=== PATIENT | male | born 1950 | race Caucasian/White ===

== ENCOUNTER → 2016-10-12 | Outpatient (REF) | payer MEDICARE, BC ==
[2016-10-12 14:18] LABS: FERRITIN 79 NG/ML (26-388); PERCENT SATURATION 12.5 % (19.7-37.4); TOTAL IRON BINDING CAPACITY 345 UG/DL (250-450); TOTAL PROTEIN 6.9 GM/DL (6.4-8.2)
[2016-10-12 14:19] LABS: RETIC HEMOGLOBIN CONTENT CHr 31.4 PG (24-36); RETICULOCYTE % ADVIA2120 3.3 % (0.5-1.5)
[2016-10-12 14:21] LABS: VITAMIN B12 LEVEL 687 PG/ML
[2016-10-12 14:32] LABS: FOLATE > 24.0 NG/ML
[2016-10-14 13:47] LABS: ALBUMIN 4.03 GM/DL (3.29-5.55); ALBUMIN % 58.4 % (55.8-66.1)
== END ==
LOC: M LAB REF 13:13
PROVIDERS: ATTEND Internal Medicine Medical Oncology
DX: D64.9 Anemia, unspecified (principal)

== ENCOUNTER → 2016-10-26 | Outpatient (REF) | payer MEDICARE, BC | LOC: M LAB REF 16:35 | PROVIDERS: ATTEND Internal Medicine Medical Oncology | DX: D64.9 Anemia, unspecified (principal) ==

== ENCOUNTER → 2016-11-23 | Outpatient (REF) | payer MEDICARE, BC ==
[~2016-11-23] MED LIST: ASCO500T PO; ASPI1TAB PO; ATEN50TA2 PO; BUSP15TA47 PO; CITA40TA4 PO; CLON0.25 PO; COLA100C PO; COMBAER6 INH; DOXY100T PO; ENAL20TA PO; FERR324T2 PO; FISH1000 PO; FLON1SPR; GABA600T PO; HYDR-3713 PO; INSURSD SC; JANU100T PO; LIDO1OIN2 TOP; LIDO5DIS36 TD; MELO15TA4 PO; METF1000 PO; MIRA33504 PO; OMEP40CA2 PO; SENO8.6T10 PO; SIMV20TA2 PO; TRAM50TA2 PO; TYLE325T5 PO; TYLE500T78 PO; VITA10002 PO
== END ==
LOC: M LAB REF 17:11
PROVIDERS: ATTEND Internal Medicine Medical Oncology
DX: D50.9 Iron deficiency anemia, unspecified (principal)

== ENCOUNTER 2016-11-26 13:48 | Inpatient (IN) | payer MEDICARE, BC ==
[~2016-11-26] VITALS: Ht 182.9 cm; Wt 88.5 kg
[2016-11-26 17:40] VITALS: BP 170/82
[2016-11-26] MEDS ORDERED: NS 1,000 ML IV SCH (18:46)
[2016-11-26] MEDS ORDERED: ACETAMINOPHEN TAB 650MG DOSE (2X325MG) PO PRN (19:00)
[2016-11-26] MEDS ORDERED: TYLE500T78 PO (19:21)
[2016-11-26] MEDS ORDERED: BUSP15TA47 PO (19:27)
[2016-11-26] MEDS ORDERED: CLON0.25 PO (19:27)
[2016-11-26] MEDS ORDERED: ATEN50TA2 PO (19:27)
[2016-11-26] MEDS ORDERED: COMBAER6 INH (19:27)
[2016-11-26] MEDS ORDERED: ASPI1TAB PO (19:27)
[2016-11-26] MEDS ORDERED: ASCO500T PO (19:27)
[2016-11-26] MEDS ORDERED: HYDR-3713 PO (19:27)
[2016-11-26] MEDS ORDERED: CITA40TA4 PO (19:27)
[2016-11-26] MEDS ORDERED: TYLE325T5 PO (19:27)
[2016-11-26] MEDS ORDERED: COLA100C3 PO (19:30)
[2016-11-26] MEDS ORDERED: VITA10002 PO (19:30)
[2016-11-26] MEDS ORDERED: GABA600T PO (19:37)
[2016-11-26] MEDS ORDERED: FISH1000 PO (19:37)
[2016-11-26] MEDS ORDERED: DOXY100T PO (19:37)
[2016-11-26] MEDS ORDERED: FERR324T2 PO (19:37)
[2016-11-26] MEDS ORDERED: FLON1SPR (19:37)
[2016-11-26] MEDS ORDERED: INSURSD SC (19:41)
[2016-11-26] MEDS ORDERED: LIDO1OIN2 TOP (19:43)
[2016-11-26] MEDS ORDERED: LIDO5DIS36 TD (19:44)
[2016-11-26] MEDS ORDERED: OMEP40CA2 PO (19:45)
[2016-11-26] MEDS ORDERED: MIRA33504 PO (19:48)
[2016-11-26] MEDS ORDERED: SIMV20TA2 PO (19:48)
[2016-11-26] MEDS ORDERED: SENO8.6T10 PO (19:49)
[2016-11-26] MEDS ORDERED: JANU100T PO (19:51)
[2016-11-26] MEDS ORDERED: TRAM50TA2 PO (19:51)
[2016-11-26] MEDS ORDERED: ENAL20TA PO (19:51)
[2016-11-26] MEDS ORDERED: MELO15TA4 PO (19:51)
[2016-11-26] MEDS ORDERED: METF1000 PO (19:51)
[2016-11-26 19:55] VITALS: BP 167/82
[2016-11-26] MEDS ORDERED: GLUCAGON FOR INJ 1 MG VIAL (J1610) SC PRN (20:30)
[2016-11-26] MEDS ORDERED: ALBUTEROL 90 MCG/ACT 8GM HFA INHALER INH PRN (20:30)
[2016-11-26] MEDS ORDERED: DEXTROSE 50% 50 ML SYRINGE IV PRN (20:30)
[2016-11-26] MEDS ORDERED: clonazePAM 0.5 MG TAB PO SCH (20:30)
[2016-11-26] MEDS ORDERED: GLUCOSE 4 GM CHEW TABLET PO PRN (20:30)
--- NOTE | 2016-11-26 20:51 | HPEPDOC ---
General Date of Admission Nov 26, 2016 at 17:22 Chief Complaint The patient is a 66-year-old male admitted with a reason for visit of Acute Kid Injury, Hypercalcemia. History of Present Illness 66-year-old male with past medical history of hypertension, dyslipidemia, diabetes mellitus, iron deficiency anemia, GERD, and depression presented initially to the [facility] hospital after he was noted to have elevated serum calcium levels and acute kidney injury on blood work. Apparently, the patient was getting worked up for anemia by his starch cooker, Dr. Cottrell, who had requested the patient to get a screening EGD and colonoscopy done. However, prior to getting this done his lab work was concerning for the aforementioned values. The patient was subsequently admitted at [facility] for hypercalcemia and acute renal failure. During his time there, the patient was given IV fluid hydration and a workup for hypercalcemia was initiated. The patient has been transferred here today at the request of his attending physician, Dr. Rakesh Renteria at [facility], as the patient's calcium levels have remained elevated despite IV fluid hydration, and his renal function has not significantly improved. At this time, the patient states that he is feeling generally fatigued, but denies any acute complaints of shortness of breath, chest pain, palpitations, lightheadedness, dizziness, abdominal pain, or any nausea/vomiting/diarrhea. As far as the patient's clinical status at this time, a workup for multiple myeloma is underway, and blood work is pending from [facility]. Nephrology has been consulted here to aid in the treatment of hypercalcemia. The patient will be admitted under the service of Dr Navarro for further evaluation and management. Home Medications Scheduled (Flonase Allergy Relief) 50 Mcg/Act Spr 2 SPRAYS NA DAILY (Reported) Albuterol/Ipratropium (Combivent Respimat 20-100 Mcg/Act) 1 Aer Aer 1 PUFF INH QID (Reported) Ascorbic Acid (Ascorbic Acid) 500 Mg Tab 500 MG PO DAILY (Reported) Aspirin (Aspirin 81) 81 Mg Tab 81 MG PO DAILY (Reported) Atenolol (Atenolol) 50 Mg Tab 50 MG PO DAILY (Reported) Buspirone HCl (Buspirone HCl) 15 Mg Tab 15 MG PO TID (Reported) Citalopram Hydrobromide (Citalopram Hydrobromide) 40 Mg Tab 40 MG PO DAILY ( Reported) Clonazepam (Clonazepam Odt) 0.25 Mg Tab 0.25 MG PO BID (Reported) VERIFIED RX WITH PHARMACY. WAS RECEIVING 0.5MG TABS AT [facility] Cyanocobalamin (Vitamin B-12) 1,000 Mcg Tab 1,000 MCG PO DAILY (Reported) Docusate Sod/Senna (Senokot S 8.6-50 mg) 1 Tab Tab 1 TAB PO QHS (Reported) Docusate Sodium (Colace) 100 Mg Cap 100 MG PO BID (Reported) STARTED AT [facility] Doxycycline Hyclate (Doxycycline Hyclate) 100 Mg Tab 100 MG PO BID (Reported) STARTED AT [facility] Enalapril Maleate (Enalapril Maleate) 20 Mg Tab 20 MG PO QHS (Reported) Ferrous Sulfate (Ferrous Sulfate) 324 Mg Tab 324 MG PO BID (Reported) Fish Oil (Fish Oil) 1,000 Mg Cap 1,000 MG PO DAILY (Reported) Gabapentin (Gabapentin) 600 Mg Tab 600 MG PO TID (Reported) RECEIVING BID AT [facility], ON TID AT HOME Insulin Human Regular (Humulin R) 1 Units/0.01 Ml Soln 0 SC ACHS (Reported) STARTED AT [facility] Lidocaine (Lidoderm) 5 % Dis 1 PATCH TD DAILY (Reported) STARTED AT [facility] Meloxicam (Meloxicam) 15 Mg Tab 15 MG PO DAILY (Reported) Metformin Hydrochloride (Metformin HCl) 1,000 Mg Tab 1,000 MG PO BID (Reported ) Omeprazole (Omeprazole) 40 Mg Cap 40 MG PO QHS (Reported) WAS PUT ON PANTOPRAZOLE AT [facility] Polyethylene Glycol (Miralax) 1 Pow Pow 17 GM PO DAILY (Reported) STARTED AT [facility] Simvastatin (Simvastatin) 20 Mg Tab 20 MG PO QHS (Reported) WAS TAKING PRAVASTATIN 40MG AT [facility] Sitagliptin Phosphate (Januvia) 100 Mg Tab 100 MG PO DAILY (Reported) Scheduled PRN Acetaminophen (Tylenol) 325 Mg Tab 650 MG PO Q6H PRN PRN PAIN / FEVER (Reported ) Acetaminophen/Hydrocodone (Hydrocodone/Acetaminophen 5-325 mg) 1 Tab Tab 1 TAB PO Q6H PRN PRN PAIN (Reported) STARTED AT [facility] Tramadol HCl (Tramadol HCl) 50 Mg Tab 50 MG PO Q6H PRN PRN PAIN (Reported) Allergies Coded Allergies: No Known Allergies (Unverified , 11/26/16) Past Medical History Medical History As noted in HPI. Family History Significant Family History: No pertinent family hx Social History * Smoker: Denies Alcohol: Denies Drugs: denies Recent Travel/Sick Contacts: Denies: Recent sick contacts, Recent travel Review of Symptoms Other systems 10 point review of systems negative unless otherwise specified in HPI. Physical Examination General Exam: Positive: Alert, Cooperative, No Acute Distress ENT Exam: Positive: Atraumatic, Mucous membr. moist/pink Neck Exam: Negative: JVD Chest Exam: Positive: Clear to auscultation, Normal air movement Heart Exam: Positive: Normal S1, Normal S2, Rate Normal Telemetry: Positive: Sinus Abdomen Exam: Positive: Soft, Negative: Tenderness Extremity Exam: Negative: Swelling, Tenderness Vital Signs As noted in the EMR. Laboratory Data Labs 24H Laboratory Tests 2 11/26/16 19:27: 25-Hydroxy Vitamin D Total 48.6, Parathyroid Hormone (Intact) < 6.3L Plan / VTE VTE Prophylaxis Ordered?: Yes Plan Plan Hypercalcemia possibly secondary to multiple myeloma Admit to PCU SPEP, UPEP, immunofixation studies already ordered, and currently pending from [facility]-Will need to follow-up on results once they become available Patient's serum calcium was initially noted to be 14.4, is currently down trending at 13.2 Continue IV fluid hydration at 75 mL's an hour Calcitonin 400 interunits every 12 hours ordered PTH-RP, PTH intact, vitamin D levels ordered CT of the chest with no masses found from [facility] Nephrology consultation, will see the patient in the a.m. Acute kidney injury Patient's initial serum creatinine noted to be 2.5 at [facility], this is down trending and currently 2.2 Baseline noted to be close to 1.0 Possibly related to underlying multiple myeloma Renal ultrasound with no acute abnormalities noted Urine studies noted Continue to withhold nephrotoxins IV fluid hydration Nephrology on board History of Iron deficiency anemia Hemoglobin noted to be 7.3 on lab work this morning If the patient's hemoglobin continues to trend downward, would benefit from a transfusion Continue ferrous sulfate Chest wall abscess, status post I&D at [facility] Continue doxycycline Diabetes mellitus Continue insulin sliding scale Hypertension Continue current regimen, DEISY inhibitor withheld secondary to YEVGENIY Dyslipidemia Continue statin GERD Continue PPI Depression Continue citalopram, BuSpar DVT prophylaxis-heparin subcutaneous The patient will be admitted under the service of Dr. Navarro , who will begin to follow the patient on 11/27. PÉREZ ACEVEDO MD Nov 26, 2016 20:51
[2016-11-26] MEDS ORDERED: FERROUS SULFATE 325MG TAB PO SCH (21:00)
[2016-11-26] MEDS: CALCITONIN SALMON (MIACALCIN) 400INTERNATIONAL UNITS/2ML INJ (J0630) SQ SCH (22:37)
[2016-11-26] MEDS: SENOKOT S TAB PO SCH (22:38)
[2016-11-26] MEDS: busPIRone 5 MG TAB PO SCH (22:38)
[2016-11-26] MEDS: SIMVASTATIN 20 MG TAB PO SCH (22:39)
[2016-11-26] MEDS: HEPARIN SOD (PORCINE) 5000 UNITS/ML VIAL SC SCH (22:40)
[2016-11-26] MEDS: HumaLOG INSULIN (NovoLOG) PER UNIT SC SCH (22:44)
[2016-11-26] MEDS: NORCO, ANEXSIA 5/325MG TABLET (HYDROcodone/ACETAMINOPHEN) PO PRN (23:12)
[2016-11-26] MEDS: DOXYCYCLINE HYCLATE 100 MG TAB PO SCH (23:13)
[2016-11-26 23:53] VITALS: BP 162/87
[2016-11-27] MEDS ORDERED: amLODIPine 5 MG TAB PO ONE (01:15)
[2016-11-27 05:01] VITALS: BP 158/78
[2016-11-27 05:18] LABS: MEAN CORPUSCULAR HEMOGLOBIN 28.7 pg (27.0-33.0); MEAN CORPUSCULAR HGB CONC 32.6 g/dl (32.0-36.5); MEAN CORPUSCULAR VOLUME 88.1 fl (80.0-96.0); PLATELET COUNT, AUTOMATED 174 k/mm3 (150-450); RED CELL DISTRIBUTION WIDTH 15.9 % (11.5-14.5); WHITE BLOOD COUNT 5.8 K/mm3 (4.0-10.0)
[2016-11-27] MEDS: NORCO, ANEXSIA 5/325MG TABLET (HYDROcodone/ACETAMINOPHEN) PO PRN ×4 (05:19→23:57)
[2016-11-27] MEDS: HEPARIN SOD (PORCINE) 5000 UNITS/ML VIAL SC SCH ×3 (05:19→21:20)
[2016-11-27 05:31] LABS: ALBUMIN 2.8 GM/DL (3.2-5.2); ALBUMIN/GLOBULIN RATIO 0.9 (1.00-1.93); BILIRUBIN,TOTAL 0.2 MG/DL (0.2-1.0); CALCIUM LEVEL 11.2 MG/DL (8.8-10.2); CREATININE FOR GFR 2.21 MG/DL (0.70-1.30); GLOMERULAR FILTRATION RATE 32.1 (>49); MAGNESIUM LEVEL 1.1 MG/DL (1.8-2.4); POTASSIUM SERUM 4.1 MEQ/L (3.5-5.1); TOTAL PROTEIN 5.9 GM/DL (6.4-8.2)
[2016-11-27 07:20] VITALS: BP 150/68
[2016-11-27 08:43] LABS: PERCENT SATURATION 22.4 % (19.7-37.4)
[2016-11-27] MEDS: NS 1,000 ML IV SCH ×2 (08:48→14:25)
[2016-11-27] MEDS: HumaLOG INSULIN (NovoLOG) PER UNIT SC SCH ×4 (08:48→21:20)
[2016-11-27] MEDS: MIRALAX *UNIT DOSE* 17GM PACKET PO SCH (08:49)
[2016-11-27] MEDS: CYANOCOBALAMIN 500 MCG TAB PO SCH (08:51)
[2016-11-27] MEDS: ATENOLOL 50 MG TAB PO SCH (08:52)
[2016-11-27] MEDS: busPIRone 5 MG TAB PO SCH ×3 (08:52→21:19)
[2016-11-27] MEDS: CitaloPRAM (CeleXA) 20 MG TAB PO SCH (08:53)
[2016-11-27] MEDS: ASPIRIN 81 MG ENTERIC TAB PO SCH (08:54)
[2016-11-27] MEDS: OMEGA-3 1050MG CAPSULE PO SCH (08:54)
[2016-11-27] MEDS: DOXYCYCLINE HYCLATE 100 MG TAB PO SCH ×2 (08:55→21:20)
[2016-11-27] MEDS ORDERED: ASCORBIC ACID 500 MG TAB PO SCH (09:00)
[2016-11-27] MEDS: FLUTICASONE PROP 0.05% NASAL SPRAY 16 GM (FLONASE) SCH (09:02)
--- NOTE | 2016-11-27 09:02 | REP ---
Clinical: Myeloma with low grade fever . Technique: PA and lateral. Comparison: None . Findings: The mediastinum and cardiothymic silhouette are normal. The lung volumes are symmetric and normal. No acute consolidation, effusion, or pneumothorax. Skeletal structures are intact and normal for age. Impression: No acute cardiopulmonary process appreciated. If the patient remains symptomatic consider chest CT for further investigation. Signed by Kennedy Gamino MD 11/27/2016 08:53 A
[2016-11-27] MEDS: FERROUS SULFATE 325MG TAB PO SCH (09:06)
[2016-11-27 09:08] LABS: RETIC HEMOGLOBIN CONTENT CHr 32.1 PG (24-36); RETICULOCYTE ABSOLUTE ADVIA212 39 x10(9)/L (17-77)
[2016-11-27 09:10] LABS: REASON FOR REVIEW COMPREHENSIVE REVIEW
[2016-11-27] MEDS: CALCITONIN SALMON (MIACALCIN) 400INTERNATIONAL UNITS/2ML INJ (J0630) SQ SCH ×2 (10:19→21:20)
[2016-11-27] MEDS ORDERED: LACTULOSE 20 GM/30 ML SYRUP UD PO ONE (11:30)
[2016-11-27] MEDS ORDERED: MAG SULF 1GM/100ML (MAG RUN) 1 GM in APPROPRIATE DILUENT 1 EA IV ONE (11:30)
[2016-11-27 12:00] VITALS: BP 154/80
--- NOTE | 2016-11-27 12:17 | CR ---
DATE OF CONSULTATION: 11/26/2016 REQUESTING PHYSICIAN: Dr. Kane Walker CONSULTING PHYSICIAN: Dr. Grimm REASON FOR CONSULTATION: Management of acute kidney injury and hypercalcemia. CHIEF COMPLAINT: The patient was transferred from [facility] yesterday because of acute kidney injury and hypercalcemia. HISTORY OF PRESENT ILLNESS: Mr. Augusto Salamanca is a 66-year-old male with a past medical history of hypertension, history of iron deficiency, also following up with hematology as an outpatient, depression, who was admitted to [facility] about three days ago before being transferred to [facility]. He was sent to the hospital because of abnormal laboratories, which included elevated serum calcium levels and elevated creatinine. The patient was given IV fluid hydration at the hospital, which slightly improved his creatinine, but he essentially kept on having hypercalcemia. The patient was also being given Bactrim initially for cellulitis and Bactrim was stopped. He was switched to doxycycline, but because of elevated creatinine and hypercalcemia and anemia and possibility of malignancy, the patient was transferred to [facility] yesterday for further evaluation and management and a higher level of care. Nephrology service was called for management of acute kidney injury and hypercalcemia. The patient is a poor historian at this time. Most of the history was obtained from the transferring physician at [facility], from the patient's records and chart. The patient was started on IV fluid hydration yesterday and he was also started on calcitonin 400 units subcutaneously every 12 hours last night after discussion with the marine extension agent hospitalist. I saw the patient today in the morning. He is alert and oriented times two at this time and he does not have any active complaints apart from having constipation and generalized fatigue and weakness. PAST MEDICAL HISTORY: 1. Hypertension. 2. Hyperlipidemia. 3. Iron deficiency anemia. 4. Gastroesophageal reflux disease (GERD). 5. Depression. 6. The patient denies diabetes, although it is documented in his chart that he is diabetic. PAST SURGICAL HISTORY: The patient reports a history of metallic plate in one of his legs after trauma. He denies any other surgical history in the past. ALLERGIES: No known drug allergies. FAMILY HISTORY: No significant family history of end stage renal disease requiring hemodialysis or any cancers. SOCIAL HISTORY: The patient denies any smoking, drug abuse, or alcohol abuse. REVIEW OF SYSTEMS: CONSTITUTIONAL: The patient denies any fevers, chills, or rigors, but he does report about a 30 pound weight loss in the last one year. EYES: He denies any blurry vision or double vision. ENT: He denies any dysphagia or odynophagia or ear discharge. CARDIOVASCULAR: He denies any chest pain or palpitations. RESPIRATORY: He denies any shortness of breath, cough or wheezing. GASTROINTESTINAL: He denies any nausea or vomiting, but he does report constipation, and he has been constipated for the last 3 to 4 days. GENITOURINARY: He denies any dysuria or hematuria. HEMATOLOGIC/ONCOLOGIC: He reports a history of anemia and he is being worked up by hematology as well. MUSCULOSKELETAL: He denies any muscle aches and pains. CENTRAL NERVOUS SYSTEM (AWARD CLERK): He denies any history of seizures or stroke. PSYCHIATRIC: He reports a history of depression. SKIN: He denies any rashes or ulcers. ENDOCRINE: The patient denies any history of hypothyroidism or hyperthyroidism. All other review of systems was negative. PHYSICAL EXAMINATION: VITAL SIGNS: Temperature is 97.5 degrees Fahrenheit, blood pressure is 150/68, pulse is 60, respiratory rate of 18, saturating 95% on room air. Intake and output: Urine output recorded as 1.8 liters yesterday and 1.4 liters so far today since overnight. HEAD AND NECK EXAM: Extraocular muscles intact. Pupils are equal, round and reactive to light. Mucous membranes are slightly dry. Neck is supple. There is no jugular venous distention (JVD). CARDIOVASCULAR: S1, S2. Regular rate. No murmur, rub or gallop. RESPIRATORY: Chest is clear to auscultation bilaterally. Bilateral equal air entry. No rales or rhonchi. ABDOMEN: Soft. Positive bowel sounds. Nontender. No ascites. No organomegaly. EXTREMITIES: No clubbing or cyanosis. Pulses are 2+. No edema of the bilateral lower extremities. NEUROLOGIC: No focal neurological deficits. Power is 5/5 in all extremities. PSYCHIATRIC: Normal mood and affect. SKIN: No rashes or ulcers. LABORATORY REVIEW: Complete blood count (CBC) showed WBC 5.8, hemoglobin is 7.9, platelets of 174. Urinalysis showed 1+ protein. Negative leukocyte esterase. Negative nitrite., random protein was 159, sodium was 88 and calcium was 23. BMP showed a sodium of 142, potassium 4.1, chloride 108, bicarbonate 26, BUN 29, creatinine 2.2, calcium is 11.2, ionized calcium is 5.8, magnesium is 1.1, albumin is 2.8, vitamin D is 48.6, PTH Is less than 6.3. PTH related protein level is pending. Microbiology: Blood culture is pending. IMAGING: Chest x-ray done this morning showed no acute cardiopulmonary pathology. CURRENT MEDICATIONS: The patient's current inpatient medications include: - normal saline at 150 mL an hour - Tylenol as needed - Proventil two puffs every 4 hours as needed for shortness of breath - amlodipine 5 mg by mouth one dose was given today - aspirin 81 mg by mouth daily - atenolol 50 mg by mouth daily - buspirone 15 mg by mouth three times a day - calcitonin 400 International Units subcutaneously every 12 hours - Klonopin 0.25 mg by mouth twice a day - vitamin B12 1000 mcg by mouth daily - Colace at night - doxycycline 100 mg by mouth twice a day - salicylate 325 mg by mouth daily - Flonase nasal spray daily - heparin subcutaneously - insulin sliding scale - fish oil one by mouth daily - Prilosec 40 mg by mouth at night - Zofran as needed - MiraLAX one packet by mouth daily - simvastatin 20 mg by mouth at night ASSESSMENT: 66-year-old male with past medical history of hypertension and anemia along with depression, admitted this time with acute renal failure and hypercalcemia. PLAN: 1. Hypercalcemia. The patient's PTH level is appropriately low in response to hypocalcemia, most likely it is a hypercalcemia of malignancy. His SPEP and UPEP Immunofixation were already sent from [facility], which are pending. I will not repeat the studies at this time. Hematology is going to come and evaluate the patient as well. He will probably need a bone marrow aspiration as well. Continue IV fluids. Continue calcitonin 400 units every 12 hours. PTH related peptide level is pending. Vitamin D level is normal. If Calcium doesn't improve by tomorrow then he will need zoledronic acid 4 mg IV times one dose. 2. Acute kidney injury. The patient's baseline creatinine, according to transfer records, is around 1. His creatinine at [facility] was 2.5. He was recently on Bactrim as well. Creatinine is trending to 2.2 today. Part of the rise in creatinine might have been secondary to hypercalcemia and volume depletion. Continue IV fluid hydration. Renal ultrasound done at the outside hospital was found to be normal. Urinalysis was noted, which shows 1+ protein. No acute need of hemodialysis at this time. 3. Anemia. The patient's iron levels are adequate at this time. His hemoglobin is 7.9. There is no urgent need of blood transfusion; however, I am going to defer Aranesp to Hematology. The patient is also pending hematology evaluation. He will probably need a bone marrow aspiration as well. 4. Hypertension. The patient's DEISY inhibitors were held. Blood pressure is slightly elevated. He was started on amlodipine. If BP stays high then IVF rate will be decreased. 5. Depression. Okay to continue buspirone and citalopram. Klonopin as needed as needed. 6. Hypomagnesemia. The patient will be given a dose of magnesium sulfate 1 gram IV times one dose. 7. Recent chest abscess drainage and cellulitis. The patient is currently on doxycycline, which can be stopped after 1 week. Thank you for involving us in the care of this patient. We shall be happy to follow the patient along with you tomorrow morning. VINCENTD
[2016-11-27 12:26] LABS: TOTAL PROTEIN 6.2 GM/DL (6.4-8.2)
[2016-11-27] MEDS: ACETAMINOPHEN TAB 650MG DOSE (2X325MG) PO PRN ×2 (15:00→21:25)
--- NOTE | 2016-11-27 15:15 | IPNPDOC ---
Date Seen The patient was seen on 11/27/16. Progress Note SUBJECTIVE: Mr. Saalmanca is a 66-year-old male who presents to [facility]'s emergency Department with hypercalcemia. He was transferred from [facility]. Patient reports to me that he has been feeling excessively weak prior to admission and has had an increased fluid intake as well as increased urination. He denies history of kidney stones, nausea, vomiting, hematemesis, palpitations. Reports that he does follow with the medical oncologist to investigate the underlying reason for his hypercalcemia. Patient was quite anemic on presentation and will be receiving 2 units of irradiated packed red blood cells. Patient has no acute complaints at this time. Patient states that at baseline, without illness, he is able to walk around the [facility] 3 times. He reports that now he is now only able to walk one lap around [facility]. OBJECTIVE PHYSICAL EXAMINATION: VITAL SIGNS: Please see below. GENERAL: Very pleasant male who appears stated age, sitting bedside, does not appear to be in any amount of distress HEENT: Atraumatic, normocephalic, PERRL, EOMI, oral mucosa appears pink and moist, nasal septum is midline CARDIOVASCULAR: Regular rate and rhythm, normal S1 and S2, grade 2/6 systolic murmur heard best over the left second intercostal space, no rub or click RESPIRATORY: Clear to auscultation bilaterally, adequate inspiratory and expiratory airway excursion, no wheeze, rhonchi, or crackles ABDOMINAL: Soft, nontender, nondistended, bowel sounds appreciated EXTREMITIES: Peripheral pulses appreciated bilaterally, symmetrical, equal, +2/4 , no appreciable edema NEUROLOGICAL: Cranial nerves II through XII grossly intact, moving all four extremities appropriately PSYCHOLOGICAL: Mood and affect appear appropriate LABORATORY DATA: Please see below. MICROBIOLOGY: Please see below. IMAGING: Portable chest x-ray IMPRESSION: No acute cardiopulmonary processes appreciated. The patient remained symptomatically consider chest CT for further investigation. DVT prophylaxis ordered?: Heparin 5000 units subcutaneously every 8 hours ASSESSMENT AND PLAN: This is a 66-year-old male who initially presented to [facility] with weakness and was found to have hypercalcemia. Etiology of the hypercalcemia is yet to be determined. PROBLEMS: 1. Hypercalcemia: Patient's calcium level was 11.2 with ionized calcium of 5.8. Patient is being worked up for various causes of hypercalcemia, including primary hyperparathyroidism and malignancy. Have included PTH, PTH related peptide, 1,25-hydroxyvitamin D, 25-hydroxyvitamin D, UPEP, SPEP. Medical oncology has also been consulted. Patient is also on calcitonin. Patient remains on intravenous fluid resuscitation with normal saline at 150 mLs per hour. 2. Anemia: Patient's H&H is 7.9 and 24.1, respectively. Patient has been typed and screened and consented and will be receiving 2 units of irradiated leukocyte reduced packed red blood cells. Patient is also receiving iron supplementation. 3. Abscess: Patient had a recent abscess I&D. He remains on doxycycline. 4. Acute renal failure: Patient's BUN and creatinine are 29 and 2.2, respectively. Urinalysis is essentially negative. Nephrology has been consulted. Patient remains on intravenous fluid resuscitation with saline at 150 mLs per hour. 5. Hypertension: Patient remains on atenolol. His blood pressure at time of evaluation was 150/68. 6. Depression/anxiety: Patient remains on Celexa, Klonopin, and BuSpar. 7. Diabetes mellitus: Patient's continued here with sliding scale insulin and hypoglycemic protocol. Patient's blood glucose at time of evaluation was 151. 8. Gastric esophageal reflux disease: Patient remains on Prilosec. 9. Dyslipidemia: Patient remains on Zocor. DISPOSITION: Patient is admitted to the progressive care unit. Currently receiving 2 units of irradiated leukocyte reduced packed red blood cells for his anemia. Is being followed by nephrology for his acute kidney failure. Is currently being worked up for his hypercalcemia, which includes PTH, PTH related peptide, UPEP, SPEP, and vitamin D studies. VS, I&O, 24H, Fishbone Vital Signs/I&O Vital Signs Date Time Temp Pulse Resp B/P Pulse Ox O2 Delivery O2 Flow Rate FiO2 11/27/16 12:10 18 Room Air 11/27/16 12:00 97.8 54 154/80 95 I&O- Last 24 Hours up to 6 AM 11/27/16 06:00 Intake Total 120 ml Output Total 2725 ml Balance -2605 ml Laboratory Data 24H LABS Laboratory Tests 2 11/26/16 19:27: 25-Hydroxy Vitamin D Total 48.6, Parathyroid Hormone (Intact) < 6.3L 11/26/16 22:43: Bedside Glucose (Misc Panel) 150H 3/24/17 04:55: Absolute Reticulocyte Count 39, Blood Urea Nitrogen 29H, Creatinine 2.21H, Sodium Level 142, Potassium Level 4.1, Chloride Level 108H, Carbon Dioxide Level 26, Calcium Level 11.2H, Aspartate Amino Transf (AST/SGOT) 14L, Alanine Aminotransferase (ALT/SGPT) 13, Alkaline Phosphatase 112, Total Bilirubin 0.2, Total Protein 5.9L, Albumin 2.8L, Albumin/Globulin Ratio 0.90L, Anion Gap 8, Differential Pathologist's Review COMPREHENSIVE REVIEW, Differential Slide Review Report, Glomerular Filtration Rate 32.1L, Iron Level 67, Magnesium Level 1.1L, Percent Reticulocyte Count 1.40, Peripheral Blood Smear Path Consult PERIPHERAL SMEAR, Reticulocyte Hgb Content (CHr) 32.1, Total Iron Binding Capacity 299, Transferrin % Saturation 22.4 11/27/16 08:34: Whole Blood Ionized Calcium 5.8H 11/27/16 09:39: Urine Amorphous Sediment , Urine Appearance CLEAR, Urine Color STRAW, Urine pH 6.0, Urine Specific Cameron 1.011, Urine Protein 1+H, Urine Glucose (UA) NEGATIVE, Urine Ketones NEGATIVE, Urine Urobilinogen 0.2, Urine Bilirubin NEGATIVE, Urine Leukocyte Esterase NEGATIVE, Urine Bacteria (Auto) NEGATIVE, Urine Blood NEGATIVE, Urine Calcium Carbonate Cryst(Auto) , Urine Calcium Oxalate Cryst (Auto) , Urine Calcium Phosphate Sisi (Auto) , Urine Cellular Casts , Urine Cystine Crystals , Urine Granular Casts (Auto) , Urine Hyaline Casts (Auto) 0, Urine Leucine Crystals , Urine Mucus (Auto) , Urine Nitrite NEGATIVE, Urine Oval Fat Bodies (Auto) , Urine RBC (Auto) 1, Urine Random Calcium 23.2, Urine Random Creatinine 55.0, Urine Random Sodium 88, Urine Random Total Protein 159.5H, Urine Renal Epithelial Cells , Urine Sperm (Auto) , Urine Squamous Epithelial Cells 0, Urine Transitional Epithelial Cells , Urine Trichomonas (Auto) , Urine Triple Phosphate Cryst (Auto) , Urine Tyrosine Crystals , Urine Uric Acid Crystals (Auto) , Urine WBC (Auto) 1, Urine Waxy Casts (Auto) , Urine Yeast-Like Cells (Auto) 11/27/16 11:38: Bedside Glucose (Misc Panel) 126H 11/27/16 11:40: 25-Hydroxy Vitamin D Total 39.1, Parathyroid Hormone (Intact) < 6.3L, Total Protein 6.2L CBC/BMP Laboratory Tests 11/27/16 04:55 Calcium Level 11.2 H, Aspartate Amino Transf (AST/SGOT) 14 L, Alanine Aminotransferase (ALT/SGPT) 13, Alkaline Phosphatase 112, Total Bilirubin 0.2, Total Protein 5.9 L, Albumin 2.8 L, Red Blood Count 2.74 L, Mean Corpuscular Volume 88.1, Mean Corpuscular Hemoglobin 28.7, Mean Corpuscular Hemoglobin Concent 32.6, Red Cell Distribution Width 15.9 H Microbiology Microbiology 11/27/16 Blood Culture, Received Pending 11/27/16 Stool Occult Blood (HYUN) - Final, Complete 11/27/16 Urine Culture, Received Pending NORMAN MARIANO-Inez Nov 27, 2016 14:33
[2016-11-27 15:40] VITALS: BP 170/90
[2016-11-27 17:20] VITALS: BP 164/80
[2016-11-27 20:00] VITALS: BP 164/74
[2016-11-27] MEDS: SENOKOT S TAB PO SCH (21:19)
[2016-11-27] MEDS: OMEPRAZOLE 20 MG CAP PO SCH (21:19)
[2016-11-27] MEDS: SIMVASTATIN 20 MG TAB PO SCH (21:20)
[2016-11-27] MEDS: ONDANSETRON 4MG/2ML VIAL (J2405) IV PRN (23:54)
[2016-11-28] VITALS: BP 172/76
[2016-11-28] MEDS: MORPHINE 2 MG/ML 1ML SYRINGE IV PRN ×2 (02:02→05:10)
[2016-11-28 04:00] VITALS: BP 176/96
[2016-11-28] MEDS: HEPARIN SOD (PORCINE) 5000 UNITS/ML VIAL SC SCH ×3 (05:08→22:15)
[2016-11-28] MEDS: ONDANSETRON 4MG/2ML VIAL (J2405) IV PRN (05:08)
[2016-11-28 05:34] LABS: MEAN CORPUSCULAR HEMOGLOBIN 29.2 pg (27.0-33.0); MEAN CORPUSCULAR HGB CONC 33.6 g/dl (32.0-36.5); MEAN CORPUSCULAR VOLUME 86.8 fl (80.0-96.0); RED CELL DISTRIBUTION WIDTH 16.3 % (11.5-14.5); WHITE BLOOD COUNT 6.6 K/mm3 (4.0-10.0)
[2016-11-28 05:49] LABS: ALBUMIN 2.9 GM/DL (3.2-5.2); ALBUMIN/GLOBULIN RATIO 0.97 (1.00-1.93); BILIRUBIN,TOTAL 0.2 MG/DL (0.2-1.0); CALCIUM LEVEL 9.7 MG/DL (8.8-10.2); CREATININE FOR GFR 1.55 MG/DL (0.70-1.30); GLOMERULAR FILTRATION RATE 48.3 (>49); POTASSIUM SERUM 3.8 MEQ/L (3.5-5.1); TOTAL PROTEIN 5.9 GM/DL (6.4-8.2)
[2016-11-28 07:20] VITALS: BP 136/73
[2016-11-28] MEDS ORDERED: **hydrALAZINE** 10 MG TAB PO ONE (07:30)
[2016-11-28] MEDS: NORCO, ANEXSIA 5/325MG TABLET (HYDROcodone/ACETAMINOPHEN) PO PRN ×2 (07:43→11:32)
[2016-11-28] MEDS: HumaLOG INSULIN (NovoLOG) PER UNIT SC SCH ×4 (07:44→22:30)
[2016-11-28] MEDS ORDERED: ENALAPRIL MALEATE 10 MG TAB PO ONE (07:45)
[2016-11-28] MEDS: MIRALAX *UNIT DOSE* 17GM PACKET PO SCH ×2 (09:00→11:32)
[2016-11-28] MEDS: CALCITONIN SALMON (MIACALCIN) 400INTERNATIONAL UNITS/2ML INJ (J0630) SQ SCH ×2 (09:00→22:15)
--- NOTE | 2016-11-28 10:24 | IPNPDOC ---
Date Seen The patient was seen on 11/28/16. Progress Note SUBJECTIVE: Upon evaluation this morning, Mr. Salamanca is sitting bedside watching television. The only complaint he has is that he has some right-sided lower back pain. He does have Tylenol, morphine, and Fate at his disposal; however, it does not appear to be providing adequate relief. Patient denies vomiting, abdominal pain, hemoptysis, bloody stool. Admits to some feelings of nausea. Does have Zofran prescribed and it provides minimal relief. Continues to report some mild weakness. Further denies chest pain, shortness of breath. Calcium levels one was 9.7. Calcitonin prescription ends today. Patient reports that he has an EGD scheduled on 12/15/[address] Drake. He recalls that his last colonoscopy was approximately 8 years ago. He reports to me that there were no abnormal findings. He thinks that Dr. Knowles in [place] performed his colonoscopy. OBJECTIVE PHYSICAL EXAMINATION: VITAL SIGNS: Please see below. GENERAL: Pleasant 66-year-old male sitting bedside upon evaluation this morning, appears stated age, in no apparent distress HEENT: Atraumatic, normocephalic, PERRL, EOMI, oral mucosa appears pink and moist, nasal septum appears midline, nares are patent CARDIOVASCULAR: Regular rate and rhythm, normal S1 and S2, grade 2/6 systolic murmur heard best over the second intercostal space on the left, no rub, click RESPIRATORY: Clear to auscultation bilaterally, appropriate and adequate inspiratory and expiratory airway excursion, no wheeze, crackles, rhonchi ABDOMINAL: Soft, nontender, nondistended, bowel sounds appreciated EXTREMITIES: Peripheral pulses appreciated bilaterally in upper and lower extremities, equal, +2/4, no appreciable edema NEUROLOGICAL: Cranial nerves II through XII appear grossly intact, moving all four extremities PSYCHOLOGICAL: Mood and affect appear appropriate LABORATORY DATA: Please see below. MICROBIOLOGY: Please see below. DVT prophylaxis ordered?: Heparin 5000 units subcutaneously every 8 hours ASSESSMENT AND PLAN: Mr. Salamanca is a 66-year-old male who presents with hypercalcemia. Etiology is not clear at this time. PROBLEMS: 1. Hypercalcemia: Patient's calcium this morning was 9.7. Calcitonin will be discontinued after today's last dose. PTH is 6.3. This value is low and is appropriate for hypercalcemia. 53-[id number]-Q level is 39.1. This is normal. Medical oncology has been consulted. Patient scheduled for a skeletal survey as well as nuclear medicine bone scan. 2. Left-sided low back pain: Patient reports low back pain since his arrival at the hospital. He is received Tylenol, morphine, and Fate. Does not appear to be providing adequate relief. His Fate dose has been adjusted to every 4 hours from every 6 hours. 3. Hypertension: Patient's blood pressure evaluations morning was 176/96. Patient's BUN/creatinine are 22 and 1.5, respectively. Patient does take enalapril outpatient, but secondary to acute renal failure we'll hold off on restarting patient's home medication. Therefore, started hydralazine to control patient's blood pressure for the time being. 4. Anemia: Patient's H&H is 9.4 and 28, respectively. This is status post transfusion of 2 units of packed red blood cells. Stool occult blood was negative. Patient denies hemoptysis. Patient continues to be weak. Patient does have a prescheduled EGD scheduled outpatient with Dr. Drake on 12/15/2016. Patient continues to receive iron supplementation. 5. Acute renal failure: Patient has been scheduled for renal ultrasound. BUN and creatinine are 22 and 1.55, respectively. Continue nephrology's input. 6. Abscess with cellulitis: Patient has an abscess with surrounding cellulitis under the left axilla. This was incised and drained at an outlying facility. It still continues to have approximately 1.5 inch diameter rubor surrounding the 1/ 8 inch incision site. Unable to express any pus. Very minimal amounts of clear fluid expressed. No fluctuant mass noted. Continue patient on doxycycline. Wound culture and wound care has been ordered. 7. Hyperglycemia: Patient's blood glucose at time of evaluation was 111. Continue with sliding scale insulin at this time. 8. Dyslipidemia: Patient remains on Zocor. 9. Gastroesophageal reflux disease: Patient remains on Prilosec. 10. Nausea: The patient is on Zofran, however patient still continues to complain of nausea. Given a one-time dose of promethazine. DISPOSITION: Patient remains admitted to the progressive care unit. Have consulted medical oncology. Have ordered a skeletal survey as well as nuclear medicine bone scan. Awaiting hypercalcemia workup, including SPEP and UPEP. Have given patient one-time dose of promethazine for persistent nausea. Patient complains of right-sided low back pain, without urinary complaints. Have adjusted patient's Fate pain medicine as well as added a heating pad for symptomatic relief. VS, I&O, 24H, Fishbone Vital Signs/I&O Vital Signs Date Time Temp Pulse Resp B/P Pulse Ox O2 Delivery O2 Flow Rate FiO2 11/28/16 08:13 18 11/28/16 07:30 136/73 11/28/16 07:20 98.7 61 94 Room Air I&O- Last 24 Hours up to 6 AM 11/28/16 06:00 Intake Total 3976 ml Output Total 3050 ml Balance 926 ml Laboratory Data 24H LABS Laboratory Tests 2 11/27/16 09:39: Urine Amorphous Sediment , Urine Appearance CLEAR, Urine Color STRAW, Urine pH 6.0, Urine Specific [place] 1.011, Urine Protein 1+H, Urine Glucose (UA) NEGATIVE, Urine Ketones NEGATIVE, Urine Urobilinogen 0.2, Urine Bilirubin NEGATIVE, Urine Leukocyte Esterase NEGATIVE, Urine Bacteria (Auto) NEGATIVE, Urine Blood NEGATIVE, Urine Calcium Carbonate Cryst(Auto) , Urine Calcium Oxalate Cryst (Auto) , Urine Calcium Phosphate [place] (Auto) , Urine Cellular Casts , Urine Cystine Crystals , Urine Granular Casts (Auto) , Urine Hyaline Casts (Auto) 0, Urine Leucine Crystals , Urine Mucus (Auto) , Urine Nitrite NEGATIVE, Urine Oval Fat Bodies (Auto) , Urine RBC (Auto) 1, Urine Random Calcium 23.2, Urine Random Creatinine 55.0, Urine Random Sodium 88, Urine Random Total Protein 159.5H, Urine Renal Epithelial Cells , Urine Sperm (Auto) , Urine Squamous Epithelial Cells 0, Urine Transitional Epithelial Cells , Urine Trichomonas (Auto) , Urine Triple Phosphate Cryst (Auto) , Urine Tyrosine Crystals , Urine Uric Acid Crystals (Auto) , Urine WBC (Auto) 1, Urine Waxy Casts (Auto) , Urine Yeast-Like Cells (Auto) 11/27/16 11:38: Bedside Glucose (Misc Panel) 126H 11/27/16 11:40: 25-Hydroxy Vitamin D Total 39.1, Parathyroid Hormone (Intact) < 6.3L, Total Protein 6.2L 11/27/16 15:58: Urine Random Creatinine 61.5, Urine Random Total Protein 206.3H 11/27/16 16:55: Bedside Glucose (Misc Panel) 188H 11/27/16 17:43: Whole Blood Ionized Calcium 5.5H 11/27/16 21:07: Bedside Glucose (Misc Panel) 92 11/28/16 04:54: Blood Urea Nitrogen 22H, Creatinine 1.55H, Sodium Level 143, Potassium Level 3.8 , Chloride Level 108H, Carbon Dioxide Level 27, Calcium Level 9.7, Aspartate Amino Transf (AST/SGOT) 15, Alanine Aminotransferase (ALT/SGPT) 14, Alkaline Phosphatase 118H, Total Bilirubin 0.2, Total Protein 5.9L, Albumin 2.9L, Albumin /Globulin Ratio 0.97L, Anion Gap 8, Glomerular Filtration Rate 48.3L CBC/BMP Laboratory Tests 11/28/16 04:54 Calcium Level 9.7, Aspartate Amino Transf (AST/SGOT) 15, Alanine Aminotransferase (ALT/SGPT) 14, Alkaline Phosphatase 118 H, Total Bilirubin 0.2 , Total Protein 5.9 L, Albumin 2.9 L, Red Blood Count 3.22 L, Mean Corpuscular Volume 86.8, Mean Corpuscular Hemoglobin 29.2, Mean Corpuscular Hemoglobin Concent 33.6, Red Cell Distribution Width 16.3 H Microbiology Microbiology 11/27/16 Blood Culture - Preliminary, Resulted No growth after 24 hours . All specim... 11/27/16 Stool Occult Blood (HYUN) - Final, Complete 11/27/16 Urine Culture - Final, Complete NORMAN MARIANO Nov 28, 2016 09:53
--- NOTE | 2016-11-28 10:38 | REP ---
Clinical: Flank pain and nausea with hypercalcemia. Findings: Lung bases demonstrate bibasilar atelectasis. For as are intact and there are liver, spleen, pancreas, gallbladder, bilateral adrenal glands and kidneys are essentially normal for noncontrast evaluation. The enteric system suggests fecal stasis without obstruction or acute inflammatory process. Pelvis demonstrates partially collapsed normal bladder and prominent prostate gland. 2.5 cm fat containing periumbilical hernia noted. No ascites. No free air. No obvious adenopathy. Musculoskeletal structures demonstrate degenerative changes as well as multiple bilateral nondisplaced rib fractures and transverse process fractures of the lumbar vertebral bodies of the indeterminate/chronic age. Impression: Linear bibasilar fibroatelectatic changes. 2.5 cm fat containing periumbilical hernia. No obvious acute intra-abdominal or pelvic pathology. Bilateral nondisplaced rib and lumbar transverse process fractures of indeterminate/chronic age. Signed by Kennedy Gamino MD 11/28/2016 10:29 A
[2016-11-28] MEDS ORDERED: PROMETHAZINE 25 MG TAB PO ONE (11:00)
--- NOTE | 2016-11-28 11:10 | REP ---
Clinical: Acute renal insufficiency. Technique: Real time ernandez scale and color Doppler evaluation of the kidneys using curved array transducer. Findings: The bilateral kidneys are normal in contour, size, echogenicity, and reniform shape. Renovascular calcifications are identified without hydronephrosis, nephrolithiasis, cystic or renal mass lesion. Right kidney measures 11.4 x 5.0 x 5.7 cm. Left kidney measures 11.8 x 5.0 x 6.8 cm. Bladder is incompletely distended but grossly unremarkable. Impression: No evidence for hydronephrosis. Signed by Kennedy Gamino MD 11/28/2016 11:02 A
--- NOTE | 2016-11-28 11:18 | REP ---
Clinical: Hypercalcemia. Technique: AP and lateral views of the skull, cervical, thoracic, and lumbar spine along with AP views of the bilateral upper and lower extremities. Findings: Diffuse age related osteopenia and degenerative changes are appreciated throughout the visualized osseous structures. There is a compression fracture at T6 of indeterminate age. The osseous structures demonstrate a diffuse subtle mottled appearance with innumerable small lytic lesions most pronounced involving the skull pelvis and lower extremities and to a lesser extent the remainder of the examination. Impression: 1. Subtle mottled appearance to the osseous structures compatible with myeloma/metastatic disease. 2. Compression fracture at T6 of indeterminate age. 3. Diffuse age related degenerative changes primarily involving the cervical, thoracic and lumbar spine. Signed by Kennedy Gamino MD 11/28/2016 11:09 A
[2016-11-28] MEDS: CYANOCOBALAMIN 500 MCG TAB PO SCH (11:21)
[2016-11-28] MEDS: FERROUS SULFATE 325MG TAB PO SCH (11:21)
[2016-11-28] MEDS: CitaloPRAM (CeleXA) 20 MG TAB PO SCH (11:21)
[2016-11-28] MEDS: OMEGA-3 1050MG CAPSULE PO SCH (11:21)
[2016-11-28] MEDS: ATENOLOL 50 MG TAB PO SCH (11:22)
[2016-11-28] MEDS: FLUTICASONE PROP 0.05% NASAL SPRAY 16 GM (FLONASE) SCH (11:22)
[2016-11-28] MEDS: ASPIRIN 81 MG ENTERIC TAB PO SCH (11:22)
[2016-11-28] MEDS: busPIRone 5 MG TAB PO SCH ×3 (11:22→20:05)
[2016-11-28] MEDS: DOXYCYCLINE HYCLATE 100 MG TAB PO SCH ×2 (11:22→20:05)
[2016-11-28 12:00] VITALS: BP 160/78
--- NOTE | 2016-11-28 15:20 | IPN ---
DATE: 11/28/2016 Mr. Salamanca is seen this morning on his bedside. He is sitting in the chair at the time of my visit and has just finished eating his breakfast. He has complained of nausea since last night. He reports that he has been sitting in the chair for several hours due to persistent nausea. The patient denies any fever or chills. He has no dyspnea or chest pain. He was initially admitted with acute renal failure and hypercalcemia and has been hydrated and treated with calcitonin. Serum protein electrophoresis is still pending. Vitamin D level and intact parathyroid hormone (PTH) level were low. PHYSICAL EXAMINATION: The patient is awake and alert without any acute distress. Temperature 98.7 degrees Fahrenheit, heart rate 60 per minute, respiratory rate 20 per minut, blood pressure 136/73 mm of mercury, and oxygen saturation 94% on room air. Head is atraumatic. Neck is supple and without thyroid enlargement. Ears, nose and, throat are unremarkable. Pupils equal and reactive to light, and sclerae are anicteric. Neck veins are moderately distended, even sitting upright in the chair. Lungs sound clear to auscultation, and heart sounds are regular. Abdomen is somewhat firm but nontender. Bowel sounds are present. Extremities have no cyanosis or clubbing. Skin has no rash or ulcers. Neurologically he is awake and alert. There is no focal deficit. Today's labs show WBC count 6.6, hemoglobin 9.4, hematocrit 28.0., platelets 166. Sodium 143, potassium 3.8, BUN 22, and creatinine 1.55. Total calcium today is 9.7 and ionized calcium 5.5. Total protein is 5.9 and albumin 2.9. PROBLEMS: 1. Acute renal failure. The patient has gradual improvement in his kidney function. Today his creatinine is down to 1.55. He seems to be somewhat over-hydrated, and intravenous (IV) fluid has already been stopped. We will continue to monitor his kidney function on a daily basis. 2. Hypercalcemia. Calcium level has also improved to normal range. He is receiving calcitonin every 12 hours, and I will cut it down to every 24 hours. We are waiting for serum and urine protein electrophoresis. 3. Persistent nausea. We will get a CT scan of abdomen and pelvis without IV contrast in view of his hypercalcemia and persistent nausea while his calcium level has improved.
--- NOTE | 2016-11-28 15:21 | ECGEPIP ---
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 No prior ECG available for comparison at the time of interpretation. Electronically Signed On 11-28-2016 15:21:48 EDT by Selvin Medina
--- NOTE | 2016-11-28 15:28 | REP ---
Clinical: Chest pain. EKG changes. Comparison: 11/27/2016. Findings: Stable cardiomegaly. Lung grant demonstrate diffuse chronic changes without acute consolidation, effusion, or pneumothorax. 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 Impression: Chronic stable changes. No acute cardiopulmonary process. Signed by Kennedy Gamino MD 11/28/2016 03:19 P
[2016-11-28] MEDS ORDERED: MAG SULF 1GM/100ML (MAG RUN) 1 GM in APPROPRIATE DILUENT 1 EA IV ONE (15:30)
[2016-11-28 15:45] LABS: CALCIUM LEVEL 10.3 MG/DL (8.8-10.2); CREATININE FOR GFR 1.5 MG/DL (0.70-1.30); GLOMERULAR FILTRATION RATE 50.2 (>49); MAGNESIUM LEVEL 1.2 MG/DL (1.8-2.4); POTASSIUM SERUM 3.9 MEQ/L (3.5-5.1)
[2016-11-28 16:00] VITALS: BP 142/98
[2016-11-28] MEDS ORDERED: POTASSIUM CHLORIDE 10 MEQ SR TABLET PO ONE ×3 (16:00→20:30)
[2016-11-28] MEDS: **hydrALAZINE** 10 MG TAB PO SCH ×2 (16:17→20:06)
[2016-11-28] MEDS: MAG SULF 1GM/100ML (MAG RUN) 1 GM in APPROPRIATE DILUENT 1 EA IV SCH ×3 (17:19→20:04)
[2016-11-28 18:46] LABS: CALCIUM LEVEL 10.4 MG/DL (8.8-10.2); CREATININE FOR GFR 1.46 MG/DL (0.70-1.30); GLOMERULAR FILTRATION RATE 51.7 (>49); MAGNESIUM LEVEL 1.7 MG/DL (1.8-2.4); POTASSIUM SERUM 3.8 MEQ/L (3.5-5.1)
--- NOTE | 2016-11-28 19:08 | CR ---
DATE OF CONSULTATION: 11/28/2016 REASON FOR REFERRAL: Anemia, hypercalcemia, rule out multiple myeloma. HISTORY OF PRESENT ILLNESS: Mr. Salamanca is a 66-year-old man who is presently admitted for hypercalcemia. He was first noted to have hypercalcemia and renal insufficiency a few days ago. At present, his calcium level is improving on calcitonin and also his kidney function is improving on present management. PAST MEDICAL HISTORY: 1. Hypertension. 2. Dyslipidemia. 3. Diabetes mellitus. 4. Iron deficiency. 5. Gastroesophageal reflux disease (GERD). 6. Depression. MEDICATIONS: Enalapril, calcitonin, magnesium, hydralazine, potassium chloride, acetaminophen, morphine sulfate, omeprazole, aspirin, atenolol, citalopram, cyanocobalamin, fish oil, fluticasone, ferrous sulfate, doxycycline, senna docusate. ALLERGIES: No known drug allergies. PHYSICAL EXAMINATION: VITAL SIGNS: He was afebrile. Blood pressure 140/98. Oxygen saturation 94% on room air. HEENT: He had pinkish conjunctivae, anicteric sclerae. Moist oral mucosa. No oral mucosal lesions. LUNGS: Fair air entry. No rales, rhonchi or wheezing. HEART: S1, S2 regular. ABDOMEN: Soft, nontender. No guarding. EXTREMITIES: No calf swelling, calf tenderness, and no pedal edema. IMPRESSION AND PLAN: Mr. Salamanca is a 66-year-old man with anemia and hypercalcemia. A bone survey showed a subtle mottled appearance to the osseous structures compatible with bone metastatic disease/myeloma. He did have a serum protein electrophoresis (SPEP) which did not show any M-spike, and serum immunofixation as well as serum free light chain levels have been obtained in [facility], and are all pending at this time. I suggest checking quantitative immunoglobulin, as well as beta-2 microglobulin. We will arrange for a bone marrow aspiration and biopsy on Wednesday. Thank you for this referral.
[2016-11-28 20:00] VITALS: BP 152/72
[2016-11-28] MEDS: OMEPRAZOLE 20 MG CAP PO SCH (20:05)
[2016-11-28] MEDS: SIMVASTATIN 20 MG TAB PO SCH (20:05)
[2016-11-28] MEDS: SENOKOT S TAB PO SCH (20:05)
[2016-11-28] MEDS ORDERED: MAALOX 30 ML SUSP *UDC PO PRN (22:00)
[2016-11-28 23:20] LABS: CALCIUM LEVEL 11.6 MG/DL (8.8-10.2); CREATININE FOR GFR 1.55 MG/DL (0.70-1.30); GLOMERULAR FILTRATION RATE 48.3 (>49); MAGNESIUM LEVEL 2.1 MG/DL (1.8-2.4); POTASSIUM SERUM 4.5 MEQ/L (3.5-5.1)
[2016-11-29] VITALS (8 sets, daily range): BP systolic 138–184; BP diastolic 63–90
[2016-11-29 02:48] LABS: IMMUNOGLOBULIN A 59.1 MG/DL (70-400); IMMUNOGLOBULIN G 651 MG/DL (681-1648)
[2016-11-29] MEDS: ONDANSETRON 4MG/2ML VIAL (J2405) IV PRN ×2 (03:07→13:42)
[2016-11-29 03:14] LABS: IMMUNOGLOBULIN M 16.5 MG/DL (40-230)
[2016-11-29 06:25] LABS: MEAN CORPUSCULAR HEMOGLOBIN 28.4 pg (27.0-33.0); MEAN CORPUSCULAR HGB CONC 33.5 g/dl (32.0-36.5); MEAN CORPUSCULAR VOLUME 84.8 fl (80.0-96.0); RED CELL DISTRIBUTION WIDTH 15.9 % (11.5-14.5); WHITE BLOOD COUNT 7.3 K/mm3 (4.0-10.0)
[2016-11-29 06:51] LABS: ALBUMIN 3.1 GM/DL (3.2-5.2); ALBUMIN/GLOBULIN RATIO 0.91 (1.00-1.93); BILIRUBIN,TOTAL 0.4 MG/DL (0.2-1.0); CALCIUM LEVEL 10.7 MG/DL (8.8-10.2); CREATININE FOR GFR 1.49 MG/DL (0.70-1.30); GLOMERULAR FILTRATION RATE 50.5 (>49); POTASSIUM SERUM 4.7 MEQ/L (3.5-5.1); TOTAL PROTEIN 6.5 GM/DL (6.4-8.2)
[2016-11-29] MEDS: HEPARIN SOD (PORCINE) 5000 UNITS/ML VIAL SC SCH ×3 (06:53→21:33)
[2016-11-29] MEDS: HumaLOG INSULIN (NovoLOG) PER UNIT SC SCH ×4 (07:56→20:41)
[2016-11-29] MEDS: NORCO, ANEXSIA 5/325MG TABLET (HYDROcodone/ACETAMINOPHEN) PO PRN ×4 (07:56→21:40)
[2016-11-29] MEDS ORDERED: CALCITONIN SALMON (MIACALCIN) 400INTERNATIONAL UNITS/2ML INJ (J0630) SQ SCH (09:00)
[2016-11-29] MEDS: FLUTICASONE PROP 0.05% NASAL SPRAY 16 GM (FLONASE) SCH (09:00)
[2016-11-29] MEDS: FERROUS SULFATE 325MG TAB PO SCH (09:57)
[2016-11-29] MEDS: CYANOCOBALAMIN 500 MCG TAB PO SCH (09:57)
[2016-11-29] MEDS: MIRALAX *UNIT DOSE* 17GM PACKET PO SCH (09:57)
[2016-11-29] MEDS: **hydrALAZINE** 10 MG TAB PO SCH ×3 (09:57→21:33)
[2016-11-29] MEDS: CitaloPRAM (CeleXA) 20 MG TAB PO SCH (09:58)
[2016-11-29] MEDS: DOXYCYCLINE HYCLATE 100 MG TAB PO SCH ×2 (09:58→21:32)
[2016-11-29] MEDS: ASPIRIN 81 MG ENTERIC TAB PO SCH (09:58)
[2016-11-29] MEDS: busPIRone 5 MG TAB PO SCH ×3 (09:58→21:32)
[2016-11-29] MEDS: ATENOLOL 50 MG TAB PO SCH (09:58)
[2016-11-29] MEDS: OMEGA-3 1050MG CAPSULE PO SCH (09:58)
--- NOTE | 2016-11-29 10:14 | IPN ---
DATE: 11/29/2016 Telemetry showed irregular rhythm yesterday. Electrolytes were optimized. He complained of back pain, evaluated with skeletal series which showed compression fracture at T6, indeterminate age, compatible with myeloma and metastatic disease. No complaints this morning of chest pain, pressure or tightness, shortness of breath, weakness, numbness, bilateral upper or lower extremities. VITAL SIGNS: Temperature 98.4, pulse 67, respiratory rate 18, blood pressure 160/76, 94% on room air. GENERAL: Awake, alert, and oriented times three, answering questions appropriately. No respiratory distress or use of respiratory accessory muscles. No jugular venous distention (JVD). LUNGS: Clear to auscultation. No wheezing, rales, or rhonchi. HEART: S1, S2, sinus rhythm. ABDOMEN: Firm, nontender, nondistended. Positive bowel sounds times four quadrants. EXTREMITIES: No cyanosis or clubbing. LABORATORY DATA: CBC, metabolic panel, calcium level have been reviewed. Calcium was 10.7 today. Wound left axilla pending. Hemoccult stool 11/27/2016 negative. ASSESSMENT AND PLAN: This is a 66-year-old male with history of hypertension, type 2 diabetes, dyslipidemia, iron deficiency, reflux, and depression who was found to be anemic, hypercalcemic with renal failure, recently treated with Bactrim for left axilla area methicillin-resistant Staphylococcus aureus (MRSA) infection status post incision and drainage. CURRENT ISSUES: 1. Hypercalcemia. Workup included serum protein electrophoresis (SPEP)/urine protein electrophoresis (UPEP). Bone osseus skeletal survey consistent with metastatic disease or myeloma with indeterminate compression fracture. Bone marrow biopsy scheduled for Wednesday with Dr. Cottrell. Bone scan to be done. For hypercalcemia, currently on calcitonin. IV fluids were discontinued due to fluid overload, managed by Dr. Kraft. Defer to Dr. Kraft and Dr. Cottrell regarding clearance for discharge home. The patient's calcium is improved. 2. Renal failure, recent use of Bactrim with hypercalcemia, most likely secondary to myeloma. Managed by Dr. Kraft. Currently on calcitonin for hypercalcemia. IV have been discontinued due to fluid overload. 3. Type 2 diabetes. Consistent-carbohydrate diet. Controlled currently. 4. Abnormal EKG. Continue to monitoring on telemetry. If stable, we may transfer to medical/surgical floor. Optimize potassium and magnesium and await echocardiogram result. 5. Hyperlipidemia, stable. MTDD
[2016-11-29] MEDS: CALCITONIN SALMON (MIACALCIN) 400INTERNATIONAL UNITS/2ML INJ (J0630) SQ SCH ×2 (11:04→21:51)
[2016-11-29] MEDS: MORPHINE 2 MG/ML 1ML SYRINGE IV PRN ×2 (11:04→13:39)
--- NOTE | 2016-11-29 11:11 | IPN ---
DATE: 11/29/2016 Mr. Salamanca is seen this morning on his bedside. He is lying in the bed comfortably. He reports that his nausea has improved. He underwent CT scan of abdomen and pelvis yesterday which did not show any significant abnormalities. The patient denies any dyspnea or chest pain. PHYSICAL EXAMINATION: On physical examination, temperature 98.4 degrees Fahrenheit, heart rate 68 per minute and respiratory rate 20 per minute. Blood pressure 160/76 mmHg and oxygen saturation 94% on room air. Head is atraumatic. Ears, nose and throat are unremarkable. Neck is supple and without jugular venous distention (JVD) , thyroid enlargement or abnormal cervical lymph nodes. Trachea is midline. Pupils are equal and reactive to light and sclera is anicteric. Ears, nose and throat are unremarkable. Heart sounds are regular. Lungs clear to auscultation. Abdomen is soft and nontender. Bowel sounds are normal and there is no palpable organomegaly. Extremities have no cyanosis or clubbing. Skin has no rash or ulcers. Neurologically, he is awake, alert and oriented times three. Intake and output records from yesterday show total intake 1800 and output 2550. LABORATORY DATA: Today's laboratories show WBC count 7.3, hemoglobin 10.2 and hematocrit 30.6, platelets 188. Sodium 143 and potassium 4.7. BUN 20 and creatinine 1.49. Calcium level is 10.7. PROBLEMS: 1. Acute kidney injury. The patient has only slight improvement in his kidney function since yesterday. He is currently not on IV fluids. Due to misunderstanding about calcium level, his calcitonin was stopped yesterday. However, he did not miss a dose. He is back on calcitonin. At present, his oral intake is adequate so we will continue to monitor without IV fluids. 2. Hypercalcemia. Calcium level has improved slightly. We will continue to monitor. He remains on calcitonin and IV fluid has been stopped. 3. Nausea, his nausea has improved and no intervention is indicated. 4. Anemia. The patient did receive two units of packed red blood cells (RBCs) and anemia has also improved and stabilized. No intervention is indicated. 5. Etiology of hypercalcemia. The patient has serum and urine protein electrophoresis pending in the laboratory. Free kappa and lambda light chains are also pending. We will wait for the results and then make further decisions whether he will need a bone marrow biopsy.
--- NOTE | 2016-11-29 13:29 | ECGEPIP ---
Stationary ECG Study [facility] Test Date: 2016-11-28 Pat Name: DARYL YOUSSEF Department: Room: [place] [address] Gender: M Pmo Lead: ORIANA : 1950 Requested By: NORMAN DEJESUS Order Number: [id number] Reading MD: Selvin Medina Measurements Intervals [place] Rate: 60 P: 6 [place]: 161 QRS: 27 QRSD: 121 T: 31 QT: 420 QTc: 420 Interpretive Statements SINUS RHYTHM POSSIBLE RIGHT VENTRICULAR CONDUCTION DELAY No LBBB & decreased heart rate compared with 11/30/2016. Electronically Signed On 11-29-2016 13:29:29 EDT by Selvin Medina
[2016-11-29] MEDS ORDERED: ENALAPRIL MALEATE 10 MG TAB PO SCH (21:00)
[2016-11-29] MEDS: SIMVASTATIN 20 MG TAB PO SCH (21:32)
[2016-11-29] MEDS: SENOKOT S TAB PO SCH (21:32)
[2016-11-29] MEDS: OMEPRAZOLE 20 MG CAP PO SCH (21:32)
[2016-11-29 23:13] LABS: TOTAL VOLUME, URINE 3100 ML
[2016-11-30] MEDS: NORCO, ANEXSIA 5/325MG TABLET (HYDROcodone/ACETAMINOPHEN) PO PRN ×4 (01:56→14:43)
[2016-11-30] MEDS: HEPARIN SOD (PORCINE) 5000 UNITS/ML VIAL SC SCH ×3 (05:26→20:57)
[2016-11-30 05:46] LABS: MEAN CORPUSCULAR HEMOGLOBIN 28.7 pg (27.0-33.0); MEAN CORPUSCULAR HGB CONC 33.7 g/dl (32.0-36.5); MEAN CORPUSCULAR VOLUME 85.2 fl (80.0-96.0); WHITE BLOOD COUNT 6.8 K/mm3 (4.0-10.0)
[2016-11-30 05:58] LABS: ALBUMIN 3.1 GM/DL (3.2-5.2); ALBUMIN/GLOBULIN RATIO 0.91 (1.00-1.93); BILIRUBIN,TOTAL 0.3 MG/DL (0.2-1.0); CALCIUM LEVEL 10.4 MG/DL (8.8-10.2); CREATININE FOR GFR 1.39 MG/DL (0.70-1.30); GLOMERULAR FILTRATION RATE 54.8 (>49); TOTAL PROTEIN 6.5 GM/DL (6.4-8.2)
[2016-11-30 06:00] VITALS: BP 160/85
[2016-11-30] MEDS: HumaLOG INSULIN (NovoLOG) PER UNIT SC SCH ×4 (08:58→20:27)
[2016-11-30] MEDS: ASPIRIN 81 MG ENTERIC TAB PO SCH (08:58)
[2016-11-30] MEDS: DOXYCYCLINE HYCLATE 100 MG TAB PO SCH ×2 (08:59→20:42)
[2016-11-30] MEDS ORDERED: LIDOCAINE 2% MDV 20 ML VIAL SC ONE (09:00)
[2016-11-30] MEDS: ATENOLOL 50 MG TAB PO SCH (09:00)
[2016-11-30] MEDS: **hydrALAZINE** 10 MG TAB PO SCH (09:01)
[2016-11-30] MEDS: OMEGA-3 1050MG CAPSULE PO SCH (09:01)
[2016-11-30] MEDS: CitaloPRAM (CeleXA) 20 MG TAB PO SCH (09:01)
[2016-11-30] MEDS: busPIRone 5 MG TAB PO SCH ×3 (09:02→20:42)
[2016-11-30] MEDS: FERROUS SULFATE 325MG TAB PO SCH (09:03)
[2016-11-30] MEDS: CYANOCOBALAMIN 500 MCG TAB PO SCH (09:03)
[2016-11-30] MEDS: MIRALAX *UNIT DOSE* 17GM PACKET PO SCH (09:04)
[2016-11-30] MEDS: FLUTICASONE PROP 0.05% NASAL SPRAY 16 GM (FLONASE) SCH (09:04)
[2016-11-30] MEDS: CALCITONIN SALMON (MIACALCIN) 400INTERNATIONAL UNITS/2ML INJ (J0630) SQ SCH ×2 (10:18→20:42)
--- NOTE | 2016-11-30 10:42 | IPN ---
DATE: 11/30/2016 Mr. Salamanca is seen this morning on his bedside. He is feeling well and is currently eating breakfast. He denies any nausea, vomiting, dyspnea or chest pain. He is admitted with hypocalcemia and acute kidney injury. He was noticed to have a compression fracture of T6 and also subtle mottled appearance to osseous structures compatible with multiple myeloma or metastatic disease. He has been seen by oncology and is scheduled for a bone marrow biopsy later this afternoon. In the meantime, initially he was treated with IV fluids and calcitonin and calcium level has improved. His kidney function has also improved significantly since admission. On physical exam, temperature 96.7 degrees Fahrenheit, heart rate 80 per minute, respiratory rate 18 per minute. Blood pressure 178/92 mmHg, oxygen saturation 94% in room air. Head is atraumatic. Ears, nose and throat are unremarkable. Neck is supple and without jugular venous distention or thyroid enlargement. Trachea is midline. Heart sounds are regular. Lungs clear to auscultation. Abdomen soft and nontender. Bowel sounds are normal. Extremities have no cyanosis or clubbing. Skin has no rash or ulcers. Neurologically, he is awake, alert and oriented times three. Today's labs show sodium 141, potassium 4.0. BUN 21 and creatinine 1.39. Calcium level is 10.4, total protein 6.5 and albumin 3.1. Serum protein electrophoresis is still pending. PROBLEMS: 1. Acute renal failure: Most likely related to hypercalcemia and dehydration. Kidney function has improved significantly. The patient might have mild underlying chronic kidney disease. At this point, will continued to monitor kidney function without any intervention. 2. Hypercalcemia: Most likely this is related to malignancy. He is scheduled for a bone marrow biopsy today. Calcium level has improved significantly and he remains on calcitonin. At this point, IV fluid has already been stopped. Will try to get the results of his serum urine protein electrophoresis from [facility]. Free light chains are still pending. 3. Hypertension: Blood pressure is somewhat high today. He is currently on atenolol and I would suggest to add low dose hydralazine for better control of blood pressure. He is already on 10 mg three times a day and we can increase the dose of hydralazine to 25 mg three times a day. He is not a suitable candidate for DEISY inhibitor at this point. I would also avoid a diuretic due to the risk of acute renal failure.
[2016-11-30] MEDS: MORPHINE 2 MG/ML 1ML SYRINGE IV PRN ×4 (11:05→23:22)
[2016-11-30] MEDS ORDERED: **hydrALAZINE HCL** 25 MG TAB PO ONE (11:45)
--- NOTE | 2016-11-30 11:53 | REP ---
Clinical: T6 compression fracture. Technique: AP, lateral, swimmers views of the thoracic spine. Findings: Diffuse osteopenia and multilevel degenerative disc osteophyte complexes are appreciated. There appears to be a compression fracture of T6 with approximately 50% loss of vertebral body height which is of indeterminate age. More subtle compression deformities at T7 and T10 are also suggested and of indeterminate age. Impression: Diffuse osteopenia and advanced degenerative changes. Compression fracture of T6, and mild compression deformities of T7 and T10 are suggested and of indeterminate age. Signed by Kennedy Gamino MD 11/30/2016 11:44 A
[2016-11-30] MEDS: **hydrALAZINE HCL** 25 MG TAB PO SCH ×2 (12:34→17:19)
[2016-11-30 12:46] LABS: ALBUMIN 3.31 GM/DL (3.29-5.55); ALBUMIN % 53.4 % (55.8-66.1); GAMMA GLOBULIN % 9.5 % (11.1-18.8)
[2016-11-30] MEDS ORDERED: NORCO, ANEXSIA 5/325MG TABLET (HYDROcodone/ACETAMINOPHEN) PO PRN (13:15)
--- NOTE | 2016-11-30 13:18 | REP ---
MR THORACIC SPINE WITHOUT CONTRAST: HISTORY: T6 fracture. A small right paracentral disc protrusion is present at the T1-2 level. There is minimal effacement of the thecal sac without spinal cord compression. The T1 neural foramina are patent. A small central disc protrusion is present at the T2-3 level. There is minimal effacement of the thecal sac without spinal cord compression. The T2 neural foramina are patent. A small left paracentral disc protrusion is present at the T3-4 level. There is minimal effacement of the thecal sac without spinal cord compression. The T3 neural foramina are patent. A small central disc protrusion is present at the T4-5 level. There is minimal effacement of the thecal sac without spinal cord compression. The T4 neural foramina are patent. A small right paracentral disc protrusion is present at the T9-10 level. There is minimal effacement of the thecal sac without spinal cord compression. The T9 neural foramina are patent. There is no other disc bulge or herniation. The remaining neural foramina are patent. The spinal cord is normal in signal intensity. Minimal heterogeneous increased signal intensity on T2-weighted images is present in the T6 vertebral body. There is moderate loss of vertebral body height. This represents a subacute fracture. There are old compression fractures of the T5, T7, T8, and T10 vertebral bodies with minimal height loss. There is no subluxation. IMPRESSION: 1. Small disc protrusions at the T1-2 through T4-5 and T9-10 levels without spinal cord compression. 2. Subacute T6 compression fracture with moderate height loss. 3. Old compression fractures of the T5, T7, T8 and T10 vertebral bodies with minimal height loss. Signed by Jonny Mane MD 11/30/2016 01:41 P
--- NOTE | 2016-11-30 14:47 | IPNPDOC ---
Date Seen The patient was seen on 11/30/16. Progress Note SUBJECTIVE: Mr. Salamanca is sitting resting in his hospital bed upon evaluation this morning. He appears quite nervous and is tremulous. Discussed extensively with patient the plan for today, including bone marrow biopsy with Dr. Cottrell and nuclear medicine bone scan. Patient will also be receiving thoracic x-ray and MRI of the thoracic region, per orthopedics recommendation secondary to compression fracture of T6. Obtaining imaging reports from patient's prior hospitalization at [facility]. Patient reports continued back pain, that the pain medication is helping some. Patient denies chest pain, shortness of breath , nausea, vomiting, abdominal pain. Describes a mild amount of weakness. does continue to have a concern that patient is not eating. Patient does state that food has no taste. OBJECTIVE PHYSICAL EXAMINATION: VITAL SIGNS: Please see below. GENERAL: male resting in hospital bed, anxious appearing, tremulous, appears stated HEENT: Atraumatic, normocephalic, PERRLA, EOMI, oral mucosa appears pink and moist, nasal septum midline, nares are patent CARDIOVASCULAR: Regular rate and rhythm, normal S1 and S2, grade 2/6 systolic murmur heard best over the left second intercostal space on the no rub, click RESPIRATORY: Clear to auscultation bilaterally, adequate inspiratory and expiratory airway excursion, no wheeze, rhonchi, crackles ABDOMINAL: Soft, nontender, nondistended, bowel sounds appreciated EXTREMITIES: Peripheral pulses appreciated bilaterally, symmetrical, equal, +2/4 , no appreciable edema NEUROLOGICAL: Cranial nerves II through XII grossly intact, moving all four extremities appropriately PSYCHOLOGICAL: Anxious appearing, tremulous LABORATORY DATA: Please see below. MICROBIOLOGY: Please see below. IMAGING: Thoracic spine x-ray IMPRESSION: Diffuse osteopenia and advanced degenerative changes. Compression fracture of T6, and mild compression deformities of T7 and T10 are suggested and of indeterminate age. Thoracic spine MRI IMPRESSION: 1. Small disc protrusions at the T1-2 through T4-5 and T9-10 levels without spinal cord compression. 2. Subacute T6 compression fracture with moderate height loss. 3. Old compression fractures of the T5, T7, T8 and T10 vertebral bodies with minimal height loss. DVT prophylaxis ordered?: Out of bed at will with assistance ASSESSMENT AND PLAN: This is a 66-year-old male who presents with acute renal failure and hypercalcemia. Etiology of hypercalcemia is not clear at this time. PROBLEMS: 1. Hypercalcemia: Patient's calcium is morning is 10.4. Patient remains on calcitonin 400 units 1 every 12 hours. We'll continue to monitor daily calcium levels. Awaiting results of nuclear medicine bone scan. Skeletal survey reported a "subtle mottled appearance to the osseous structures compatible with myeloma/metastatic disease. Compression fracture at T6 of indeterminate age. Diffuse age related degenerative changes primarily involving the cervical, thoracic and lumbar spine." Dr. Cottrell will be performing bone marrow biopsy this afternoon at 3 PM. Awaiting chemistry and immunology results. 2. Acute renal failure: Patient's BUN and creatinine are 21 and 1.3, respectively. Nephrology recommends no further intervention at this time. 3. Low back pain: Patient continues to have low back pain. Appears minimally controlled with morphine and [place]. Have adjusted patient's morphine to 2 mg every 2 hours. Consider adjusting patient's [place] to 2 tabs every 4 hours as allowed based on Tylenol's limited per 24 hours of 4 g. Have consulted orthopedics. Have requested imaging reports from [facility]. Results of thoracic x-ray and MRI are listed above. 4. Hypertension: Patient's current blood pressure is 192/110. Patient's pain is not optimally controlled at this time. We'll attempt to control patient's pain and hope to see a decrease in patient's blood pressure. Patient is on atenolol 50 mg daily and hydralazine has been increased from 10mg to 25 mg 4 times a day. 5. Anemia: Patient's H&H is 10.2 and 30.3, respectively. Patient is status post 2 units of packed red blood cells. On a daily CBC 6. Abscess with cellulitis: Patient has an abscess with surrounding cellulitis under the left axilla. This was incised and drained at an outlying facility. Culture results and negative. Continues with doxycycline. 7. Anxiety/depression: Patient remains on BuSpar, Klonopin, and Celexa. 8. Hyperglycemia: Patient's blood glucose this morning was 133. Continue with sliding scale insulin at this time. 9. Dyslipidemia: Patient remains on Zocor. 10. Gastroesophageal reflux disease: Patient remains on Prilosec and Mylanta. 11. Nausea: The patient is on Zofran. DISPOSITION: [facility]. The patient on calcitonin for hypercalcemia. Nephrology recommends no further intervention at this time. He continues to improve with an H&H of 10.6 and 30.3 , respectively. Orthopedics has been consulted secondary to patient's persistent low back pain and compression fracture T6 of indeterminate age. Have requested imaging reports from [facility]. Thoracic x-ray and MRI results are listed above. Awaiting chemistry and immunology results for further workup of hypercalcemia. Dr. Cottrell will be performing a bone marrow biopsy this afternoon. Awaiting results of patient's nuclear medicine bone scan. Plan is to optimize patient medically and discharge based on results of biopsy and nuclear medicine scan in order for patient to receive optimal outpatient management. VS, I&O, 24H, Fishbone Vital Signs/I&O Vital Signs Date Time Temp Pulse Resp B/P Pulse Ox O2 Delivery O2 Flow Rate FiO2 11/30/16 13:10 20 11/30/16 12:34 192/110 11/30/16 09:00 91 11/30/16 06:52 Room Air 11/30/16 06:00 96.7 94 I&O- Last 24 Hours up to 6 AM 11/30/16 06:00 Intake Total 2885 ml Output Total 2425 ml Balance 460 ml Laboratory Data 24H LABS Laboratory Tests 2 11/29/16 16:29: Bedside Glucose (Misc Panel) 173H 11/29/16 20:29: Bedside Glucose (Misc Panel) 141H 11/30/16 05:21: Blood Urea Nitrogen 21H, Creatinine 1.39H, Sodium Level 141, Potassium Level 4.0 , Chloride Level 105, Carbon Dioxide Level 27, Calcium Level 10.4H, Aspartate Amino Transf (AST/SGOT) 15, Alanine Aminotransferase (ALT/SGPT) 14, Alkaline Phosphatase 124H, Total Bilirubin 0.3, Total Protein 6.5, Albumin 3.1L, Albumin/ Globulin Ratio 0.91L, Anion Gap 9, Glomerular Filtration Rate 54.8 11/30/16 12:24: Bedside Glucose (Misc Panel) 137H CBC/BMP Laboratory Tests 11/30/16 05:21 Calcium Level 10.4 H, Aspartate Amino Transf (AST/SGOT) 15, Alanine Aminotransferase (ALT/SGPT) 14, Alkaline Phosphatase 124 H, Total Bilirubin 0.3 , Total Protein 6.5, Albumin 3.1 L, Red Blood Count 3.56 L, Mean Corpuscular Volume 85.2, Mean Corpuscular Hemoglobin 28.7, Mean Corpuscular Hemoglobin Concent 33.7, Red Cell Distribution Width 16.0 H Microbiology Microbiology 11/27/16 Blood Culture - Preliminary, Resulted No Growth after 72 hours. All specime... 11/27/16 Stool Occult Blood (HYUN) - Final, Complete 11/27/16 Urine Culture - Final, Complete 11/28/16 Gram Stain - Final, Resulted 11/28/16 Wound Culture, Resulted Pending NORMAN MARIANO-Inez Nov 30, 2016 14:47 GENO ROGER MD Dec 09, 2016 21:19
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
[2016-11-30] MEDS ORDERED: **hydrALAZINE HCL** 25 MG TAB PO SCH ×2 (16:00)
--- NOTE | 2016-11-30 16:16 | REP ---
WHOLE-BODY BONE SCAN: 11/30/2016. Comparison: MRI thoracic spine 11/30/2016, bone survey 11/28/2016. Clinical history: Hypercalcemia, anemia. Renal failure with blood transfusion 3 days ago. Back pain with multiple compression fractures. Type 2 diabetes. Findings: The patient received 20.7 mCi of technetium 99m MDP via an IV. Delayed whole body anterior and posterior images along with anterior and posterior oblique images of the chest, pelvis and lateral views of the neck and skull, knees and feet were obtained. Findings. There is increased uptake at T6, T8, T10 and T12 corresponding to compression fractures noted on the MRI thoracic spine and radiographs. There is increased uptake in the posterior elements. There is also increased uptake in multiple ribs bilaterally in a pattern more consistent with metastatic disease than trauma. Uptake about the AC and glenohumeral joints, elbows, knees, cervical spine, vertebral levels, posterior elements of the thoracic and lumbar spine and in the bilateral hips, left greater than right. There is an intramedullary nika in the proximal left femur from the greater trochanter to the distal shaft of the left femur. Some increased uptake at the tibial plateau bilaterally and tibial tubercles, right greater than left as well as distal femur. Minor scattered areas of uptake in the midfoot tarsal bones. Activity is seen in the kidneys and bladder. No abnormal activity in the calvarium. The paranasal sinuses and mandible show some minor increased activity. Impression: 1. Pattern of uptake most consistent with metastatic disease in the ribs and multiple fractures in the thoracic spine at T6, T8, T10 and T12 with compressions. Intramedullary nika in the left femur noted. This shows photopenic area from the ORIF of the intertrochanteric hip fracture, healed and remodeled as on the radiographs. 2. The shoulders, neck, left hip and knees suggestive of degenerative change. Please correlate for metastatic disease based on appearance of the ribs. The spine could be metastatic disease or multiple insufficiency fractures due to the severe osteoporosis. Signed by Kiel Layton MD 11/30/2016 05:46 P
[2016-11-30 16:28] VITALS: BP 182/84
--- NOTE | 2016-11-30 18:30 | ECHO ---
DATE OF PROCEDURE: 11/30/2016 REFERRING PHYSICIAN: Soniya Navarro MD INDICATION: Nonsustained ventricular tachycardia. HEIGHT: 183 cm WEIGHT: 89 kg DIMENSIONS: IVS: 1.4 LV: 4.1 LVPW: 1.4 LA: 3.7 Aorta: 3.0 FINDINGS: The study is of good technical quality. Left ventricle is normal size and normal contractility with estimated left ventricular ejection fraction (LVEF ) 60-65%. Mild to moderate left ventricular hypertrophy (LVH) is present. Right ventricle is normal size. Both atria appear normal. Aortic, mitral, tricuspid and pulmonic valve all appear normal. No pericardial effusion is noted. Inferior vena cava is normal size. Aortic root is normal. Aortic arch and abdominal aorta were not visualized. Doppler interrogation reveals no aortic stenosis or insufficiency. There is trace mitral insufficiency and mild tricuspid insufficiency. Calculated pulmonary artery pressure is in high 30s corresponding to mild pulmonary hypertension. Pulmonic valve is functionally competent. Mitral inflow pattern and tissue Doppler imaging revealed grade 2 diastolic dysfunction. (E velocity 87 cm/s, E prime septal 5.9 cm/s and E prime lateral 9.0 cm/s). CONCLUSIONS: 1. Study is of good technical quality. 2. Normal left ventricle (LV) size with mild to moderate LVH, preserved LV systolic function and likely grade 2 diastolic dysfunction. 3. No hemodynamically significant valvular disease. 4. Normal central venous pressure and likely mild pulmonary hypertension. COMMENTS: Subacute bacterial endocarditis (SBE) prophylaxis is not recommended. Study is overall most consistent with hypertensive heart disease. MTDD
[2016-11-30 18:55] VITALS: BP 182/90
[2016-11-30] MEDS ORDERED: **hydrALAZINE** 50 MG TAB PO ONE (19:30)
[2016-11-30] MEDS: amLODIPine 10 MG TAB PO SCH (19:32)
[2016-11-30] MEDS: OMEPRAZOLE 20 MG CAP PO SCH (20:41)
[2016-11-30] MEDS: SIMVASTATIN 20 MG TAB PO SCH (20:42)
[2016-11-30] MEDS: SENOKOT S TAB PO SCH (20:42)
[2016-11-30 21:00] VITALS: BP 180/92
[2016-11-30] MEDS ORDERED: CALCITONIN SALMON (MIACALCIN) 400INTERNATIONAL UNITS/2ML INJ (J0630) SQ ONE (21:00)
[2016-11-30] MEDS ORDERED: ISOSORBIDE DIN (ISORDIL) 10 MG TAB PO ONE (21:00)
[2016-11-30 22:05] VITALS: BP 180/98
[2016-11-30] MEDS: **hydrALAZINE** 50 MG TAB PO SCH (22:44)
[2016-12-01] MEDS ORDERED: ISOSORBIDE DIN (ISORDIL) 10 MG TAB PO SCH
[2016-12-01 00:06] LABS: VITAMIN D 1,25 DIHYDROXY 8.3 pg/mL (19.9-79.3)
[2016-12-01] MEDS ORDERED: NITROGLYCERIN 2% OINT 1 GM *U/D* PKT TOP SCH (02:00)
[2016-12-01] MEDS: NORCO, ANEXSIA 5/325MG TABLET (HYDROcodone/ACETAMINOPHEN) PO PRN ×3 (03:00→23:28)
[2016-12-01 04:24] VITALS: BP 150/70
[2016-12-01] MEDS: MORPHINE 2 MG/ML 1ML SYRINGE IV PRN ×3 (04:24→15:07)
[2016-12-01 06:00] VITALS: BP_SYST 152; BP_SYST 168; BP_DIAS 78; BP_DIAS 95
[2016-12-01 06:00] LABS: MEAN CORPUSCULAR HEMOGLOBIN 28.6 pg (27.0-33.0); MEAN CORPUSCULAR HGB CONC 33.6 g/dl (32.0-36.5); MEAN CORPUSCULAR VOLUME 85.1 fl (80.0-96.0); RED CELL DISTRIBUTION WIDTH 15.9 % (11.5-14.5); WHITE BLOOD COUNT 7.9 K/mm3 (4.0-10.0)
[2016-12-01] MEDS: **hydrALAZINE** 50 MG TAB PO SCH ×3 (06:09→17:18)
[2016-12-01] MEDS: HEPARIN SOD (PORCINE) 5000 UNITS/ML VIAL SC SCH ×3 (06:09→23:02)
[2016-12-01 06:17] LABS: ALBUMIN 3.3 GM/DL (3.2-5.2); ALBUMIN/GLOBULIN RATIO 1.03 (1.00-1.93); BILIRUBIN,TOTAL 0.3 MG/DL (0.2-1.0); CALCIUM LEVEL 10.2 MG/DL (8.8-10.2); CREATININE FOR GFR 1.41 MG/DL (0.70-1.30); GLOMERULAR FILTRATION RATE 53.9 (>49); POTASSIUM SERUM 3.8 MEQ/L (3.5-5.1); TOTAL PROTEIN 6.5 GM/DL (6.4-8.2)
[2016-12-01] MEDS: FLUTICASONE PROP 0.05% NASAL SPRAY 16 GM (FLONASE) SCH (08:20)
[2016-12-01] MEDS: busPIRone 5 MG TAB PO SCH ×3 (08:20→20:50)
[2016-12-01] MEDS: MIRALAX *UNIT DOSE* 17GM PACKET PO SCH (08:21)
[2016-12-01] MEDS: CitaloPRAM (CeleXA) 20 MG TAB PO SCH (08:21)
[2016-12-01] MEDS: CYANOCOBALAMIN 500 MCG TAB PO SCH (08:22)
[2016-12-01] MEDS: HumaLOG INSULIN (NovoLOG) PER UNIT SC SCH ×4 (08:22→20:51)
[2016-12-01] MEDS: DOXYCYCLINE HYCLATE 100 MG TAB PO SCH ×2 (08:22→20:51)
[2016-12-01] MEDS: ISOSORBIDE DIN. (ISORDIL) 20 MG TAB PO SCH ×2 (08:23→13:42)
[2016-12-01] MEDS: amLODIPine 10 MG TAB PO SCH (08:23)
[2016-12-01] MEDS: FERROUS SULFATE 325MG TAB PO SCH (08:23)
[2016-12-01] MEDS: OMEGA-3 1050MG CAPSULE PO SCH (08:23)
[2016-12-01] MEDS: ASPIRIN 81 MG ENTERIC TAB PO SCH (08:23)
[2016-12-01] MEDS: ATENOLOL 50 MG TAB PO SCH (08:23)
--- NOTE | 2016-12-01 13:39 | IPNPDOC ---
Date Seen The patient was seen on 12/01/16. Progress Note SUBJECTIVE: Mr. Salamanca is resting in bed comfortably upon evaluation this morning. He states that he still feels somewhat weak, but denies dizziness, lightheadedness, falls. Has no further complaints. Does have a question about when he can go home. Have discussed with patient that a bone biopsy has been requested secondary to oncology's recommendation that the patient's hypercalcemia is less likely related to multiple myeloma, however the etiology of his hypercalcemia is still not clear. Higher on the suspicion is metastatic disease. Consulted interventional radiology and have also discussed the case personally with interventional radiology. The question arises about which area of bone to biopsy. Hypermetabolic regions are noted along the ribs as well as the vertebra. Immunoglobulins have returned and are low and there were no monoclonal bands noted on immunofixation. Cultures returned on abscess and is positive for MRSA. OBJECTIVE PHYSICAL EXAMINATION: VITAL SIGNS: Please see below. GENERAL: Very pleasant male resting comfortably in bed upon evaluation this morning, appears stated age, in no apparent distress HEENT: Atraumatic, normocephalic, PERRL, EOMI, oral mucosa appears moist, nasal septum appears midline, nares patent CARDIOVASCULAR: Regular rate and rhythm, grade 2/6 systolic murmur heard best at the second intercostal space on the left, no rub or click RESPIRATORY: Clear to auscultation bilaterally, adequate inspiratory and extremely weak excursion no wheeze, rhonchi, crackles ABDOMINAL: Round, soft, nontender, nondistended, bowel sounds appreciated EXTREMITIES: Peripheral pulses appreciated bilaterally in upper extremities, equal, symmetrical, +2/4; peripheral pulses difficult to appreciated in lower extremities bilaterally, mild edema noted in lower extremities NEUROLOGICAL: Cranial nerves II through XII are grossly intact in all four extremities appropriately PSYCHOLOGICAL: Mood and affect appear appropriate LABORATORY DATA: Please see below. MICROBIOLOGY: Please see below. IMAGING: Nuclear medicine bone scan IMPRESSION: 1. Pattern of uptake most consistent with metastatic disease in the ribs and multiple fractures in the thoracic spine at T6, T8, T10 and T12 with compressions. Intramedullary nika in the left femur noted. This shows photopenic area from the ORIF of the intertrochanteric hip fracture, healed and remodeled as on the radiographs. 2. The shoulders, neck, left hip and knees suggestive of degenerative change. Please correlate for metastatic disease based on appearance of the ribs. The spine could be metastatic disease or multiple insufficiency fractures due to the severe osteoporosis. DVT prophylaxis ordered?: Heparin 5000 units subcutaneously every 8 hours ASSESSMENT AND PLAN: This is a 66-year-old male who initially presented with hypercalcemia and acute renal failure. Laboratory evaluation thus far etiology of hypercalcemia has been negative. Nuclear medicine bone scan appears to point more in the direction of metastatic disease. PROBLEMS: 1. Hypercalcemia: Patient's calcium is 10.2. His calcitonin has been adjusted to intranasal spray once a day. Continue to monitor calcium while hospitalized. Nuclear medicine bone scan report is mentioned above. Considering a bone scan. Have consulted interventional radiology. Question to consider is which area of hypermetabolic bone to biopsy. Bone marrow biopsy pathology results are pending. Immunoglobulins are low, immunofixation reveals no monoclonal bands. SPEP was negative. Hypercalcemia less likely related to multiple myeloma. Higher on the suspicion is metastatic disease. PSA is been ordered to evaluate prostate. 2. Hypertension: Patient's blood pressure currently is 162/80. Overnight his blood pressures were quite difficult to control with systolic blood pressure remaining in the 180s. Hydralazine was adjusted to 50 mg every 6 hours, Norvasc 10 mg daily was added as well as Nitropaste 1 g every 6 hours, and isosorbide dinitrate 10 mg every 8 hours. It appears that patient's blood pressure was eventually stabilized. Nephrology has recommended that patient's kidneys have stabilized and then we can restart patient's DEISY inhibitor. Have added enalapril 20 mg at night. We'll continue to monitor patient's blood pressure and discontinue superfluous blood pressure stabilizing medications. 3. Acute renal failure: Patient's BUN and creatinine are 23 and 1.4, respectively. Have recommended that we can restart patient's DEISY inhibitor. 3. Low back pain: Patient states that his back pain has improved. The brace provided by orthopedics has helped her medically. Patient still has pain medication at his disposal which includes morphine, [place], Tylenol. 5. Anemia: Patient's H&H is 10.6 and 31.6 respectively. This appears to have stabilized. Patient is status post 2 units of packed red blood cells. Patient continues to be on ferrous sulfate 325 mg. Continue to monitor daily CBC. 6. Abscess with cellulitis: Abscess culture results have returned and a positive for MRSA. Continue patient on doxycycline. Patient has remained afebrile over 24 hours. 7. Anxiety/depression: Patient remains on BuSpar, Klonopin, and Celexa. 8. Hyperglycemia: Patient's blood glucoses morning is 129. Continue with sliding scale insulin at this time. 9. Dyslipidemia: Patient remains on Zocor. 10. Gastroesophageal reflux disease: Patient remains on Prilosec and Mylanta. 11. Nausea: The patient is on Zofran. DISPOSITION: Patient remains admitted to a medical surgical unit. Multiple myeloma workup for patient's hypercalcemia has thus far been negative. Nuclear medicine bone scan appears to be more consistent with metastatic disease. Have consulted interventional radiology; considering a bone biopsy. It appears that patient's pain has improved and the brace provided by orthopedics is providing some relief. Patient's blood pressure appears to be better controlled. Have restarted patient's enalapril secondary to recommendation from nephrology. Patient's abscess culture returned positive for MRSA. Patient is on appropriate antibiotics at this time. Anticipate discharge in a day or 2. VS, I&O, 24H, [facility] Vital Signs/I&O Vital Signs Date Time Temp Pulse Resp B/P Pulse Ox O2 Delivery O2 Flow Rate FiO2 12/01/16 12:26 162/80 12/01/16 08:40 18 Room Air 12/01/16 08:23 76 12/01/16 06:00 99.0 96 I&O- Last 24 Hours up to 6 AM 12/01/16 06:00 Intake Total 1800 ml Output Total 1000 ml Balance 800 ml Laboratory Data 24H LABS Laboratory Tests 2 11/30/16 16:53: Bedside Glucose (Misc Panel) 159H 11/30/16 20:08: Bedside Glucose (Misc Panel) 144H 12/01/16 05:48: Blood Urea Nitrogen 23H, Creatinine 1.41H, Sodium Level 139, Potassium Level 3.8 , Chloride Level 102, Carbon Dioxide Level 27, Calcium Level 10.2, Aspartate Amino Transf (AST/SGOT) 17, Alanine Aminotransferase (ALT/SGPT) 18, Alkaline Phosphatase 132H, Total Bilirubin 0.3, Total Protein 6.5, Albumin 3.3, Albumin/ Globulin Ratio 1.03, Anion Gap 10, Glomerular Filtration Rate 53.9 12/01/16 11:43: Bedside Glucose (Misc Panel) 153H CBC/BMP Laboratory Tests 12/01/16 05:48 Calcium Level 10.2, Aspartate Amino Transf (AST/SGOT) 17, Alanine Aminotransferase (ALT/SGPT) 18, Alkaline Phosphatase 132 H, Total Bilirubin 0.3 , Total Protein 6.5, Albumin 3.3, Red Blood Count 3.72 L, Mean Corpuscular Volume 85.1, Mean Corpuscular Hemoglobin 28.6, Mean Corpuscular Hemoglobin Concent 33.6, Red Cell Distribution Width 15.9 H Microbiology Microbiology 11/27/16 Blood Culture - Preliminary, Resulted No Growth after 72 hours. All specime... 11/27/16 Stool Occult Blood (HYUN) - Final, Complete 11/27/16 Urine Culture - Final, Complete 11/28/16 Gram Stain - Final, Complete 11/28/16 Wound Culture - Final, Complete Staphylococcus Sp Coag Neg Staph.aureus Methicillin Resis NORMAN MARIANO-Inez Dec 01, 2016 13:39
[2016-12-01] MEDS: CALCITONIN NASAL SPRAY 3.7 ML BTL SCH (13:40)
[2016-12-01 14:00] VITALS: BP 134/71
[2016-12-01 14:14] LABS: BETA 2 MICROGLOBULIN 3.5 mg/L (0.6-2.4)
--- NOTE | 2016-12-01 15:42 | IPN ---
DATE: 12/01/2016 SUBJECTIVE: This is a 66-year-old male who was seen and examined at bedside. Overnight, was hypertensive and required placement of multiple anti-hypertensive agents including nitroglycerin, isosorbide mononitrate, Norvasc, hydralazine. This morning feels well. Still has pain to his upper back. No nausea, vomiting , fevers, chills, night sweats, chest pain, shortness of breath. OBJECTIVE: VITAL SIGNS: Blood pressure this morning 152/78, heart rate 76, temperature 99, respiration rate 18, pulse oximetry 96% on room air. Intake and output last 24 hours: 1800 and 1825, net negative of 25. GENERAL: Patient is sitting in bed, comfortable, no acute distress. He is alert, awake, oriented times three, pleasant and cooperative. HEENT: Normocephalic, atraumatic. Eyes: Pupils equal and reactive to light, extraocular movement intact. NECK: Supple, trachea midline, no jugular venous distention (JVD). CHEST: Symmetric chest rise, no accessory muscle use. Breath sounds are clear to auscultation bilaterally. Midchest with Nitro-Bid patch in place. HEART: Regular rate and rhythm. S1, S2 present. ABDOMEN: Protuberant, nontender, nondistended. Bowel sounds present. No guarding, no rebound. EXTREMITIES: No pedal edema. Pedal pulses present bilaterally. SKIN: No obvious rash or lesions appreciated. NEUROLOGIC: He is alert, awake, oriented times three. BACK: T6 spine tender to palpation. LABORATORY DATA: WBC 7.9, hemoglobin 10.6, hematocrit 31.6, platelets 204. Sodium 139, potassium 3.8, chloride 102, carbon dioxide 27, BUN 23, creatinine 1.41, no significant change compared to yesterday, glucose 129, calcium 10.2, alkaline phosphatase 132, total protein 6.5, albumin 3.3. Plasma metanephrines pending. Prostate-specific antigen (PSA) pending. Urine light chains pending. Urine protein electrophoresis (UPEP) pending. IgA, IgM, IgG are low. Wound culture from axilla positive for methicillin-resistant Staphylococcus aureus (MRSA). Peripheral smear showed normocytic anemia, no morphologic abnormality noted. Serum protein electrophoresis (SPEP) reports relative percent hypoalbuminemia, increased alpha1 and alpha2 and beta1 fractions indicative of acute inflammation , hypogammaglobulinemia, suggest serum and urine immunotyping. Bone scan from 11/30/2016, showed pattern of uptake most consistent with metastatic disease in the ribs and multiple fractures in thoracic spine at T6, T8, T10, T12 with compression. Intramedullary nika in left femur noted. Shoulder, neck, left hip and knee suggestive of degenerative change. The spine could be metastatic disease or multiple insufficiency fractures due to severe osteoporosis. Thoracic MRI yesterday showed small disc protrusion at the T1-2 through T4-5 and T9-10 without spinal cord compression, subacute T6 compression fracture with height loss, old compression fracture of T5, T7, T8, T10. MEDICATIONS REVIEWED: He is now on Isordil 20 mg every 8 hours, Norvasc 10 mg daily, hydralazine 50 every 6 hours. He is continued on with calcitonin subcutaneous, iron sulfate 325 mg daily, Klonopin twice a day as needed, atenolol 50 mg daily, and heparin every 8 hours. IMPRESSION: Mr. Augusto Salamanca is a 66-year-old male with past medical history of hypertension and iron deficiency anemia who was transferred from [facility] on 11/25/2016, for evaluation of hypercalcemia and acute renal failure. Of note, he was recently discovered to have cellulitis and was treated with Bactrim and since admission has been on doxycycline. Since admission he is being worked up for malignancy due to his abnormal imaging and hypercalcemia. PLAN: 1. Acute renal failure. Secondary to hypercalcemia and dehydration. Renal function is unchanged compared to yesterday, but significantly improved compared to previous visits. He likely has underlying chronic kidney disease (CKD). This improved significantly with IV hydration. Continue to monitor renal function. 2. Hypercalcemia. Likely secondary to underlying malignancy. He is scheduled for biopsy today with Dr. Nelson or [facility]. His calcium level is now normalized. However, recommend continuing patient on calcitonin treatment, but have discontinued subcutaneous calcitonin and have switched him to nasal spray daily with next dose tomorrow as he did receive subcutaneous today. His light chains and the rest of his malignancy workup are pending at this time. Due to the extent of his imaging, including bone survey and thoracic, it is concerning for metastatic disease and/or myeloma. If a bone biopsy cannot be done today, he might require workup outpatient. 3. Hypertension. Blood pressure was again high last night despite increased dose of hydralazine. He was started on Isordil, Norvasc, and also nitroglycerin along with increased dose of hydralazine to 50 every 6 hours. He normally takes enalapril 20 mg nightly at home. Recommend resuming his angiotensin-converting enzyme (DEISY) inhibitor as his renal function is likely close to his baseline at this time. He is also on atenolol 50 mg daily. 4. Cellulitis. Currently is on doxycycline by primary team. 5. Iron deficiency anemia. He is on ferrous sulfate 325 mg daily. From a renal standpoint, the patient can go home with calcitonin nasal spray with alternating nostril whenever cleared by primary team. My preceptor for this patient encounter was Dr. Lavern Kraft. The preceptor was physically present in the building during the encounter and was fully available. As needed, all aspects of the patient interview, examination, medical decision making process, and medical care plan development were reviewed and approved by the preceptor. The preceptor is aware and concurs with the plan as stated in the body of this note and will attest to such by his cosignature. ARAM
[2016-12-01 18:26] VITALS: BP 180/86
[2016-12-01] MEDS: SENOKOT S TAB PO SCH (20:49)
[2016-12-01] MEDS: SIMVASTATIN 20 MG TAB PO SCH (20:49)
[2016-12-01] MEDS: ENALAPRIL MALEATE 10 MG TAB PO SCH (20:50)
[2016-12-01] MEDS: OMEPRAZOLE 20 MG CAP PO SCH (20:50)
[2016-12-01 22:00] VITALS: BP 168/85
[2016-12-01] MEDS ORDERED: BISACODYL 5 MG TAB PO PRN (23:00)
[2016-12-01] MEDS: ISOSORBIDE DIN. (ISORDIL) 30 MG TAB PO SCH (23:01)
[2016-12-02 00:18] VITALS: BP 146/62
[2016-12-02 05:44] VITALS: BP 160/88
[2016-12-02] MEDS: ISOSORBIDE DIN. (ISORDIL) 30 MG TAB PO SCH (05:46)
[2016-12-02] MEDS: **hydrALAZINE** 50 MG TAB PO SCH ×5 (05:47→23:07)
[2016-12-02 07:06] LABS: MEAN CORPUSCULAR HEMOGLOBIN 29.1 pg (27.0-33.0); MEAN CORPUSCULAR HGB CONC 34.3 g/dl (32.0-36.5); MEAN CORPUSCULAR VOLUME 84.9 fl (80.0-96.0); RED CELL DISTRIBUTION WIDTH 16.2 % (11.5-14.5); WHITE BLOOD COUNT 8.2 K/mm3 (4.0-10.0)
[2016-12-02 07:07] LABS: ALBUMIN 3.3 GM/DL (3.2-5.2); ALBUMIN/GLOBULIN RATIO 1.03 (1.00-1.93); BILIRUBIN,TOTAL 0.3 MG/DL (0.2-1.0); CALCIUM LEVEL 11.2 MG/DL (8.8-10.2); CREATININE FOR GFR 1.37 MG/DL (0.70-1.30); GLOMERULAR FILTRATION RATE 55.7 (>49); POTASSIUM SERUM 3.5 MEQ/L (3.5-5.1); TOTAL PROTEIN 6.5 GM/DL (6.4-8.2)
[2016-12-02] MEDS: HumaLOG INSULIN (NovoLOG) PER UNIT SC SCH ×4 (07:30→20:30)
[2016-12-02] MEDS: MIRALAX *UNIT DOSE* 17GM PACKET PO SCH ×2 (09:00→12:10)
[2016-12-02] MEDS: ONDANSETRON 4MG/2ML VIAL (J2405) IV PRN (09:25)
[2016-12-02] MEDS: OMEGA-3 1050MG CAPSULE PO SCH (09:33)
[2016-12-02] MEDS: NORCO, ANEXSIA 5/325MG TABLET (HYDROcodone/ACETAMINOPHEN) PO PRN ×3 (09:33→23:08)
[2016-12-02] MEDS: ASPIRIN 81 MG ENTERIC TAB PO SCH (09:33)
[2016-12-02] MEDS: DOXYCYCLINE HYCLATE 100 MG TAB PO SCH ×2 (09:33→20:38)
[2016-12-02] MEDS: CitaloPRAM (CeleXA) 20 MG TAB PO SCH (09:34)
[2016-12-02] MEDS: CYANOCOBALAMIN 500 MCG TAB PO SCH (09:34)
[2016-12-02] MEDS: FERROUS SULFATE 325MG TAB PO SCH (09:34)
[2016-12-02] MEDS: busPIRone 5 MG TAB PO SCH ×3 (09:34→20:38)
[2016-12-02] MEDS: ATENOLOL 50 MG TAB PO SCH (09:38)
[2016-12-02] MEDS: CALCITONIN NASAL SPRAY 3.7 ML BTL SCH (09:38)
[2016-12-02] MEDS: amLODIPine 10 MG TAB PO SCH (09:38)
[2016-12-02] MEDS: FLUTICASONE PROP 0.05% NASAL SPRAY 16 GM (FLONASE) SCH (09:39)
[2016-12-02 10:15] LABS: FREE LAMBDA LIGHT CHAINS SERUM 17.19 mg/L (5.71-26.30); KAPPA/LAMBDA RATIO SERUM 149.51 (0.26-1.65)
[2016-12-02] MEDS: MORPHINE 2 MG/ML 1ML SYRINGE IV PRN (10:51)
[2016-12-02] MEDS ORDERED: ZOLEDRONIC ACID 3 MG in D5W 100 ML IV ONE (11:00)
--- NOTE | 2016-12-02 11:32 | RO ---
DATE OF PROCEDURE: 11/30/2016 PREPROCEDURE DIAGNOSIS/INDICATION: Anemia. POSTPROCEDURE DIAGNOSIS: PROCEDURE: Bone marrow aspiration and biopsy, right posterior iliac crest. SURGEON: Zonia Cottrell MD [employer]ER: ANESTHESIA: Informed consent obtained from patient. DESCRIPTION OF PROCEDURE: Under aseptic technique and after injecting local anesthetic, lidocaine 2%, bone marrow aspiration and biopsy done on the right posterior iliac crest. Patient tolerated the procedure well. No complications were noted.
--- NOTE | 2016-12-02 12:00 | IPN ---
DATE: 12/02/2016 SUBJECTIVE: This is a 66-year-old who was seen and examined a the bedside. Overnight he was made nothing by mouth for bone biopsy later today. He was restarted on his home dose enalapril. Isordil as increased from 20 to 30 every 8 hours due to persistent hypertension. Otherwise denies any chest pain, shortness of breath, nausea, vomiting, diarrhea, fevers, chills, abdominal pain. Still reports back pain. OBJECTIVE: VITAL SIGNS: Blood pressure 168/88, heart rate 61, temperature 97.9, respiratory rate 17, pulse ox 95% on room air. T-max was 99.7 yesterday. Intake and output over the last 24 hours 1800 and 2475, net negative of 675. HEENT: Normocephalic, atraumatic. EYES: Pupils equal and reactive to light. NECK: Supple. Trachea midline. No jugular venous distention. CHEST: Symmetric chest rise. No accessory muscle use. Breaths sounds clear to auscultation bilaterally. HEART: Regular rate and rhythm with normal S1, S2. ABDOMEN: Soft, nontender. Protuberant. Bowel sounds present. No guarding. No rebound. EXTREMITIES: No pedal edema. Pedal pulses present bilaterally. SKIN: No obvious rash or lesion. NEURO: He is awake, alert, and oriented times three. BACK: Despite his multiple spine fracture, he is only tender to palpation at T6. LABORATORY DATA: WBC 8.2, hemoglobin 10.3, hematocrit 30.1, platelet 212. Sodium 138, potassium 3.5, chloride 102, carbon dioxide 29, BUN 25, creatinine 1.37, glucose 147, calcium 11.2 increased from yesterday 10.2. Total bilirubin 0.3, AST 21, ALT 21, alkaline phosphatase 126. PSA negative yesterday. Plasma metanephrine, normetanephrine pending. Urinalysis showed 1+ protein, though random urine total protein is anywhere from 159 to 200 range. Total 24 hour urine is 5449. Free light chains are pending. Medications are reviewed. He is now on Isordil 30 every 8 hours, enalapril is his home medication 20 mg every night, Norvasc 10 mg daily, hydralazine 50 mg every 6 hours, atenolol 50 mg by mouth daily. He does not take Isordil and hydralazine or Norvasc at home. IMPRESSION AND PLAN: Mr. Salamanca is a 66-year-old male with the past medical history of hypertension, iron deficiency anemia transferred from [facility] on November 25, 2016 for further evaluation and workup for hypercalcemia and acute renal failure. 1. Acute renal failure: Secondary to hypercalcemia and dehydration. Renal function is not significantly different compared to yesterday. Recommend continue home dose DEISY inhibitor. 2. Hypercalcemia: Yesterday we had changed his calcitonin from subcutaneous to a nasal spray. His calcium level is increased today compared to yesterday. We have ordered for a one-time dose of alendronate which will help with his hypercalcemia and also will treat if he does have multiple myeloma underlying. He is scheduled for a bone biopsy later today with Dr. Nelson. 3. Proteinuria: Though is urinalysis showed only 1+ protein, his random urine protein and also total urine shows significant proteinuria. This could be due to malignancy. Will followup with pathology results from bone biopsy performed later today. 4. Hypertension: His blood pressure remains elevated overnight. He is on an extensive list of antihypertensive regimen including Isordil, Norvasc, hydralazine, enalapril. Nitrobid is now discontinued. 5. Cellulitis: On day 7 of doxycycline by primary team. 6. Iron deficiency anemia: Continue ferrous sulfate daily. My preceptor for this patient encounter was Dr. Lavern Kraft. The preceptor was physically present in the building during the encounter and was fully available. As needed, all aspects of the patient interview, examination, medical decision making process, and medical care plan development were reviewed and approved by the preceptor. The preceptor is aware and concurs with the plan as stated in the body of this note and will attest to such by his/her cosignature. ARAM
--- NOTE | 2016-12-02 13:35 | IPNPDOC ---
Date Seen The patient was seen on 12/02/16. Progress Note SUBJECTIVE: Mr. Salamanca is resting comfortably in bed upon evaluation this morning. Actually evaluated twice as update results changed his course of treatment. Denied nausea, vomiting, abdominal pain, chest pain. Has some questions about when he can eventually go home. Initially discussed at length the bone biopsy that was going to be done with interventional radiology. However, received information that bone biopsy was no longer required as patient has multiple myeloma. Immunology results have returned show high levels of free kappa light chains and a high ratio of kappa to lambda. Oncology would like to follow patient as an outpatient in order to begin treatment. Patient was switched to Zoledronic acid today by nephrology and has already received a dose. Patient's blood pressure has still been a little difficult to control. Made further adjustments to antihypertensive medications. OBJECTIVE PHYSICAL EXAMINATION: VITAL SIGNS: Please see below. GENERAL: Somewhat subdued male resting comfortably in his hospital bed upon evaluation this morning, appears stated age, in no apparent distress HEENT: Atraumatic, normocephalic, PERRL, EOMI, oral mucosa appears pink and moist, nasal septum appears midline, nares appear patent CARDIOVASCULAR: Regular rate and rhythm, grade 2/6 systolic murmur heard best over the second intercostal space on the left, no rub, click RESPIRATORY: Clear to auscultation bilaterally, adequate inspiratory and expiratory airway excursion, no wheeze, rhonchi, crackles ABDOMINAL: Soft, nontender, nondistended, bowel sounds appreciated EXTREMITIES: Peripheral pulses appreciated bilaterally in upper extremities, equal, symmetrical, +2/4, no appreciable edema NEUROLOGICAL: Cranial nerves II through XII grossly intact, moving all four extremities appropriately PSYCHOLOGICAL: Somewhat subdued this morning LABORATORY DATA: Please see below. MICROBIOLOGY: Please see below. DVT prophylaxis ordered?: Heparin 5000 units subcutaneous every 8 hours ASSESSMENT AND PLAN: This is a 66-year-old male who initially presented with hypercalcemia and acute renal failure that has resulted in high suspicion of multiple myeloma. PROBLEMS: 1. Hypercalcemia: Patient's calcium is 11.2. Nephrology has switched patient to calcitonin nasal spray daily as well as providing one-time dose of zoledronic acid. Patient was initially preparing to have a bone biopsy completed with interventional radiology, but oncology has informed us that patient has multiple myeloma and bone biopsy is no longer needed. Recommended patient be medically optimized and discharged in order to follow up with oncology to begin treatment. 2. Hypertension: Patient's current blood pressure is 158/78. Patient remains on hydralazine 50 mg every 6 hours, Norvasc 10 mg daily, atenolol 50 mg daily, enalapril 20 mg at night. Have adjusted isosorbide dinitrate to 40 mg every 8 hours in order to optimize blood pressure. Will continue to monitor vital signs. 3. Acute renal failure: Patient's BUN and creatinine are 25 and 1.37, respectively. Patient has been restarted on home dose of enalapril. Patient's calcium is 11.2. Patient continues with calcitonin nasal spray daily and nephrology provided a one-time dose of zoledronic acid. Patient had a negative fluid balance of 675 mL overnight. 3. Low back pain: Patient states that his back pain has improved. The brace provided by orthopedics has helped him medically. Patient still has pain medication at his disposal which includes morphine, Alvarado, Tylenol. 5. Anemia: Patient's H&H 10.3 and 30.1, respectively. Continue to monitor daily CBC. 6. Abscess with cellulitis: Abscess culture results have returned and a positive for MRSA. Patient continues with doxycycline for 1 more day. Patient continues to remain afebrile. 7. Anxiety/depression: Patient remains on BuSpar, Klonopin, and Celexa. 8. Hyperglycemia: Patient's blood glucoses morning is 147. Continue with sliding scale insulin at this time. 9. Dyslipidemia: Patient remains on Zocor. 10. Gastroesophageal reflux disease: Patient remains on Prilosec and Mylanta. 11. Nausea: The patient is on Zofran. DISPOSITION: Patient remains admitted to the medical surgical unit. Oncology have informed us the patient has multiple myeloma. Recommended the patient be medically optimized in order to be discharged so that treatment can be started. Nephrology provided a one-time dose of zoledronic acid. Patient remains on calcitonin nasal spray daily. H&H appears to stabilize. She has remained afebrile 24 hours. Describes less back pain. Attempting to optimize blood pressure. Have increased isosorbide dinitrate to 40 mg every 8 hours. Patient remains on enalapril, atenolol, Norvasc, and hydralazine. Anticipate discharge tomorrow. VS, I&O, 24H, [facility] Vital Signs/I&O Vital Signs Date Time Temp Pulse Resp B/P Pulse Ox O2 Delivery O2 Flow Rate FiO2 12/02/16 12:09 158/78 12/02/16 11:01 20 Room Air 12/02/16 09:38 75 12/02/16 06:00 97.9 95 I&O- Last 24 Hours up to 6 AM 12/02/16 06:00 Intake Total 1800 ml Output Total 3475 ml Balance -1675 ml Laboratory Data 24H LABS Laboratory Tests 2 12/01/16 17:00: Bedside Glucose (Misc Panel) 128H 12/01/16 20:35: Bedside Glucose (Misc Panel) 150H 12/02/16 06:17: Blood Urea Nitrogen 25H, Creatinine 1.37H, Sodium Level 138, Potassium Level 3.5 , Chloride Level 102, Carbon Dioxide Level 29, Calcium Level 11.2H, Aspartate Amino Transf (AST/SGOT) 21, Alanine Aminotransferase (ALT/SGPT) 21, Alkaline Phosphatase 126H, Total Bilirubin 0.3, Total Protein 6.5, Albumin 3.3, Albumin/ Globulin Ratio 1.03, Anion Gap 7L, Glomerular Filtration Rate 55.7 12/02/16 06:52: Urine Amorphous Sediment , Urine Appearance HAZY, Urine Color YELLOW, Urine pH 6.0, Urine Specific [place] 1.016, Urine Protein 1+H, Urine Glucose (UA) NEGATIVE, Urine Ketones TRACEH, Urine Urobilinogen 0.2, Urine Bilirubin NEGATIVE , Urine Leukocyte Esterase NEGATIVE, Urine Bacteria (Auto) 1+H, Urine Blood NEGATIVE, Urine Calcium Carbonate Cryst(Auto) , Urine Calcium Oxalate Cryst ( Auto) , Urine Calcium Phosphate Sisi (Auto) , Urine Cellular Casts , Urine Cystine Crystals , Urine Granular Casts (Auto) , Urine Hyaline Casts (Auto) 0, Urine Leucine Crystals , Urine Mucus (Auto) SMALL, Urine Nitrite NEGATIVE, Urine Oval Fat Bodies (Auto) , Urine RBC (Auto) 4H, Urine Renal Epithelial Cells , Urine Sperm (Auto) , Urine Squamous Epithelial Cells 0, Urine Transitional Epithelial Cells , Urine Trichomonas (Auto) , Urine Triple Phosphate Cryst (Auto) , Urine Tyrosine Crystals , Urine Uric Acid Crystals ( Auto) , Urine WBC (Auto) 4H, Urine Waxy Casts (Auto) , Urine Yeast-Like Cells ( Auto) 12/02/16 11:49: Bedside Glucose (Misc Panel) 246H CBC/BMP Laboratory Tests 12/02/16 06:17 Calcium Level 11.2 H, Aspartate Amino Transf (AST/SGOT) 21, Alanine Aminotransferase (ALT/SGPT) 21, Alkaline Phosphatase 126 H, Total Bilirubin 0.3 , Total Protein 6.5, Albumin 3.3, Red Blood Count 3.54 L, Mean Corpuscular Volume 84.9, Mean Corpuscular Hemoglobin 29.1, Mean Corpuscular Hemoglobin Concent 34.3, Red Cell Distribution Width 16.2 H Microbiology Microbiology 11/27/16 Blood Culture - Final, Complete NO GROWTH AFTER 5 DAYS 11/27/16 Stool Occult Blood (HYUN) - Final, Complete 11/27/16 Urine Culture - Final, Complete 11/28/16 Gram Stain - Final, Complete 11/28/16 Wound Culture - Final, Complete Staphylococcus Sp Coag Neg Staph.aureus Methicillin Resis NORMAN MARIANO-Inez Dec 02, 2016 13:35
[2016-12-02 14:00] VITALS: BP 138/76
[2016-12-02] MEDS: ISOSORBIDE DIN. (ISORDIL) 20 MG TAB PO SCH ×2 (14:35→22:23)
[2016-12-02] MEDS: SIMVASTATIN 20 MG TAB PO SCH (20:38)
[2016-12-02] MEDS: SENOKOT S TAB PO SCH (20:38)
[2016-12-02] MEDS: OMEPRAZOLE 20 MG CAP PO SCH (20:38)
[2016-12-02] MEDS: ENALAPRIL MALEATE 10 MG TAB PO SCH (20:39)
[2016-12-02 22:00] VITALS: BP 158/80
[2016-12-02] MEDS: HEPARIN SOD (PORCINE) 5000 UNITS/ML VIAL SC SCH (22:23)
[2016-12-03 00:09] LABS: PTH RELATED PEPTIDE < 1.1 pmol/L (.)
[2016-12-03] MEDS: **hydrALAZINE** 50 MG TAB PO SCH (05:52)
[2016-12-03] MEDS: HEPARIN SOD (PORCINE) 5000 UNITS/ML VIAL SC SCH (05:58)
[2016-12-03] MEDS: ISOSORBIDE DIN. (ISORDIL) 20 MG TAB PO SCH (05:59)
[2016-12-03] MEDS: NORCO, ANEXSIA 5/325MG TABLET (HYDROcodone/ACETAMINOPHEN) PO PRN ×2 (05:59→13:33)
[2016-12-03 06:00] VITALS: BP 148/80
[2016-12-03 06:58] LABS: MEAN CORPUSCULAR HEMOGLOBIN 28.7 pg (27.0-33.0); MEAN CORPUSCULAR HGB CONC 33.3 g/dl (32.0-36.5); MEAN CORPUSCULAR VOLUME 86.1 fl (80.0-96.0); RED CELL DISTRIBUTION WIDTH 16.2 % (11.5-14.5); WHITE BLOOD COUNT 7.9 K/mm3 (4.0-10.0)
[2016-12-03 07:08] LABS: ALBUMIN/GLOBULIN RATIO 1.03 (1.00-1.93); BILIRUBIN,TOTAL 0.3 MG/DL (0.2-1.0); CALCIUM LEVEL 10.4 MG/DL (8.8-10.2); CREATININE FOR GFR 1.65 MG/DL (0.70-1.30); GLOMERULAR FILTRATION RATE 44.9 (>49); POTASSIUM SERUM 3.5 MEQ/L (3.5-5.1); TOTAL PROTEIN 5.9 GM/DL (6.4-8.2)
[2016-12-03] MEDS: CitaloPRAM (CeleXA) 20 MG TAB PO SCH (08:26)
[2016-12-03] MEDS: OMEGA-3 1050MG CAPSULE PO SCH (08:26)
[2016-12-03] MEDS: FERROUS SULFATE 325MG TAB PO SCH (08:26)
[2016-12-03] MEDS: busPIRone 5 MG TAB PO SCH (08:26)
[2016-12-03] MEDS: CALCITONIN NASAL SPRAY 3.7 ML BTL SCH (08:26)
[2016-12-03] MEDS: ASPIRIN 81 MG ENTERIC TAB PO SCH (08:26)
[2016-12-03 08:27] VITALS: BP 130/68
[2016-12-03] MEDS: amLODIPine 10 MG TAB PO SCH (08:27)
[2016-12-03] MEDS: ATENOLOL 50 MG TAB PO SCH (08:27)
[2016-12-03] MEDS: DOXYCYCLINE HYCLATE 100 MG TAB PO SCH (08:27)
[2016-12-03] MEDS: MIRALAX *UNIT DOSE* 17GM PACKET PO SCH (08:27)
[2016-12-03] MEDS: CYANOCOBALAMIN 500 MCG TAB PO SCH (08:27)
[2016-12-03] MEDS: HumaLOG INSULIN (NovoLOG) PER UNIT SC SCH ×2 (08:28→12:23)
[2016-12-03] MEDS: FLUTICASONE PROP 0.05% NASAL SPRAY 16 GM (FLONASE) SCH (08:29)
[2016-12-03] MEDS ORDERED: ISOS120T4 PO (09:09)
[2016-12-03] MEDS ORDERED: HYDR50TA PO (09:09)
[2016-12-03] MEDS ORDERED: SITA50TAB PO (09:09)
[2016-12-03] MEDS ORDERED: DOXY100T PO (09:09)
[2016-12-03] MEDS ORDERED: AMLO10TA2 PO (09:09)
[2016-12-03] MEDS ORDERED: CALC20SPR (09:19)
--- NOTE | 2016-12-03 10:56 | IPN ---
DATE: 12/03/2016 SUBJECTIVE: This is a 66-year-old male who was seen and examined at bedside. Yesterday the patient was found to have diagnosis of multiple myeloma and currently there is a plan for him to be seen by oncology and start on chemotherapy tomorrow. He continues to report back pain. No chest pain, shortness of breath, palpitations, fever or chills. Yesterday he again needed increased dose of Isordil from 30 to 40 mg. OBJECTIVE: VITAL SIGNS: Blood pressure 148/80, heart rate 76, temperature 97.8, respiratory rate 64, pulse ox 94% on room air. Intake and output over the last 24 hours 2082 and 2149, two bowel movements documented yesterday. GENERAL: The patient is lying in bed comfortable, in acute distress. He is alert, awake, and oriented times three. Pleasant and cooperative. HEENT: Normocephalic, atraumatic. EYES: Pupils equal and reactive to light. NECK: Supple, trachea midline, no jugular venous distention. CHEST: Symmetric chest rise, no accessory muscle use. Breath sounds are clear to auscultation bilaterally. HEART: Regular rate and rhythm, S1, S2 present and normal. ABDOMEN: Soft, nontender, nondistended, bowel sounds present, no guarding, no rebound. EXTREMITY: No pedal edema. Pedal pulses present bilaterally. SKIN: Without rashes or lesions. Left axilla is without lymphadenopathy or rashes appreciated. NEUROLOGIC: Alert, awake, oriented times three as mentioned above. BACK: lens fabricating machine tender to palpation at T6 region. LABORATORY DATA: WBC 7.9, hemoglobin 9.9, hematocrit 29.8, platelets 205. Sodium 140, potassium 2.5, chloride 102, carbon dioxide 28, BUN 33, creatinine 1.65 increased from yesterday 1.37, glucose 151, calcium 10.4, albumin 3. Free kappa quantity is 2570 and ratio is 149.51, lambda at 17. IMPRESSION AND PLAN: Mr. Salamanca is a 66-year-old male admitted for hypercalcemia and acute renal failure found to be due to multiple myeloma. 1. Acute renal failure: Renal function is slightly worse today compared to yesterday. This is likely secondary to his DEISY inhibitor reinstitution. Therefore, recommend discontinuing enalapril at this time. His renal failure is secondary to his light chain proteins from his underlying cancer. 2. Hypercalcemia: His level is improved today compared to yesterday. He did receive a one-time zoledronic acid. For now ,recommend continue nasal calcitonin. He will have repeat lab work in 1 week. Bone biopsy is no longer needed as he had laboratory testing that came back consistent with multiple myeloma. 3. Proteinuria: His random urine protein with urinalysis showing 1+ protein and significant amount of random and 24-hour urine proteinuria consistent with malignancy. 4. Hypertension: Blood pressure was elevated again yesterday and required increase of Isordil use. Recommend increase hydralazine to 100 mg three times a day. Discontinue enalapril. Continue the rest of his other medications including Norvasc, atenolol. 5. Left axillary cellulitis: Continue doxycycline on day 8 by primary team. 6. Iron deficiency anemia: Continue iron supplementation. From a renal standpoint, the patient can be discharged whenever cleared by primary team. He has plan for chemotherapy with Dr. Cottrell tomorrow morning. My preceptor for this patient encounter was Dr. Lavern Kraft. The preceptor was physically present in the building during the encounter and was fully available. As needed, all aspects of the patient interview, examination, medical decision making process, and medical care plan development were reviewed and approved by the preceptor. The preceptor is aware and concurs with the plan as stated in the body of this note and will attest to such by his/her cosignature. ARAM
[2016-12-03] MEDS ORDERED: **hydrALAZINE** 50 MG TAB PO SCH (14:00)
--- NOTE | 2016-12-04 05:29 | DS.PDOC ---
Discharge Summary General Date of Admission Nov 26, 2016 at 17:22 Date of Discharge Dec 03, 2016 at 13:35 Attending Physician: CECE MCKAY MD Specialist/Consultants Involve: KYLEE SILVA MD Specialist/Consultants Involve 1. Oncology 2. Orthopedic surgery 3. Nephrology Discharge Summary PROCEDURES PERFORMED DURING STAY: Bone marrow aspiration and biopsy, right posterior iliac crest. ADMITTING DIAGNOSES: 1. Hypercalcemia 2. Acute kidney injury 3. History of iron deficiency anemia 4. Chest wall abscess 5. Diabetes mellitus 6. Hypertension 7. Dyslipidemia 8. GERD 9. Depression DISCHARGE DIAGNOSES: 1. Hypercalcemia 2. Acute kidney failure 3. Hypertension 4. Anemia 5. Cutaneous abscess with cellulitis 6. Dyslipidemia 7. Diabetes mellitus 8. Depression 9. Gastroesophageal reflux disease COMPLICATIONS/CHIEF COMPLAINT: Acute Kidney Injury, Hypercalcemia. HISTORY OF PRESENT ILLNESS: Mr. Salamanca is a 66 year old male who presented to [facility] from [facility] after he was noted to have elevated serum calcium levels and acute kidney injury on blood work. Past medical history is significant for hypertension, dyslipidemia, diabetes mellitus, iron deficiency anemia, GERD, and depression. 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 Sliva, who had requested the patient to get a screening EGD and colonoscopy done. However, prior to getting this done his lab work was concerning for the aforementioned values. The patient was subsequently admitted at [facility] for hypercalcemia and acute renal failure. During his time there the patient was given IV fluid hydration and a workup for hypercalcemia was initiated. The patient has been transferred here today at the request of his attending physician, Dr. Rakesh Renteria at [facility], as the patient's calcium levels have remained elevated despite IV fluid hydration, and his renal function has not significantly improved. At this time, the patient states that he is feeling generally fatigued, but denies any acute complaints of shortness of breath, chest pain, palpitations, lightheadedness, dizziness, abdominal pain , or any nausea/vomiting/diarrhea. As far as the patient's clinical status at this time, a workup for multiple myeloma is underway, and blood work is pending from [facility]. Nephrology has been consulted here to aid in the treatment of hypercalcemia. The patient will be admitted under the service for further work- up and management. HOSPITAL COURSE: Patient was admitted to the progressive care unit, intravenous fluid resuscitation was initiated at 75 mLs/hr, calcitonin was prescribed, labs were ordered. A chest CT from [facility] did not reveal any masses. Nephrology was consulted. Patient was given magnesium secondary to hypomagnesemia. Intravenous fluid resuscitation was increased to 150 mLs/hr. Secondary to patient's anemia, he received 2 units of packed red blood cells. H /H stabilized after that point. Blood pressure was difficult to control and various medications (hydralazine, isosorbide dinitrate, atenolol, norvasc) were used to optimize blood pressure. Angiotensin converting enzyme inhibitor (ACEi ) was held secondary to patient's acute renal failure. A skeletal survey was obtained (report listed below) which revealed multiple myeloma versus metastatic disease. Adjustments were made to patient's pain medication and orthopedic surgery was consulted. Recommendations included symptomatic treatment and a thoracic back brace which did provide much relief. Patient had incision and drainage of a left chest wall abscess at the outlying facility. Continued with antibiotics during his hospitalization without incident or complication. For persistent nausea a one-time dose of promethazine was given. A CT of the abdomen and pelvis was also obtained which did not reveal any acute pathology. An echocardiogam was obtained (report below). Intravenous fluid resuscitation was discontinued. Bone marrow biopsy was performed. Intravenous calcitonin was adjusted to intranasal calcitonin. A nuclear medicine bone scan was obtained (please see report below). Kidney function improved so patient's ACEi was restarted, but then discontinued to some mild worsening of kidney function. Chest wall abscess culture was positive for Methicillin resistant Staphylococcus aureus (MRSA). Patient continued with appropriate antibiotic therapy. Bone biopsy was initially scheduled, but cancelled secondary to confirmed multiple myeloma. Also given a one-time dose of zoledronic acid. Patient improved throughout hospital course and was stable at time of discharge. DISCHARGE MEDICATIONS: Please see below. ALLERGIES: Please see below. PHYSICAL EXAMINATION ON DISCHARGE: VITAL SIGNS: Please see below. GENERAL: Quite pleasant male resting comfortably in hospital bed upon evaluation, appropriate, appears stated age, no acute distress HEENT: Atraumatic, normocephalic, PERRL, EOMI, oral mucosa appears pink and moist, nasal septum appears midline, nares are patent NECK: Soft, supple, trachea midline, no lymphadenopathy appreciated CARDIOVASCULAR EXAMINATION: Regular rate and rhythm, grade 2/6 systolic murmur appreciated best over the second intercostal space on the left, no rub, click RESPIRATORY EXAMINATION: Clear to auscultation bilaterally, adequate inspiratory and expiratory airway excursion, no wheeze, crackle, rhonchi ABDOMINAL EXAMINATION: Soft, non-tender, non-distended, bowel sounds appreciated EXTREMITIES: Moving all four extremities appropriately, peripheral pulses appreciated in upper and lower extremities bilaterally, equal, symmetrical, +2/4 SKIN: No visible skin lesions or rashes noted, healing incised and drained abscess along lateral edge of left chest distal to axilla, very minimal erythema noted, no fluctuance or drainage NEUROLOGICAL EXAMINATION: Cranial nerves II-XII grossly intact PSYCHIATRIC EXAMINATION: Mood and affect appropriate LABORATORY DATA: Please see below. IMAGING: Portal chest x-ray IMPRESSION: No acute cardiopulmonary process appreciated. If the patient remains symptomatic consider chest CT for further investigation. Bone survey IMPRESSION: 1. Subtle mottled appearance to the osseous structures compatible with myeloma/ metastatic disease. 2. Compression fracture at T6 of indeterminate age. 3. Diffuse age related degenerative changes primarily involving the cervical, thoracic and lumbar spine. Renal ultrasound IMPRESSION: No evidence for hydronephrosis. CT of abdomen and pelvis without contrast IMPRESSION: Linear bibasilar fibroatelectatic changes. 2.5 cm fat containing periumbilical hernia. No obvious acute intra-abdominal or pelvic pathology. Bilateral nondisplaced rib and lumbar transverse process fractures of indeterminate/chronic age. Portable chest x-ray IMPRESSION: Chronic stable changes. No acute cardiopulmonary process. Thoracic spine x-ray IMPRESSION: Diffuse osteopenia and advanced degenerative changes. Compression fracture of T6, and mild compression deformities of T7 and T10 are suggested and of indeterminate age. MRI of thoracic spine without contrast IMPRESSION: 1. Small disc protrusions at the T1-2 through T4-5 and T9-10 levels without spinal cord compression. 2. Subacute T6 compression fracture with moderate height loss. 3. Old compression fractures of the T5, T7, T8 and T10 vertebral bodies with minimal height loss. Nuclear medicine whole body scan IMPRESSION: 1. Pattern of uptake most consistent with metastatic disease in the ribs and multiple fractures in the thoracic spine at T6, T8, T10 and T12 with compressions. Intramedullary nika in the left femur noted. This shows photopenic area from the ORIF of the intertrochanteric hip fracture, healed and remodeled as on the radiographs. 2. The shoulders, neck, left hip and knees suggestive of degenerative change. Please correlate for metastatic disease based on appearance of the ribs. The spine could be metastatic disease or multiple insufficiency fractures due to the severe osteoporosis. PROGNOSIS: Stable ACTIVITY: As tolerated DIET: 2 g sodium DISCHARGE PLAN: Follow discharge instructions DISPOSITION: 01 Home, Self-Care. DISCHARGE INSTRUCTIONS: 1. Dr. Weaver on 12/11/16 at 1:45pm 2. Dr. Silva, today (12/03/16) 3. Dr. Kraft on 12/16/16 at 9:20am ITEMS TO FOLLOWUP ON ON OUTPATIENT: 1. Lab work to be drawn on 12/09/16; script provided 2. Rolling walker script provided 3. Hypertension management 4. Diabetes mellitus management DISCHARGE CONDITION: Stable TIME SPENT ON DISCHARGE: Greater than 60 minutes. Vital Signs/I&Os Vital Signs Date Time Temp Pulse Resp B/P Pulse Ox O2 Delivery O2 Flow Rate FiO2 12/03/16 13:33 18 Room Air 12/03/16 08:27 76 130/68 12/03/16 06:00 97.8 94 I&O- Last 24 Hours up to 6 AM 12/03/16 06:00 Intake Total 2083.75 ml Output Total 1400 ml Balance 683.75 ml Laboratory Data Labs 24H Laboratory Tests 2 12/02/16 20:29: Bedside Glucose (Misc Panel) 162H 12/03/16 06:23: Blood Urea Nitrogen 33H, Creatinine 1.65H, Sodium Level 140, Potassium Level 3.5 , Chloride Level 102, Carbon Dioxide Level 28, Calcium Level 10.4H, Aspartate Amino Transf (AST/SGOT) 16, Alanine Aminotransferase (ALT/SGPT) 20, Alkaline Phosphatase 110, Total Bilirubin 0.3, Total Protein 5.9L, Albumin 3.0L, Albumin/ Globulin Ratio 1.03, Anion Gap 10, Glomerular Filtration Rate 44.9L 12/03/16 11:40: Bedside Glucose (Misc Panel) 223H CBC/BMP Laboratory Tests 12/03/16 06:23 Calcium Level 10.4 H, Aspartate Amino Transf (AST/SGOT) 16, Alanine Aminotransferase (ALT/SGPT) 20, Alkaline Phosphatase 110, Total Bilirubin 0.3, Total Protein 5.9 L, Albumin 3.0 L 12/03/16 06:24 Red Blood Count 3.46 L, Mean Corpuscular Volume 86.1, Mean Corpuscular Hemoglobin 28.7, Mean Corpuscular Hemoglobin Concent 33.3, Red Cell Distribution Width 16.2 H FSBS Laboratory Tests Test 12/02/16 20:29 12/03/16 11:40 Range/Units Bedside Glucose (Misc Panel) 162 223 80-115 MG/DL Microbiology Microbiology 11/27/16 Blood Culture - Final, Complete NO GROWTH AFTER 5 DAYS 11/27/16 Stool Occult Blood (HYUN) - Final, Complete 11/27/16 Urine Culture - Final, Complete 11/28/16 Gram Stain - Final, Complete 11/28/16 Wound Culture - Final, Complete Staphylococcus Sp Coag Neg Staph.aureus Methicillin Resis Discharge Medications Scheduled (Flonase Allergy Relief) 50 Mcg/Act Spr 2 SPRAYS NA DAILY (Reported) Albuterol/Ipratropium (Combivent Respimat 20-100 Mcg/Act) 1 Aer Aer 1 PUFF INH QID (Reported) Amlodipine Besylate (Amlodipine Besylate) 10 Mg Tab 10 MG PO DAILY Ascorbic Acid (Ascorbic Acid) 500 Mg Tab 500 MG PO DAILY (Reported) Aspirin (Aspirin 81) 81 Mg Tab 81 MG PO DAILY (Reported) Atenolol (Atenolol) 50 Mg Tab 50 MG PO DAILY (Reported) Buspirone HCl (Buspirone HCl) 15 Mg Tab 15 MG PO TID (Reported) Calcitonin [place] (Calcitonin-[place]) 30 Sprays/3.7 Ml Naspr 3.7 ML NA DAILY Citalopram Hydrobromide (Citalopram Hydrobromide) 40 Mg Tab 40 MG PO DAILY ( Reported) Clonazepam (Clonazepam Odt) 0.25 Mg Tab 0.25 MG PO BID (Reported) VERIFIED RX WITH PHARMACY. WAS RECEIVING 0.5MG TABS AT [facility] Cyanocobalamin (Vitamin B-12) 1,000 Mcg Tab 1,000 MCG PO DAILY (Reported) Docusate Sod/Senna (Senokot S 8.6-50 mg) 1 Tab Tab 1 TAB PO QHS (Reported) Docusate Sodium (Colace) 100 Mg Cap 100 MG PO BID (Reported) STARTED AT [facility] Doxycycline Hyclate (Doxycycline Hyclate) 100 Mg Tab 100 MG PO BID STARTED AT [facility] Ferrous Sulfate (Ferrous Sulfate) 324 Mg Tab 324 MG PO BID (Reported) Fish Oil (Fish Oil) 1,000 Mg Cap 1,000 MG PO DAILY (Reported) Gabapentin (Gabapentin) 600 Mg Tab 600 MG PO TID (Reported) RECEIVING BID AT [facility], ON TID AT HOME Hydralazine HCl (Hydralazine HCl) 50 Mg Tab 100 MG PO TID Isosorbide Mononitrate (Isosorbide Mononitrate ER) 120 Mg Tab 120 MG PO DAILY Omeprazole (Omeprazole) 40 Mg Cap 40 MG PO QHS (Reported) WAS PUT ON PANTOPRAZOLE AT [facility] Polyethylene Glycol (Miralax) 1 Pow Pow 17 GM PO DAILY (Reported) STARTED AT [facility] Simvastatin (Simvastatin) 20 Mg Tab 20 MG PO QHS (Reported) WAS TAKING PRAVASTATIN 40MG AT [facility] Sitagliptin (Januvia) 50 Mg Tab 50 MG PO DAILY Scheduled PRN Acetaminophen (Tylenol) 325 Mg Tab 650 MG PO Q6H PRN PRN PAIN / FEVER (Reported ) Acetaminophen/Hydrocodone (Hydrocodone/Acetaminophen 5-325 mg) 1 Tab Tab 1 TAB PO Q6H PRN PRN PAIN (Reported) STARTED AT [facility] Tramadol HCl (Tramadol HCl) 50 Mg Tab 50 MG PO Q6H PRN PRN PAIN (Reported) Allergies Coded Allergies: No Known Allergies (Unverified , 11/26/16) NORMAN MARIANO Dec 03, 2016 20:26 NORMAN MARIANO Dec 03, 2016 20:26
[2016-12-04 10:16] LABS: FREE LAMBDA LIGHT CHAINS URINE 6.23 mg/L (0.24-6.66)
== END 2016-12-03 13:35 | disposition home or self-care (01) | DRG 841 ==
LOC: M PCU 17:22 → M MSPAV 11-29 08:14
PROVIDERS: ADMIT Internal Medicine; ATTEND Hospitalist
PROC: 30253N1 (ICD-10-PCS; 2016-11-27)
PROC: [UNRECOGNIZED PROCEDURE] (2016-11-27)
PROC: 079T3ZX Drainage of Bone Marrow, Percutaneous Approach, Diagnostic (ICD-10-PCS; principal; 2016-11-30)
DX: C90.00 Multiple myeloma not having achieved remission (principal); N17.9 Acute kidney failure, unspecified; L02.213 Cutaneous abscess of chest wall; M84.48XA Pathological fracture, other site, initial encounter for fracture; E83.52 Hypercalcemia; I12.9 Hypertensive chronic kidney disease with stage 1 through stage 4 chronic kidney disease, or unspecified chronic kidney disease; E78.5 Hyperlipidemia, unspecified; E86.0 Dehydration; N18.9 Chronic kidney disease, unspecified; E11.65 Type 2 diabetes mellitus with hyperglycemia; R11.0 Nausea; E83.42 Hypomagnesemia; D50.9 Iron deficiency anemia, unspecified; K21.9 Gastro-esophageal reflux disease without esophagitis; F32.9 Major depressive disorder, single episode, unspecified; Z79.82 Long term (current) use of aspirin; Z79.4 Long term (current) use of insulin; Z79.84 Long term (current) use of oral hypoglycemic drugs; Z79.899 Other long term (current) drug therapy

== ENCOUNTER → 2016-12-10 | Outpatient (REF) | payer MEDICARE, BC ==
[~2016-12-10] MED LIST changes: +AMLO10TA2 PO; +CALC20SPR; -COLA100C PO; +COLA100C3 PO; +HYDR50TA PO; +ISOS120T4 PO; +SITA50TAB PO
== END ==
LOC: M LAB REF 17:13
PROVIDERS: ATTEND Internal Medicine Medical Oncology
DX: C90.00 Multiple myeloma not having achieved remission (principal)

== ENCOUNTER 2016-12-11 10:09 | Outpatient (CLI) | payer MEDICARE, BC ==
[~2016-12-11] VITALS: Ht 182.9 cm; Wt 88.5 kg
[2016-12-11] MEDS ORDERED: ACETAMINOPHEN TAB 650MG DOSE (2X325MG) PO ONE (10:30)
[2016-12-11] MEDS ORDERED: diphenhydrAMINE 50 MG CAP PO ONE (10:30)
[2016-12-11] MEDS ORDERED: FUROSEMIDE 20 MG/2 ML VIAL (J1940) IV ONE (12:00)
== END 2016-12-11 15:00 | disposition home or self-care (01) ==
LOC: M INFU 10:09
PROVIDERS: ATTEND Internal Medicine Medical Oncology
DX: C90.00 Multiple myeloma not having achieved remission (principal); Z79.899 Other long term (current) drug therapy; Z79.82 Long term (current) use of aspirin; Z79.891 Long term (current) use of opiate analgesic
CPT/HCPCS: 36430; J1940; P9016

== ENCOUNTER → 2016-12-17 | Outpatient (REF) | payer MEDICARE, BC ==
[2016-12-17 14:16] LABS: TOTAL PROTEIN 6.1 GM/DL (6.4-8.2)
== END ==
LOC: M LAB REF 13:39
PROVIDERS: ATTEND Internal Medicine Medical Oncology
DX: C90.00 Multiple myeloma not having achieved remission (principal)

== ENCOUNTER 2016-12-24 10:13 | Outpatient (CLI) | payer MEDICARE, BC ==
[~2016-12-24] VITALS: Ht 182.9 cm; Wt 88.5 kg
[~2016-12-24 10:13] MED LIST changes: +ACETAMINOPHEN TAB 650MG DOSE (2X325MG) PO SCH; +diphenhydrAMINE 25 MG CAP PO SCH
[2016-12-24] MEDS ORDERED: FUROSEMIDE 20 MG/2 ML VIAL (J1940) IV ONE ×2 (11:00→13:00)
== END 2016-12-24 17:00 | disposition home or self-care (01) ==
LOC: M INFU 10:13
PROVIDERS: ATTEND Internal Medicine Medical Oncology
DX: D64.9 Anemia, unspecified (principal); C90.00 Multiple myeloma not having achieved remission; Z79.899 Other long term (current) drug therapy; Z79.82 Long term (current) use of aspirin; Z79.51 Long term (current) use of inhaled steroids
CPT/HCPCS: 36430; 86850; 86870; 86900; 86901; 86905; 86920; J1940; P9016

== ENCOUNTER → 2016-12-29 | Outpatient (CLI) | payer MEDICARE, BC ==
[~2016-12-29] MED LIST changes: -ACETAMINOPHEN TAB 650MG DOSE (2X325MG) PO SCH; -diphenhydrAMINE 25 MG CAP PO SCH
--- NOTE | 2016-12-30 08:30 | RADONC ---
RADIATION ONCOLOGY CONSULTATION NOTE DATE: 12/29/2016 CHART NUMBER: [id number] DIAGNOSIS: Multiple myeloma. ECOG PERFORMANCE STATUS: 2. CONSULTATION NOTE: Mr. Salamanca is a very pleasant 66-year-old white male with the diagnosis of multiple myeloma who is presenting to us today for consideration of palliative radiation therapy to his thoracic spine. He is also complaining of pain in other areas such as his ribs. HISTORY OF PRESENT ILLNESS: The patient was in his usual state of health but was noted to have anemia. Workup was undertaken with a bone marrow 11/30/2016 that was consistent with myeloma. The patient had increasing back pain and an MRI of the thoracic spine done 11/30/2016 showed subacute T6 compression fracture of moderate height loss. There were also noted to be old compression fractures at T5, T7, T8, and T10. A bone scan was done on 11/30/2016 as well and showed an uptake consistent with metastatic disease in the ribs with multiple fractures in the thoracic spine at T6, T8, T10, and T12 with compressions. There was an intermedullary nika in the left femur noted. The patient initiated chemotherapy consisting of bortezomib / lenalidomide/ dexamethasone at the end of November. He has also had back brace made for him. The patient continues to have pain is now presenting for consideration of palliative radiation therapy. PAST MEDICAL HISTORY: The patient's past medical history is positive for arthritis, psychiatric illnesses, hypertension, and diabetes. ALLERGIES: The patient has no known drug allergies. SOCIAL HISTORY: The patient does not smoke cigarettes nor to abuse alcohol. FAMILY HISTORY: The patient's family history is positive for a father with some type of cancer. He had a paternal uncle with prostate cancer. REVIEW OF SYSTEMS: The patient's review of systems is positive for anxiety and depression, some weight gain, decreased energy, physical limitations secondary to back pain and the use of the back brace. He denies nausea, vomiting, fevers, chills, night sweats, diplopia, headaches, chest pain, rectal bleeding, urinary or bowel difficulties. PHYSICAL EXAMINATION: The patient is a 66-year-old white male who is presenting wearing a back brace. HEENT exam is normocephalic, atraumatic. Extraocular movements are intact. There is no palpable cervical, supraclavicular, infraclavicular, axillary or inguinal lymphadenopathy present. His lungs are clear to auscultation and percussion. His heart has regular rate and rhythm. He is wearing a back brace. Skeletal examination shows some tenderness present over the right ribs. ASSESSMENT: Mr. Salamanca is presenting to us for consideration of palliative radiation therapy for multiple myeloma to his spine. Clearly the patient is a candidate for this treatment and I have so informed him. I have discussed with the patient in detail the potential benefits as well as possible acute and chronic sequelae of external beam radiation therapy. We discussed logistics of treatment planning, simulation and subsequent fractionated daily radiation treatments. I have scheduled the patient for the next available simulation slot and radiation treatments will begin subsequently. Thank you for allowing us to participate in the care of this very pleasant gentleman. If I could be of any further assistance or provide you with any information, please feel free to contact me anytime. cc: Zonia Cottrell MD *Timo Weaver MD [facility]
--- NOTE | 2016-12-31 08:59 | RADONC ---
RADIATION ONCOLOGY SIMULATION NOTE DATE: 12/31/2016 CHART NUMBER: [id number] Ms. Salamanca was taken to the CT scan for CT simulation of his spinal field. CT was accomplished without difficulty or discomfort. Radiation treatment planning is underway and radiation treatments will begin subsequently. An immobilization device was created and will be used throughout the course of treatment. I was physically present throughout the course of CT simulation.
== END ==
LOC: M ONCR 14:35
PROVIDERS: ATTEND Radiology Radiation Oncology
DX: C90.00 Multiple myeloma not having achieved remission (principal)

== ENCOUNTER 2016-12-31 14:00 | Outpatient (RCR) | payer MEDICARE, BC | END 2017-01-03 | LOC: M ONCR 14:00 | PROVIDERS: ATTEND Radiology Radiation Oncology | DX: C90.00 Multiple myeloma not having achieved remission (principal) ==

== ENCOUNTER → 2016-12-31 | Outpatient (CLI) | payer MEDICARE, BC | LOC: M RAD 08:16 | PROVIDERS: ATTEND Radiology Radiation Oncology | DX: C90.00 Multiple myeloma not having achieved remission (principal) ==

== ENCOUNTER 2017-01-04 10:09 | Outpatient (RCR) | payer MEDICARE, BC ==
--- NOTE | 2017-01-12 08:34 | RADONC ---
RADIATION ONCOLOGY PROGRESS NOTE: DATE: 01/11/2017 CHART NO: [id number] Mr. Salamanca was taken to the linear accelerator today and underwent his first fraction of radiation to his spine. It was tolerated without difficulty or discomfort. His review of systems and physical exams remained unchanged. Radiation was well tolerated and will continue as scheduled.
--- NOTE | 2017-01-19 10:18 | RADONC ---
RADIATION ONCOLOGY PROGRESS NOTE DATE: 01/18/2017 CHART NUMBER: PROGRESS NOTE: Mr. Salamanca is presently at a dose of 1800 cGy to his spine and is tolerating treatments quite well at this point with no complaints related to his radiation therapy. He is having no difficulty swallowing or other problems related to his radiation. The patient tripped over his boxer/[employer] lab and fell on his back. He does have some increased back pain. The dog is doing well, however. REVIEW OF SYSTEMS: The patient's review of systems is positive for his increased back pain but is otherwise is noncontributory. Denies nausea, vomiting, fevers, chills, night sweats, diplopia, headaches, anxiety or depression, anorexia, weight loss, visual disturbances, chest pain, urinary or bowel difficulties, bone pain, or neurological problems. PHYSICAL EXAMINATION: The patient's skin is in good condition with no evidence of radiation change present. There is no moist or dry desquamation. He is continuing to wear a back brace and his neurologic exam remains unchanged. Patient is tolerating treatments quite well and radiation will continue as scheduled. I advised him to be careful of his dog and not trip over the dog again.
--- NOTE | 2017-01-21 07:40 | RADONC ---
RADIATION ONCOLOGY TREATMENT SUMMARY DATE: 01/20/2017 CHART NUMBER: [id number] DIAGNOSIS: Multiple myeloma. ECOG PERFORMANCE STATUS: 1. TREATMENT SUMMARY: Mr. Salamanca is a very pleasant 66-year-old white male with the diagnosis of multiple myeloma who presented to us for consideration of palliative radiation therapy to his thoracic spine. We treated the patient from his spine from the levels of T4 through L1 for a total dose of 2400 cGy delivered in 8 fractions of 300 cGy each over nine elapsed days from 01/11/2017 through 01/20/2017. The patient's spine was treated on a linear accelerator utilizing an 18 MV photon beam via a single posterior field prescribed to a depth of 8 cm. Mr. Salamanca tolerated his treatments quite well and was able to complete therapy as prescribed without interruption. He reported an improvement in his back pain. I have scheduled the patient to see me again in 1 month for further followup. He will also continue to be followed by his other physicians as well. cc: Zonia Cottrell MD *Timo Weaver MD
== END 2017-02-03 ==
LOC: M ONCR 10:09
PROVIDERS: ATTEND Radiology Radiation Oncology
DX: C90.00 Multiple myeloma not having achieved remission (principal)

== ENCOUNTER → 2017-01-07 | Outpatient (REF) | payer MEDICARE, BC ==
[2017-01-07 14:11] LABS: TOTAL PROTEIN 5.8 GM/DL (6.4-8.2)
[2017-01-08 12:58] LABS: ALBUMIN 3.39 GM/DL (3.29-5.55); ALBUMIN % 58.4 % (55.8-66.1); GAMMA GLOBULIN % 8.8 % (11.1-18.8)
[2017-01-09 00:07] LABS: FREE LAMBDA LIGHT CHAINS SERUM 23.63 mg/L (5.71-26.30); KAPPA/LAMBDA RATIO SERUM 68.13 (0.26-1.65)
== END ==
LOC: M LAB REF 13:17
PROVIDERS: ATTEND Internal Medicine Medical Oncology
DX: C90.00 Multiple myeloma not having achieved remission (principal)

== ENCOUNTER → 2017-01-07 | Outpatient (CLI) | payer MEDICARE, BC ==
--- NOTE | 2017-01-07 12:13 | REP ---
LEFT FEMUR, FIVE VIEWS: HISTORY: Thigh pain. The patient is status post ORIF of a femur fracture. An intramedullary nika and compression screw are present. There is narrowing of the hip and knee joint spaces. IMPRESSION: There is no acute fracture or dislocation. Signed by Jonny Mane MD 01/07/2017 12:15 P
--- NOTE | 2017-01-07 13:08 | REP ---
Right upper extremity duplex Doppler venous ultrasound. Real time compression and duplex Doppler evaluation of the right upper extremity deep venous system is performed. The right subclavian, jugular, axillary, brachial, basilic and cephalic veins are fully compressible where accessible with transducer pressure, and demonstrate no intraluminal thrombus and normal venous waveforms. There is no evidence of deep venous thrombosis. Impression: No evidence of deep venous thrombosis of the right upper extremity deep vein system. Signed by Srinivasan John MD 01/07/2017 12:59 P
== END ==
LOC: M RAD 11:04
PROVIDERS: ATTEND Internal Medicine Medical Oncology
DX: M79.621 Pain in right upper arm (principal); M79.652 Pain in left thigh; C90.00 Multiple myeloma not having achieved remission; N18.3 Chronic kidney disease, stage 3 (moderate)

== ENCOUNTER → 2017-01-07 | Outpatient (REF) | payer MEDICARE, BC ==
[2017-01-07 15:25] LABS: ALBUMIN 3.2 GM/DL (3.2-5.2); CALCIUM LEVEL 8.6 MG/DL (8.8-10.2); CREATININE FOR GFR 1.64 MG/DL (0.70-1.30); GLOMERULAR FILTRATION RATE 45.3 (>49); PHOSPHORUS LEVEL 4.8 MG/DL (2.5-4.9); POTASSIUM SERUM 4.2 MEQ/L (3.5-5.1)
== END ==
LOC: M LAB REF 14:45
PROVIDERS: ATTEND Internal Medicine Nephrology
DX: N18.3 Chronic kidney disease, stage 3 (moderate) (principal)

== ENCOUNTER → 2017-02-18 | Outpatient (REF) | payer MEDICARE, BC ==
[2017-02-18 14:05] LABS: IMMUNOGLOBULIN A 45.8 MG/DL (70-400); IMMUNOGLOBULIN G 519 MG/DL (681-1648); TOTAL PROTEIN 5.7 GM/DL (6.4-8.2)
[2017-02-20 00:06] LABS: BETA 2 MICROGLOBULIN 3.2 mg/L (0.6-2.4); FREE KAPPA LIGHT CHAINS SERUM 861.7 mg/L (3.3-19.4); FREE LAMBDA LIGHT CHAINS SERUM 22.2 mg/L (5.7-26.3); KAPPA/LAMBDA RATIO SERUM 38.82 (0.26-1.65)
[2017-02-23 11:28] LABS: ALBUMIN 3.47 GM/DL (3.29-5.55); ALBUMIN % 60.9 % (55.8-66.1); GAMMA GLOBULIN % 8.8 % (11.1-18.8)
== END ==
LOC: M LAB REF 12:18
PROVIDERS: ATTEND Internal Medicine Medical Oncology
DX: C90.00 Multiple myeloma not having achieved remission (principal)

== ENCOUNTER → 2017-02-24 | Outpatient (CLI) | payer MEDICARE, BC ==
--- NOTE | 2017-02-25 07:56 | RADONC ---
RADIATION ONCOLOGY FOLLOWUP NOTE: DATE: 02/24/2017 CHART NUMBER: [id number]. DIAGNOSIS: Multiple myeloma. ECOG PERFORMANCE STATUS: Zero. FOLLOWUP NOTE: Mr. Salamanca is a very pleasant, 66-year-old white male with the diagnosis of multiple myeloma who is presenting to us today for routine followup visit 1 month post completion of palliative radiation therapy to his spine. The patient presents today reporting that he is doing quite well. He notes that his back pain has improved significantly since completion of treatment. He has no other new areas of discomfort. REVIEW OF SYSTEMS: The patient's review of systems is positive for some minimal residual mid back pain but is otherwise noncontributory. Denies nausea, vomiting, fevers, chills, night sweats, diplopia, headaches, anxiety or depression, anorexia, weight loss, visual disturbances, chest pain, urinary or bowel difficulties, bone pain, or neurological problems. PHYSICAL EXAMINATION: The patient is a well-developed, well-nourished white male in no acute distress. HEENT exam is normocephalic, atraumatic. Extraocular movements are intact. There is no palpable cervical, supraclavicular, infraclavicular, axillary, or inguinal lymphadenopathy present. Lungs are clear to auscultation and percussion. Heart has a regular rate and rhythm. Abdomen is benign with no hepatosplenomegaly, masses, or tenderness. Rectal examination reveals a normal anal sphincter tone. His prostate is smooth with no evidence of nodularity. Skeletal examination reveals no tenderness to pressure or percussion of the bony skeleton. Extremities reveal no clubbing, cyanosis, or edema. Neurologic exam is grossly intact, as is the remainder of the physical examination. ASSESSMENT: The patient is clinically doing quite well at this time and is continuing with his systemic therapy. In light of the fact that he is being followed and managed so closely by his medical oncologist, I am discharging him from our followup except on an as needed basis.
== END ==
LOC: M ONCR 14:43
PROVIDERS: ATTEND Radiology Radiation Oncology
DX: C90.00 Multiple myeloma not having achieved remission (principal)

== ENCOUNTER → 2017-03-11 | Outpatient (REF) | payer MEDICARE, BC ==
[~2017-03-11] MED LIST changes: -COLA100C3 PO; +COLA100C5 PO; -LIDO5DIS36 TD; +LIDO5DIS41 TD; -METF1000 PO; +METF10004 PO
[2017-03-11 13:42] LABS: IMMUNOGLOBULIN G 528 MG/DL (681-1648); IMMUNOGLOBULIN M 21.2 MG/DL (40-230); TOTAL PROTEIN 5.9 GM/DL (6.4-8.2)
[2017-03-13 00:08] LABS: FREE KAPPA LIGHT CHAINS SERUM 542.6 mg/L (3.3-19.4); FREE LAMBDA LIGHT CHAINS SERUM 20.1 mg/L (5.7-26.3)
[2017-03-15 13:31] LABS: ALBUMIN 3.66 GM/DL (3.29-5.55); GAMMA GLOBULIN % 8.4 % (11.1-18.8)
== END ==
LOC: M LAB REF 12:19
PROVIDERS: ATTEND Internal Medicine Medical Oncology
DX: C90.00 Multiple myeloma not having achieved remission (principal)

== ENCOUNTER → 2017-04-01 | Outpatient (REF) | payer MEDICARE, BC ==
[2017-04-01 14:13] LABS: PERCENT SATURATION 19.8 % (19.7-37.4)
[2017-04-03 00:08] LABS: FREE KAPPA LIGHT CHAINS SERUM 507.9 mg/L (3.3-19.4); FREE LAMBDA LIGHT CHAINS SERUM 20.7 mg/L (5.7-26.3); KAPPA/LAMBDA RATIO SERUM 24.54 (0.26-1.65)
== END ==
LOC: M LAB REF 12:31
PROVIDERS: ATTEND Internal Medicine Medical Oncology
DX: C90.00 Multiple myeloma not having achieved remission (principal)

== ENCOUNTER → 2017-04-22 | Outpatient (REF) | payer MEDICARE, BC ==
[2017-04-22 14:46] LABS: PERCENT SATURATION 19.2 % (19.7-50.0)
[2017-04-24 00:06] LABS: FREE LAMBDA LIGHT CHAINS SERUM 19.4 mg/L (5.7-26.3); KAPPA/LAMBDA RATIO SERUM 25.88 (0.26-1.65)
== END ==
LOC: M LAB REF 14:02
PROVIDERS: ATTEND Internal Medicine Medical Oncology
DX: C90.00 Multiple myeloma not having achieved remission (principal)

== ENCOUNTER → 2017-05-20 | Outpatient (REF) | payer MEDICARE, BC ==
[2017-05-22 00:08] LABS: FREE KAPPA LIGHT CHAINS SERUM 384.3 mg/L (3.3-19.4); FREE LAMBDA LIGHT CHAINS SERUM 18.1 mg/L (5.7-26.3); KAPPA/LAMBDA RATIO SERUM 21.23 (0.26-1.65)
== END ==
LOC: M LAB REF 12:10
PROVIDERS: ATTEND Internal Medicine Medical Oncology
DX: C90.00 Multiple myeloma not having achieved remission (principal)

== ENCOUNTER → 2017-06-17 | Outpatient (REF) | payer MEDICARE, BC ==
[2017-06-19 00:07] LABS: FREE KAPPA LIGHT CHAINS SERUM 464.9 mg/L (3.3-19.4); FREE LAMBDA LIGHT CHAINS SERUM 20.2 mg/L (5.7-26.3); KAPPA/LAMBDA RATIO SERUM 23.01 (0.26-1.65)
== END ==
LOC: M LAB REF 12:49
PROVIDERS: ATTEND Internal Medicine Medical Oncology
DX: C90.00 Multiple myeloma not having achieved remission (principal)

== ENCOUNTER → 2017-07-15 | Outpatient (REF) | payer MEDICARE, BC ==
[2017-07-18 00:06] LABS: FREE KAPPA LIGHT CHAINS SERUM 290.9 mg/L (3.3-19.4); FREE LAMBDA LIGHT CHAINS SERUM 20.6 mg/L (5.7-26.3); KAPPA/LAMBDA RATIO SERUM 14.12 (0.26-1.65)
== END ==
LOC: M LAB REF 16:32
PROVIDERS: ATTEND Internal Medicine Medical Oncology
DX: C90.00 Multiple myeloma not having achieved remission (principal)

== ENCOUNTER → 2017-07-22 | Outpatient (REF) | payer MEDICARE, BC | LOC: M LAB REF 14:01 | PROVIDERS: ATTEND Internal Medicine Medical Oncology | DX: C90.00 Multiple myeloma not having achieved remission (principal); Z79.899 Other long term (current) drug therapy ==

== ENCOUNTER → 2017-07-28 | Outpatient (REF) | payer MEDICARE, BC | LOC: M LAB REF 10:54 | PROVIDERS: ATTEND Internal Medicine Medical Oncology | DX: C90.00 Multiple myeloma not having achieved remission (principal) ==

== ENCOUNTER → 2017-08-12 | Outpatient (REF) | payer MEDICARE, BC ==
[2017-08-12 14:10] LABS: TOTAL PROTEIN 6.2 GM/DL (6.4-8.2)
[2017-08-15 00:06] LABS: FREE KAPPA LIGHT CHAINS SERUM 270.7 mg/L (3.3-19.4); FREE LAMBDA LIGHT CHAINS SERUM 26.4 mg/L (5.7-26.3); KAPPA/LAMBDA RATIO SERUM 10.25 (0.26-1.65)
[2017-08-17 10:20] LABS: ALBUMIN 3.73 GM/DL (3.29-5.55); ALBUMIN % 60.2 % (55.8-66.1)
[2017-08-17 10:21] LABS: GAMMA GLOBULIN % 9.4 % (11.1-18.8)
== END ==
LOC: M LAB REF 13:46
PROVIDERS: ATTEND Internal Medicine Medical Oncology
DX: D50.9 Iron deficiency anemia, unspecified (principal); C90.00 Multiple myeloma not having achieved remission

== ENCOUNTER → 2017-11-23 | Outpatient (REF) | payer MEDICARE, BC ==
[2017-11-23 19:53] LABS: IMMUNOGLOBULIN G 679 MG/DL (681-1648); IMMUNOGLOBULIN M 27.6 MG/DL (40-230); TOTAL PROTEIN 6.5 GM/DL (6.4-8.2)
[2017-11-25 11:23] LABS: ALBUMIN % 59.9 % (55.8-66.1); ALPHA-1-GLOBULIN % 5.2 % (2.9-4.9); ALPHA-2-GLOBULINS % 13.2 % (7.1-11.8); BETA-1-GLOBULINS % 6.5 % (4.7-7.2); BETA-2-GLOBULINS % 4.5 % (3.2-6.5); GAMMA GLOBULIN % 10.7 % (11.1-18.8)
[2017-11-25 11:24] LABS: ALBUMIN 3.89 GM/DL (3.29-5.55); ALPHA-1-GLOBULINS 0.34 GM/DL (0.17-0.41); ALPHA-2-GLOBULINS 0.86 GM/DL (0.42-0.99); BETA-1-GLOBULINS 0.42 GM/DL (0.28-0.60); BETA-2-GLOBULINS 0.29 GM/DL (0.19-0.55)
[2017-11-26 00:07] LABS: FREE KAPPA LIGHT CHAINS SERUM 329.2 mg/L (3.3-19.4); FREE LAMBDA LIGHT CHAINS SERUM 29.6 mg/L (5.7-26.3); KAPPA/LAMBDA RATIO SERUM 11.12 (0.26-1.65)
== END ==
LOC: M LAB REF 17:36
DX: C90.00 Multiple myeloma not having achieved remission (principal)
CPT/HCPCS: 84165

== ENCOUNTER → 2017-12-21 | Outpatient (REF) | payer MEDICARE, BC | LOC: M LAB REF 13:52 | DX: C90.00 Multiple myeloma not having achieved remission (principal); D50.9 Iron deficiency anemia, unspecified | CPT/HCPCS: 84165 ==

== ENCOUNTER → 2017-12-21 | Outpatient (REF) | payer MEDICARE, BC ==
[2017-12-21 14:10] LABS: IMMUNOGLOBULIN G 660 MG/DL (681-1648); IMMUNOGLOBULIN M 23.5 MG/DL (40-230); TOTAL PROTEIN 6.6 GM/DL (6.4-8.2)
[2017-12-22 13:03] LABS: ALBUMIN 3.95 GM/DL (3.29-5.55); ALBUMIN % 59.9 % (55.8-66.1); ALPHA-1-GLOBULIN % 5.2 % (2.9-4.9); ALPHA-1-GLOBULINS 0.34 GM/DL (0.17-0.41); ALPHA-2-GLOBULINS 0.87 GM/DL (0.42-0.99); ALPHA-2-GLOBULINS % 13.2 % (7.1-11.8); BETA-1-GLOBULINS 0.42 GM/DL (0.28-0.60); BETA-1-GLOBULINS % 6.3 % (4.7-7.2); BETA-2-GLOBULINS % 4.6 % (3.2-6.5); GAMMA GLOBULIN % 10.8 % (11.1-18.8); GAMMA GLOBULINS 0.71 GM/DL (0.65-1.58)
[2017-12-23 00:08] LABS: FREE KAPPA LIGHT CHAINS SERUM 278.9 mg/L (3.3-19.4); FREE LAMBDA LIGHT CHAINS SERUM 35.6 mg/L (5.7-26.3); KAPPA/LAMBDA RATIO SERUM 7.83 (0.26-1.65)
== END ==
LOC: M LAB REF 13:07
DX: C90.00 Multiple myeloma not having achieved remission (principal); D50.9 Iron deficiency anemia, unspecified

== ENCOUNTER → 2018-01-05 | Outpatient (REF) | payer MEDICARE, BC ==
[2018-01-05 15:24] LABS: PROSTATIC SPECIFIC AG MONITOR 0.77 NG/ML (< 4.0)
[2018-01-08 00:07] LABS: HSV TYPE I IgG SPECIFIC <0.91 index (0.00-0.90); HSV TYPE II IgG SPECIFIC <0.91 index (0.00-0.90); HTLV 1/2 ANTIBODIES QUAL Negative (Negative)
== END ==
LOC: M LAB REF 14:52
DX: C90.01 Multiple myeloma in remission (principal)
CPT/HCPCS: 84153

== ENCOUNTER → 2018-03-21 | Outpatient (REF) | payer MEDICARE, BC ==
[2018-03-21 18:30] LABS: IMMUNOGLOBULIN A 35.6 MG/DL (70-400); IMMUNOGLOBULIN G 581 MG/DL (681-1648); IMMUNOGLOBULIN M 27.6 MG/DL (40-230); TOTAL PROTEIN 6.3 GM/DL (6.4-8.2)
[2018-03-23 12:35] LABS: ALBUMIN 3.96 GM/DL (3.29-5.55); ALBUMIN % 62.9 % (55.8-66.1); ALPHA-1-GLOBULIN % 4.9 % (2.9-4.9); ALPHA-1-GLOBULINS 0.31 GM/DL (0.17-0.41); ALPHA-2-GLOBULINS 0.74 GM/DL (0.42-0.99); ALPHA-2-GLOBULINS % 11.8 % (7.1-11.8); BETA-1-GLOBULINS % 6.4 % (4.7-7.2); BETA-2-GLOBULINS 0.28 GM/DL (0.19-0.55); BETA-2-GLOBULINS % 4.4 % (3.2-6.5); GAMMA GLOBULIN % 9.6 % (11.1-18.8)
[2018-03-24 00:20] LABS: FREE KAPPA LIGHT CHAINS SERUM 32.1 mg/L (3.3-19.4); FREE LAMBDA LIGHT CHAINS SERUM 13.7 mg/L (5.7-26.3); KAPPA/LAMBDA RATIO SERUM 2.34 (0.26-1.65)
== END ==
LOC: M LAB REF 17:43
DX: C90.00 Multiple myeloma not having achieved remission (principal); D50.9 Iron deficiency anemia, unspecified
CPT/HCPCS: 84165

== ENCOUNTER → 2018-06-02 | Outpatient (REF) | payer MEDICARE, BC ==
[2018-06-02 14:19] LABS: IMMUNOGLOBULIN G 976 MG/DL (681-1648); IMMUNOGLOBULIN M 44 MG/DL (40-230); TOTAL PROTEIN 6.7 GM/DL (6.4-8.2)
[2018-06-04 00:07] LABS: FREE KAPPA LIGHT CHAINS SERUM 65.4 mg/L (3.3-19.4); KAPPA/LAMBDA RATIO SERUM 1.52 (0.26-1.65)
[2018-06-06 13:26] LABS: ALBUMIN 3.89 GM/DL (3.29-5.55); ALPHA-1-GLOBULIN % 4.7 % (2.9-4.9); ALPHA-1-GLOBULINS 0.31 GM/DL (0.17-0.41); ALPHA-2-GLOBULINS 0.78 GM/DL (0.42-0.99); ALPHA-2-GLOBULINS % 11.6 % (7.1-11.8); BETA-1-GLOBULINS 0.42 GM/DL (0.28-0.60); BETA-1-GLOBULINS % 6.3 % (4.7-7.2); BETA-2-GLOBULINS 0.34 GM/DL (0.19-0.55); BETA-2-GLOBULINS % 5.1 % (3.2-6.5); GAMMA GLOBULIN % 14.3 % (11.1-18.8); GAMMA GLOBULINS 0.96 GM/DL (0.65-1.58)
== END ==
LOC: M LAB REF 13:45
DX: C90.00 Multiple myeloma not having achieved remission (principal); D50.9 Iron deficiency anemia, unspecified; C79.51 Secondary malignant neoplasm of bone
CPT/HCPCS: 84165

== ENCOUNTER → 2018-06-08 | Outpatient (CLI) | payer MEDICARE, BC ==
[2018-06-08 14:27] LABS: BASO # 0.1 10^3/uL (0.0-0.2); BASO % 2.2 % (0.0-1.0); EOS # 0.1 10^3/uL (0.0-0.50); EOS % 1.9 % (0.0-3.0); HEMATOCRIT 37.4 % (42.0-52.0); HEMOGLOBIN 12.6 g/dl (13.5-17.5); IMMATURE GRANULOCYTE % 0.3 % (0-3.0); LYMPH # 1.4 10^3/uL (1.5-4.5); LYMPH % 37.4 % (24.0-44.0); MEAN CORPUSCULAR HEMOGLOBIN 32.5 pg (27.0-33.0); MEAN CORPUSCULAR HGB CONC 33.7 g/dl (32.0-36.5); MEAN CORPUSCULAR VOLUME 96.4 fl (80.0-96.0); MONO # 0.5 10^3/uL (0.0-0.8); MONO % 12.4 % (0.0-5.0); NEUTROPHILS # 1.7 10^3/uL (1.8-7.7); NEUTROPHILS % 45.8 % (36.0-66.0); RED BLOOD COUNT 3.88 10^6/uL (4.30-6.10); WHITE BLOOD COUNT 3.7 10^3/uL (4.0-10.0)
[2018-06-08 14:43] LABS: PLATELET COUNT, AUTOMATED 46 10^3/uL (150-450)
[2018-06-08 14:44] LABS: IMMATURE PLATELET FRACTION % 3.7 % (0.0-10.9)
== END ==
LOC: M RAD 14:05
DX: C90.00 Multiple myeloma not having achieved remission (principal); C79.51 Secondary malignant neoplasm of bone
CPT/HCPCS: 85049

== ENCOUNTER → 2019-01-16 | Outpatient (REF) | payer MEDICARE, BC ==
[~2019-01-16] MED LIST changes: -AMLO10TA2 PO; +AMLO10TA5 PO; +AMLO2.5T3 OR; -ASPI1TAB PO; +ASPI81TA26 PO; +BUSP10TA PO; +CALC600T57 PO; +FISH7.5C PO; -GABA600T PO; +GABA600T4 PO; -ISOS120T4 PO; +ISOS120T7 PO; +MELO15TA28 PO; -MELO15TA4 PO; +VICO7.5T11 PO
[2019-01-16 11:07] LABS: TOTAL PROTEIN,RANDOM URINE < 5.0 MG/DL (0.0-12.0); URINE TOTAL PROTEIN < 5.0 MG/DL (0-12)
[2019-01-19 11:39] LABS: UPEP INTERPRETATION M-SPIKE IN BETA; URINE VOLUME 2050 ML
[2019-01-19 11:54] LABS: IMMUNOTYPE URINE KAPPA ABNORMAL (NORMAL)
== END ==
LOC: M LAB REF 10:37
PROVIDERS: ATTEND Internal Medicine Hematology & Oncology
DX: C90.00 Multiple myeloma not having achieved remission (principal); Z79.899 Other long term (current) drug therapy

== ENCOUNTER → 2019-04-21 | Outpatient (CLI) | payer MEDICARE, BC ==
[~2019-04-21] MED LIST changes: +ACYC1CAP20 PO; +ASPI81TA85 PO; +CYAN100049 PO; +PROC10TA4 PO; +PROHANCE 279.3MG/ML 15ML VIAL (A9576) As Ordered ONE; +PROHANCE 279.3MG/ML 5ML VIAL (A9576) As Ordered ONE; -VITA10002 PO
--- NOTE | 2019-04-21 11:04 | REP ---
MRI OF THE LUMBAR SPINE WITHOUT AND WITH CONTRAST: INDICATION: History of multiple myeloma. Pain. COMPARISON: CT of the abdomen and pelvis of 11/28/2016. TECHNIQUE: MRI of the lumbar spine was performed without contrast utilizing sagittal T1, STIR and T2-weighted imaging as well as axial T1- and T2 imaging. Following the uneventful intravenous administration of 18 mL ProHance axial and sagittal T1-weighted imaging was performed. FINDINGS: There is 2 mm retrolisthesis of L1 on L2. There is a mild dextro-curvature of the lumbar spine. There is compression deformity of the L1 vertebral body which is new since the 11/28/2016 examination with approximately 50% loss of height. There is no retropulsion. There is Schmorl's node deformity along the inferior endplate of T12. Remaining vertebral bodies heights are maintained. There are multilevel degenerative changes including multilevel facet arthropathy, worse L1-L2, L4-L5, and L5-S1 with surrounding marrow edema. 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 There is marrow edema along the L1-L2 endplates. There is marrow edema within the left lateral aspect of the L1 vertebral body inferiorly as well as edematous endplate changes at L3-L4, L4-L5, L5-S1. This is thought to be degenerative. There is loss of disc height at L2-L3, L3-L4 and L4-L5. There is vacuum disc phenomenon L4-L5 and L5-S1. The visualized spinal cord is unremarkable. The conus medullaris terminates at the level of L1. There is prominence of the epidural fat posteriorly at L1 and below. Level Specific Observations: T12-L1: Diffuse disc bulge. Bilateral neural foraminal narrowing. L1-L2: Diffuse disc bulge, eccentric to the left. Effacement of the ventral thecal sac. Ligamentum flavum thickening. Prominence of the posterior epidural fat. Severe spinal canal stenosis. Severe left and moderate right neural foraminal narrowing. L2-L3: Diffuse disc bulge, eccentric to the left. Prominence of the posterior epidural fat. Moderate spinal canal stenosis. Severe left and mild right neural foraminal narrowing. L3-L4: Diffuse disc bulge. Ligamentum flavum thickening. Prominence of the posterior epidural fat. Moderate bilateral neural foraminal narrowing. L4-L5: Diffuse disc bulge, eccentric to the right. Superimposed central disc protrusion. Prominence of the posterior epidural fat. Severe right and moderate left neural foraminal narrowing. L5-L1: Diffuse disc bulge. Bilateral facet arthropathy. Moderate bilateral neural foraminal narrowing. There is diffuse heterogeneous signal throughout the bone marrow. IMPRESSION: 1. L1 compression deformity with approximately 50% loss of height, new since 11/28/2016. 2. Multilevel lumbar spondylosis, worse at L1-L2 and L2-L3 with severe and moderate spinal canal stenosis, respectively. 3. Multilevel neural foraminal narrowing, severe at L1-L2, L2-L3 and L4-L5. 4. Heterogeneous marrow with multilevel endplate degenerative changes. No suspicious focal marrow lesion. Electronically Signed by Benita Choudhury MD 04/21/2019 11:46 A
== END ==
LOC: M RAD 07:05
PROVIDERS: ATTEND Internal Medicine
DX: C90.00 Multiple myeloma not having achieved remission (principal); M51.26 Other intervertebral disc displacement, lumbar region; M51.24 Other intervertebral disc displacement, thoracic region; M47.816 Spondylosis without myelopathy or radiculopathy, lumbar region; M48.061 Spinal stenosis, lumbar region without neurogenic claudication
CPT/HCPCS: 72158; A9576

== ENCOUNTER → 2019-05-04 | Outpatient (CLI) | payer MEDICARE, BC ==
[~2019-05-04] MED LIST changes: +FURO40TA2 PO; +POTA1TAB23 PO; -PROHANCE 279.3MG/ML 15ML VIAL (A9576) As Ordered ONE; -PROHANCE 279.3MG/ML 5ML VIAL (A9576) As Ordered ONE; -VICO7.5T11 PO; +VICO7.5T12 PO; +XGEVINJ SC
--- NOTE | 2019-05-06 06:48 | RADONC ---
RADIATION ONCOLOGY CONSULTATION NOTE DATE: 05/04/2019 Chart #: [id number] DIAGNOSIS: Multiple myeloma. ECOG PERFORMANCE STATUS: 0. CONSULTATION NOTE: Mr. Salamanca is a very pleasant 68-year-old white male with the diagnosis of multiple myeloma who is known to our department and was last seen on 02/24/2017. We had treated the patient to his spine for the levels of T4 through L1 for a total dose of 2400 cGy in eight fractions of 300 cGy each from 01/11/2017 through 01/20/2017. The patient's spine was treated on a linear accelerator by a single posterior field utilizing an 18 MV photon beam. Apparently, the patient has been followed by medical oncology since and overall was doing well until more recently when he began having increasing lower back pain. In [place] on 03/14/2019, the patient had a complete bone survey undertaken which revealed multilevel spinal compression deformities. They were most severe in the mid thoracic region. His pain, however, is in the lower spine. The patient was then seen by Dr. Cameron Rico and an MRI of the lumbar spine was undertaken on 04/21/2019. This showed continued L1 compression deformity with approximately 50% loss in height. This was new since previous MRI of 11/28/2016. Previous MRI was done prior to his radiation to the L1 vertebral body. In addition, there was multilevel lumbar spondylosis. This was worse at L1-L2 and L2-L3 with severe moderate spinal canal stenosis respectively. There was multilevel neural foraminal narrowing which was severe at L1-L2, L2-L3 and L4-L5. There was heterogeneous marrow with multilevel end plate degenerative changes. No suspicious focal marrow lesions were seen. This was read by the radiologist Benita Choudhury MD. I personally went over to a second senior radiologist, Dr. Michael Martinez, and reviewed this MRI with him. After careful evaluation, Dr. Martinez confirmed that there appeared to be no focal myeloma lesions to target. He has agreed with Dr. Choudhury that this lower back is filled with significant degenerative changes. PAST MEDICAL HISTORY: The patient's past medical history is positive for arthritis, psychiatric illness, hypertension and diabetes. ALLERGIES: The patient has NO KNOWN DRUG ALLERGIES. SOCIAL HISTORY: The patient does not smoke cigarettes nor abuse alcohol. FAMILY HISTORY: The patient's family history is positive for a father with some type of cancer and a paternal uncle with prostate cancer. There is no family history of myeloma. REVIEW OF SYSTEMS: The patient's review of systems is positive for some anxiety as well as some low back pain. He reports some decreased energy. It is otherwise noncontributory. Denies nausea, vomiting, fevers, chills, night sweats, diplopia, headaches, anxiety or depression, anorexia, weight loss, visual disturbances, chest pain, urinary or bowel difficulties, bone pain, or neurological problems.. PHYSICAL EXAMINATION: The patient is a well-developed, well-nourished male in no acute distress. HEENT exam is normocephalic, atraumatic. Extraocular movements are intact. There is no palpable cervical, supraclavicular, infraclavicular, axillary, or inguinal lymphadenopathy present. Lungs are clear to auscultation and percussion. Heart has a regular rate and rhythm. Abdomen is benign with no hepatosplenomegaly, masses, or tenderness. Skeletal examination reveals no tenderness to pressure or percussion of the bony skeleton. Extremities reveal no clubbing, cyanosis, or edema. Neurologic exam is grossly intact, as is the remainder of the physical examination. ASSESSMENT: In light of the negative findings on his MRI, I have not scheduled him for initiation of any treatment. The L1 vertebral body had been involved with myeloma and I am sure his compression fracture has added to his back pain. Neither radiologist has found any evidence of myeloma in that vertebral body now 2 years following radiation to the area. In light of the fact that this area has already been treated and we can only safely deliver radiation on one more occasion, I would prefer to reserve that treatment until we have documentation of recurrence or progressive disease. Indeed if we treat now and there is no necessity for that treatment, down the road if he needs us we will not be able offer him any further radiation. I have discussed this with him. I will be discussing this case with his oncologist, Dr. Cameron Rico, today as soon as I can reach him. The patient is under the close care of medical oncology and being seen there on a weekly basis. In light of this, I have not set up any followup in our office at this time. We are more than glad to see this patient at anytime should we have any documentation of actual disease that we can aim our radiation beams at. I recommend continuation with his excellent medical oncology care as he appears to be somewhat stable, at least according to his MRI. cc: MD Timo Solis MD
== END ==
LOC: M ONCR 08:35
PROVIDERS: ATTEND Radiology Radiation Oncology
DX: C90.00 Multiple myeloma not having achieved remission (principal)

== ENCOUNTER → 2019-12-01 | Outpatient (CLI) | payer MEDICARE, BC ==
[~2019-12-01] MED LIST changes: +DECA4TAB PO; +HYDR-4514 PO; -OMEP40CA2 PO; +OMEP40CA97 PO; +POMA3CAP PO; +PRED10TA2 PO; -SIMV20TA2 PO; +SIMV20TA22 PO
--- NOTE | 2019-12-01 18:11 | REP ---
MRI brain without and with IV gadolinium: History: Multiple myeloma. Evaluate for metastasis. Gait disturbance. Technique: Axial and sagittal imaging planes are utilized for T1 and T2-weighted scans. Sequences include spin-echo, fast spin echo, FLAIR, and diffusion weighted sequences. Gadolinium enhancement dose is 19 mL of intravenous ProHance. MRI findings: Incidental note is made of atlanto-occipital assimilation . This is a transitional vertebral anomaly usually asymptomatic. Craniocervical junction is otherwise unremarkable. There is no MR evidence of significant paranasal sinus disease. No bony destructive lesion or calvarial mass lesion is observed. No intraorbital lesion is seen. Diffusion weighted scans show no evidence of restricted diffusion. There is no evidence of intracranial hemorrhage. No mass lesion is observed. There are minimal small vessel changes in the periventricular white matter. No midline shift or extra-axial fluid collection is appreciated. There is a tiny lacunar infarct in the periventricular white matter of the left frontal lobe. Postcontrast images show enhancement in normal vasculature. No abnormal contrast enhancement is appreciated. Impression: 1. Incidental note is made of atlanto-occipital assimilation as a normal variant. 2. Minimal small vessel changes and one tiny old lacunar infarct in the left frontal lobe. 3. There is no evidence to suggest intracranial metastasis. Electronically Signed by Rajesh Martinez MD 12/01/2019 08:47 P
== END ==
LOC: M RAD 14:14
PROVIDERS: ATTEND Internal Medicine Hematology
DX: D50.9 Iron deficiency anemia, unspecified (principal); C90.00 Multiple myeloma not having achieved remission; R26.9 Unspecified abnormalities of gait and mobility; Z86.73 Personal history of transient ischemic attack (TIA), and cerebral infarction without residual deficits; I67.82 Cerebral ischemia

== ENCOUNTER → 2020-09-16 | Outpatient (CLI) | payer MEDICARE, BC ==
[~2020-09-16] MED LIST changes: -AMLO10TA5 PO; +AMLO1TAB25 PO; +AMOX875T2 PO; +ASPI81CH33 PO; -ASPI81TA85 PO; +ASPI81TA86 PO; +ATEN25TA PO; +B-COTAB10 PO; +BUSP5TA PO; +CELE40TA PO; +CLON0.5T2 PO; +DEPA250T32 PO; +DIVA250T67 PO; -ENAL20TA PO; +ENAL20TA11 PO; +ESTETAB4 PO; +FLUTISP INH; +FURO20TA2 PO; +HYDR-3716 PO; +IRON325T2 PO; +MIRA3350 PO; +NEUR600T PO; +OMEP-221 PO; +ONDA8TAB10 PO; +POMA2CAP PO; +POTA10CA32 PO; +PROL60SO SC; +SENN1TAB96 PO; +ZYRTTAB8 PO; +[UNRECOGNIZED DRUG - CODE] IV
--- NOTE | 2020-09-17 23:54 | ECWPNPC ---
PATIENT NAME: DARYL YOUSSEF : 1950 GENDER: MALE VISIT DATE: 09/16/2020 DISCHARGE DATE: 09/16/20 1434 VISIT LOCKED DATE TIME: PHYSICIAN: LEOBARDO STEIN RESOURCE: LEOBARDO STEIN REASON FOR APPOINTMENT 1. BACK PAIN HISTORY OF PRESENT ILLNESS GENERAL: DARYL IS A 69-YEAR-OLD GENTLEMAN REFERRED TO US BY [facility] TO EVALUATE PERSISTENT LOW PAIN. HISTORY OF MULTIPLE MYELOMA THAT WAS DIAGNOSED 3 YEARS AGO. CURRENTLY ON CHEMOTHERAPY. COMPLAINING OF LOW BACK PAIN SINCE DIAGNOSIS RIGHT GREATER THAN LEFT. CURRENTLY USING HYDROCODONE 7.5/325 ONE EVERY 6 HOURS NEEDED FOR PAIN. HE HAS BEEN ON THIS FOR 2 YEARS. FINDS CURRENT CHRONIC PAIN MEDICATION HELPFUL AT REDUCING PAIN AND KEEPING HIM FUNCTIONAL. DENIES ADVERSE SIDE EFFECTS. CURRENTLY ON STOOL SOFTENERS AND AND HAS NORMAL BOWEL MOVEMENTS. REPORTING NORMAL URINATION. DENIES SADDLE PARESTHESIAS. -. FALL RISK SCREENING: SCREENING :ONE FALL WITHOUT INJURY IN THE PAST YEAR PAIN SCREENING: PATIENT HAS A COMPLAINT OF ACUTE OR CHRONIC PAIN :YES LOCATION OF PAIN:LOW BACK INTENSITY OF PAIN (SCALE OF 1 TO 10):4 WHAT DOES YOUR PAIN FEEL LIKE:ACHING DURATION:CONTINOUS, CONSTANT, ALL DAY PAIN IS INCREASED BY:PROLONGED STANDING, OTHERS STANDING, WALKING TOO LONG PAIN IS DECREASED BY:USE OF PAIN MEDICATIONS TREATMENT/MEDICATIONS USED TO MANAGE PAIN:OPIOIDS LEVEL OF RELIEF FROM PAIN TREATMENTS IN THE PAST:50% PAIN HAS INTERFERED WITH THE FOLLOWING:BATHING/DRESSING, WALKING ABILITY NURSING NOTE: -. PAIN CENTER INTAKE QUESTIONS: DO YOU HAVE A HISTORY OF MRSA? :YES DO YOU TAKE A BLOOD THINNERS? :NO DO YOU HAVE ANY BLEEDING DISORDERS? :NO ANY NEW NUMBNESS OR WEAKNESS IN YOUR LEGS OR ARMS? :NO ANY PACEMAKER,DEFIBRILLATOR, OR DORSAL COLUMN STIMULATOR? :NO DO YOU HAVE ANY RASHES OR OPEN SORES? :NO ARE YOU ALLERGIC TO IV DYE? :NO ARE YOU DIABETIC? :NO ANY NEW PROBLEMS WITH YOUR MEDICATIONS? :NO HAVE YOU RECEIVED A VACCINE IN THE PAST 30 DAYS? :NO DO YOU PLAN TO RECEIVE A VACCINE IN THE NEXT 21 DAYS? :NO DO YOU NEED ANY PRESCRIPTION? :NO DO YOU TAKE ANY IMMUNOSUPPRESSIVE MEDICATIONS? :NO IS THERE A CHANCE YOU COULD BE ? :NO ARE YOU BREAST FEEDING? :NO CURRENT MEDICATIONS TAKING ACCU-CHEK ESTEE PLUS - STRIP TWICE DIRECTED IN VITRO TAKING AMLODIPINE BESYLATE 10 MG TABLET 1 TABLET ORALLY ONCE A DAY TAKING ASPIRIN 81 MG TABLET CHEWABLE 1 TABLET ORALLY ONCE A DAY TAKING ATENOLOL 50 MG TABLET 1 TABLET ORALLY ONCE A DAY TAKING CELEXA 40 MG TABLET 0.5 TABLET ORALLY ONCE A DAY TAKING CLONAZEPAM 0.25 MG TABLET DISINTEGRATING 1 TABLET ON THE TONGUE AND ALLOW TO DISSOLVE 30 MINUTES BEFORE BEDTIME ORALLY ONCE A DAY TAKING FISH OIL 1000 MG CAPSULE 1 CAPSULE ORALLY ONCE A DAY TAKING SENNA PLUS 8.6-50 MG TABLET 1 TABLET IN THE EVENING NEEDED ORALLY ONCE A DAY TAKING VITAMIN C 500 MG CAPSULE DIRECTED ORALLY TAKING DEXAMETHASONE 4 MG TABLET 1 TABLET ORALLY ONCE A DAY TAKING DOCUSATE SODIUM 100 MG CAPSULE 1 CAPSULE NEEDED ORALLY ONCE A DAY TAKING FERROUS SULFATE 325 (65 FE) MG TABLET 1 TABLET ORALLY ONCE A DAY TAKING FLUTICASONE PROPIONATE 50 MCG/ACT SUSPENSION 1 SPRAY IN EACH NOSTRIL NASALLY ONCE A DAY TAKING GABAPENTIN 600 MG TABLET 1 TABLET ORALLY 3 A DAY TAKING VITAMIN B12 1000 MCG TABLET EXTENDED RELEASE 1 TABLET ORALLY ONCE A DAY TAKING HYDRALAZINE HCL 50 MG TABLET 1 TABLET WITH FOOD ORALLY THREE TIMES A DAY TAKING ISOSORBIDE MONONITRATE ER 120 MG TABLET EXTENDED RELEASE 24 HOUR 1 TABLET IN THE MORNING ORALLY ONCE A DAY TAKING JANUVIA 50 MG TABLET DIRECTED ORALLY TAKING MIRALAX 17 GM/SCOOP POWDER DIRECTED ORALLY TAKING MORPHINE SULFATE 15 MG TABLET 1 TABLET NEEDED ORALLY EVERY 4 HRS TAKING PROCHLORPERAZINE MALEATE 10 MG TABLET 1 TABLET NEEDED ORALLY THREE TIMES A DAY TAKING SIMVASTATIN 20 MG TABLET 1 TABLET IN THE EVENING ORALLY ONCE A DAY TAKING TYLENOL 325 MG TABLET 1 TABLET NEEDED ORALLY EVERY 4 HRS TAKING VENTOLIN HFA 108 (90 BASE) MCG/ACT AEROSOL SOLUTION 1 PUFF NEEDED INHALATION EVERY 4 HRS TAKING VICODIN TAKING ACETAMINOPHEN 325 MG TABLET 1 TABLET NEEDED ORALLY EVERY 4 HRS TAKING ATENOLOL 25 MG TABLET 1 TABLET ORALLY ONCE A DAY TAKING BUSPIRONE HCL 10 MG TABLET 1 TABLET ORALLY TWICE A DAY TAKING CITALOPRAM HYDROBROMIDE 40 MG TABLET 0.5 TABLET ORALLY ONCE A DAY TAKING FLONASE 150 MCG 2 SPRAY IHS TAKING OMEPRAZOLE 40 MG CAPSULE DELAYED RELEASE 1 CAPSULE 30 MINUTES BEFORE MORNING MEAL ORALLY ONCE A DAY TAKING FUROSEMIDE 1 TAB ORAL TAKING POTASSIUM 1 TAB ORAL IN AM TAKING IRON 325 (65 FE) MG TABLET 1 TABLET ORALLY ONCE A DAY TAKING DENOSUMAB 120 MG/1.7ML SOLUTION 1.7 ML SUBCUTANEOUS TAKING CALCIUM 600 MG TABLET 1 TABLET WITH MEALS ORALLY TWICE A DAY TAKING B COMPLEX 1 TAB ORAL TAKING ELLIE-C 500-550 MG TABLET DIRECTED ORALLY TAKING CLONAZEPAM 0.25 MG TABLET DISINTEGRATING 1 TABLET ON THE TONGUE AND ALLOW TO DISSOLVE 30 MINUTES BEFORE BEDTIME ORALLY ONCE A DAY TAKING POMALYST 2 MG CAPSULE 1 CAPSULE ORALLY ONCE A DAY TAKING CARFILZOMIB 10 MG SOLUTION RECONSTITUTED DIRECTED INTRAVENOUS 2 WEEKS TAKING DECADRON 6 MG TABLET DIRECTED ORALLY 20 MG ONCE A WEEK TAKING DIVALPROEX SODIUM ER 500 MG TABLET EXTENDED RELEASE 24 HOUR 1 TABLET ORALLY ONCE A DAY NOT-TAKING BUSPIRONE HCL 15 MG TABLET 1 TABLET ORALLY TWICE A DAY NOT-TAKING ACYCLOVIR 400 MG TABLET 1 TABLET ORALLY TWICE A DAY MEDICATION LIST REVIEWED AND RECONCILED WITH THE PATIENT PAST MEDICAL HISTORY HYPERTENSION DIABETES MELLITUS HYPERLIPIDEMIA GASTROESOPHAGEAL REFLUX DISEASE HEMORRHOIDECTOMY ALLERGIES N.K.D.A. SURGICAL HISTORY NO SURGICAL HISTORY DOCUMENTED. FAMILY HISTORY FATHER: MOTHER: SIBLINGS: SOCIAL HISTORY GENERAL: TOBACCO USE ARE YOU A:NONSMOKER NEVER SMOKE LATEX QUESTIONNAIRE LATEX ALLERGY : HAVE YOU EVER DEVELOPED ANY TYPE OF REACTION AFTER HANDLING LATEX PRODUCTS SUCH RUBBER GLOVES, CONDOMS, DIAPHRAGMS, BALLOONS, SOCKS, OR UNDERWEAR?NO LATEX ALLERGY : HAVE YOU EVER DEVELOPED ANY TYPE OF REACTION DURING OR AFTER DENTAL APPOINTMENT, VAGINAL/RECTAL EXAMINATION, SURGICAL PROCEDURE, OR ANY OTHER EXPOSURE?NO LATEX RISK : HAVE YOU EVER HAD ANY DIFFICULTY BREATHING OR HIVES AFTER EATING OR HANDLING ANY FRUITS, OR VEGETABLES; SUCH KIWI, BANANAS, STONE FRUITS, OR CHESTNUTSNO DATE ASKED : 09/16/2020 RECREATIONAL DRUG USE DRUG USE?NO LEARNING BARRIERS / SPECIAL NEEDS BARRIERS TO LEARNING?NO HEARING IMPAIRED?NO VISION IMPAIRED?YES :CORRECTIVE LENSES COGNITIVELY IMPAIRED?NO READINESS TO LEARN?YES LEARNING PREFERENCES?NO LEARNING CAPABILITIES PRESENT?YES EMOTIONAL BARRIERS?NO SPECIAL DEVICES?YES :WALKER ACUTE CARE SURGEON NEEDED?NO DOMESTIC VIOLENCE STATUS: DO YOU FEEL SAFE IN YOUR ENVIRONMENT?YES PAIN CLINIC PFS, CLERGY, PUBLIC HEALTH REFERRALS HAS THE PATIENT BEEN EDUCATED REGARDING HIS/HER PLAN OF CARE?YES HAS THE PATIENT BEEN EDUCATED REGARDING PAIN, THE RISK FOR PAIN, THE IMPORTANCE OF EFFECTIVE PAIN MANAGEMENT, AND THE PAIN ASSESSMENT PROCESS?YES ADVANCE DIRECTIVE ADVANCE DIRECTIVE DISCUSSED WITH PATIENT:YES NEED TO BRING FORM HOSPITALIZATION/MAJOR DIAGNOSTIC PROCEDURE [facility] 06/2020 REVIEW OF SYSTEMS CONSTITUTIONAL: ANY RECENT FEVER NO . RECENT ILLNESS DENIES . CHILLS NO . FEVER DENIES . WEIGHT LOSS DENIES . WEIGHT CHANGE OF UNKNOWN REASONS NO . MUSCULOSKELETAL: ANY UNUSUAL JOINT PAIN OR SWELLING NOT MENTIONED NO . SYSTEMIC LUPUS NO . ANY NEUROMUSCULAR DISORDER NOT MENTIONED NO . LYME DISEASE NO . JOINT PAIN DENIES . JOINT STIFFNESS DENIES . GASTROENTEROLOGY: BOWEL INCONTINENCE DENIES . ANY NEW CHANGE IN BOWEL CONTROL? NO . HISTORY OF LIVER DISORDER NOT MENTIONED NO . HISTORY OF UNUSUAL ABDOMINAL PAIN OR CRAMPING NOT MENTIONED NO . BLOOD IN STOOL DENIES . NO CONSTIPATION. GENITOURINARY: ANY NEW CHANGE IN BLADDER CONTROL? NO . ANY RENAL/KIDNEY CONDITON NOT MENTIONED NO . HEMATOLOGY/LYMPH: DENIES . BLEEDING DISORDER DENIES . NEUROLOGY: HISTORY OF TBI NOT MENTIONED NO . OTHER NEW NUMBNESS OR PAIN PATTERNS NOT MENTIONED NO . NEW ONSET DIZZINESS OR NEUROLOGICAL CHANGES NOT MENTIONED NO . HISTORY OF SEVERE HEADACHES NOT MENTIONED NO, DENIES . SEIZURES DENIES . HISTORY OF STROKE OR NEUROLOGICAL DISORDER NOT MENTIONED NO . CARDIOLOGY: HEART SURGERY NO . CONGESTIVE HEART FAILURE/FLUID OVERLOAD NOT MENTIONED NO . HISTORY OF CHEST PAIN,IRREGULAR HEART BEAT NOT MENTIONED NO, DENIES . SHORTNESS OF BREATH DENIES . RESPIRATORY: SHORTNESS OF BREATH ON EXERTION, WHEEZES, UNUSUAL COUGH NOT MENTIONED NO . COUGH DENIES . SHORTNESS OF BREATH DENIES . ENDOCRINOLOGY: THYROID DISEASE DENIES . ADRENAL GLAND OR THYROID DISORDERS NOT MENTIONED NO . DIABETES DENIES . UNUSUAL URINATION, DIZZINESS OR LETHARGY NOT MENTIONED NO . HEENT: CHANGE IN VISION DENIES . LOSS OF HEARING DENIES . TROUBLE SWALLOWING DENIES . PSYCHOLOGY: ANXIETY DENIES . DEPRESSION DENIES . UROLOGY: URINARY INCONTINENCE DENIES . BLOOD IN URINE DENIES . VITAL SIGNS WT 204 LBS, HT 67 IN, BMI 31.95 INDEX, BP 120/82 MM HG, TEMP 98 F, OXYGEN SAT % 99%, SAFE IN ENV? (Y/N) YES, REVIEWED BY: ROMÁN COLLIER. EXAMINATION GENERAL EXAMINATION: HEENT:HEAD:, NORMOCEPHALIC, EYES:, EYES NORMAL, NOSE:, NOSE CLEAR, THROAT: NORMAL. LUNGS:LUNG SOUNDS ARE CLEAR. HEART:HEART RATE REGULAR. ABDOMEN:SOFT AND NOT TENDER, NON-DISTENDED. MUSCULOSKELETAL:*. LUMBAR:MUSCLE STRENGTH TESTING 5/5 BILATERAL, PALPATION: + FOR PAIN OVER L/S SPINE. + FOR PAIN OVER L/S PARSPINALS. THORACIC SPINE:NEGATIVE FOR PAIN WITH PALPATION OF THORACIC SPINE. NEGATIVE FOR PAIN WITH PALPATION OF THORACIC PARASPINAL. CERVICAL:NEGATIVE FOR PAIN WITH PALPATION OF CERVICAL SPINE. NEGATIVE FOR PAIN WITH PALPATION OF CERVICAL PARASPINALS. NEGATIVE FOR PAIN WITH PALPATION OF TRAPEZIUS BILAT. SKIN:NORMAL, NO RASH. NEUROLOGIC EXAM:ALERT AND ORIENTED X 3, DTRS 1-2+ IN ALL 4 EXTREMITIES, DENIES UPPER EXTREMETIES SENSORY LOSS, DENIES LOWER EXTREMETIES SENSORY LOSS. DIAGNOSTIC: . ASSESSMENTS SPONDYLOSIS OF LUMBOSACRAL REGION WITHOUT MYELOPATHY OR RADICULOPATHY - M47.817 (PRIMARY) CHRONIC PRESCRIPTION OPIATE USE - Z79.891 TREATMENT SPONDYLOSIS OF LUMBOSACRAL REGION WITHOUT MYELOPATHY OR RADICULOPATHY CONTINUE VICODIN NOTES: CURRENTLY UNDER TREATMENT WITH CHEMOTHERAPY FOR MULTIPLE MYELOMA AT [facility] [place]. I'VE AGREED TO TAKE OVER PAIN MEDICATION MANAGEMENT FOR HIM. WE ARE NOT RECOMMENDING INJECTION THERAPY AT THIS POINT DUE TO IMMUNE STATUS/CHEMOTHERAPY. WE WILL CONSIDER INJECTION THERAPY WHEN HE IS MORE MEDICALLY STABLE IN REGARDS TO IMMUNE SUPPRESSION. ADVISED TO CONTINUE HYDROCODONE 7.5/325 ONE EVERY 6-8 HOURS WITH MAXIMUM DAILY DOSE OF 3. HE IS ADVISED TO POTENTIAL RISKS ASSOCIATED WITH TAKING A BENZODIAZEPINE AND NARCOTIC PAIN MEDICATIONS. HE ALSO HAS UNTREATED SLEEP APNEA. HE IS AWARE THESE MEDICATIONS CAN CAUSE AN INCREASED RISK FOR RESPIRATORY SUPPRESSION AND ESPECIALLY WITH UNTREATED SLEEP APNEA. PATIENT WOULD LIKE TO CONTINUE THESE MEDICATIONS DESPITE KNOWING POTENTIAL RISKS. HE WILL NOT TAKE THEM TOGETHER. HE WILL NOT TAKE AT BEDTIME. HE IS ADVISED ON CLINIC POLICIES IN REGARDS TO NARCOTIC USE. ADVISED TO BRING HIS MEDICATIONS TO EVERY APPOINTMENT. HE IS AWARE OF URINE TOXICOLOGY SCREENINGS. FOLLOW-UP IS SCHEDULED IN 3 MONTHS. OTHERS CLINICAL NOTES: ISTOP REGISTRY REVIEWED AND DEMONSTRATES COMPLIANCE. . PROCEDURE CODES FA211 ESTABILISHED PATIENT [facility] FACILITY CHARGE DISPOSITION & COMMUNICATION FOLLOW UP 3 MONTHS (REASON: MEDICATION MANAGEMENT/PILL COUNT IDENTIFICATION/URINE TOXICOLOGY/MULTIPLE MYELOMA) ELECTRONICALLY SIGNED BY DANNY BHATTI ON 09/17/2020 AT 02:45 PM EST DISCLAIMER : THIS IS A VISIT SUMMARY EXTRACTED FROM THE [employer] CHART. IT IS NOT A COPY OF THE [employer] PROGRESS NOTE. VINCENTD
== END ==
LOC: M PAIN 13:00
PROVIDERS: ATTEND Nurse Practitioner Family
DX: M47.817 Spondylosis without myelopathy or radiculopathy, lumbosacral region (principal); I10 Essential (primary) hypertension; E11.9 Type 2 diabetes mellitus without complications; E78.5 Hyperlipidemia, unspecified; K21.9 Gastro-esophageal reflux disease without esophagitis; Z79.82 Long term (current) use of aspirin; Z79.891 Long term (current) use of opiate analgesic; Z79.84 Long term (current) use of oral hypoglycemic drugs; Z79.899 Other long term (current) drug therapy

== ENCOUNTER → 2020-12-18 | Outpatient (CLI) | payer MEDICARE, BC ==
[~2020-12-18] MED LIST changes: +ACYC1TAB PO; +COVI100V IM; +DEXA4TA PO; +MONT10TA10 PO; +PROAAER10 INH
--- NOTE | 2020-12-20 00:16 | ECWPNPC ---
PATIENT NAME: DARYL YOUSSEF : 1950 GENDER: MALE VISIT DATE: 12/18/2020 DISCHARGE DATE: 12/18/20 1123 VISIT LOCKED DATE TIME: PHYSICIAN: LEOBARDO STEIN RESOURCE: LEOBARDO STEIN REASON FOR APPOINTMENT 1. LOW BACK/MEDICATION MANAGEMENT/PILL COUNT IDENTIFICATION/URINE TOXICOLOGY/MULTIPLE MYELOMA HISTORY OF PRESENT ILLNESS DEPRESSION SCREENING: PHQ-9 LITTLE INTEREST OR PLEASURE IN DOING THINGSMORE THAN HALF THE DAYS FEELING DOWN, DEPRESSED, OR HOPELESSSEVERAL DAYS TROUBLE FALLING OR STAYING ASLEEP, OR SLEEPING TOO MUCHNOT AT ALL FEELING TIRED OR HAVING LITTLE ENERGYNOT AT ALL POOR APPETITE OR OVEREATING SEVERAL DAYS FEELING BAD ABOUT YOURSELF-OR THAT YOU ARE A FAILURE OR HAVE LET YOURSELF OR YOUR FAMILY DOWN NOT AT ALL TROUBLE CONCENTRATING ON THINGS, SUCH READING THE NEWSPAPER OR WATCHING TELEVISION NOT AT ALL MOVING OR SPEAKING SO SLOWLY THAT OTHER PEOPLE COULD HAVE NOTICED. OR THE OPPOSITE- BEING SO FIDGETY OR RESTLESS THAT YOU HAVE BEEN MOVING AROUND A LOT MORE THAN USUALNOT AT ALL THOUGHTS THAT YOU WOULD BE BETTER OFF , OR OF HURTING YOURSELF IN SOME WAY?NOT AT ALL TOTAL SCORE:4 INTERPRETATIONMINIMAL DEPRESSION PHQ-2 (2015 EDITION) LITTLE INTEREST OR PLEASURE IN DOING THINGS?MORE THAN HALF THE DAYS FEELING DOWN, DEPRESSED, OR HOPELESS?SEVERAL DAYS TOTAL SCORE3 GENERAL: HERE FOR FOLLOW-UP OF CHRONIC LOW BACK PAIN AND LEFT LEG PAIN. THIS IS A FOLLOW-UP AFTER HIS INITIAL VISIT 2 MONTHS AGO. FINDS MEDICATION HELPFUL AT REDUCING PAIN AND KEEPING HIM FUNCTIONAL. HIS IS IN EXAM ROOM TODAY. DENIES ADVERSE SIDE EFFECTS WITH MEDICATION. REPORTING IMPROVED SLEEP SINCE STARTING MEDICATION. FOLLOWS WITH [facility] ON[facility]OG[facility] FOR MULTIPLE MYELOMA. -. FALL RISK SCREENING: SCREENING : NO FALLS REPORTED IN THE LAST YEAR. PAIN SCREENING: PATIENT HAS A COMPLAINT OF ACUTE OR CHRONIC PAIN :YES LOCATION OF PAIN:LOW BACK INTENSITY OF PAIN (SCALE OF 1 TO 10):4 WHAT DOES YOUR PAIN FEEL LIKE:ACHING, SHOOTING DURATION:MAINLY DURING THE NIGHT PAIN IS INCREASED BY:ACTIVITIES, PROLONGED STANDING PAIN IS DECREASED BY:SITTING NURSING NOTE: -. PAIN CENTER INTAKE QUESTIONS: DO YOU HAVE A HISTORY OF MRSA? :YES DO YOU TAKE A BLOOD THINNERS? :NO DO YOU HAVE ANY BLEEDING DISORDERS? :NO ANY NEW NUMBNESS OR WEAKNESS IN YOUR LEGS OR ARMS? :NO ANY PACEMAKER,DEFIBRILLATOR, OR DORSAL COLUMN STIMULATOR? :NO DO YOU HAVE ANY RASHES OR OPEN SORES? :NO ARE YOU ALLERGIC TO IV DYE? :NO ARE YOU DIABETIC? :YES ANY NEW PROBLEMS WITH YOUR MEDICATIONS? :NO HAVE YOU RECEIVED A VACCINE IN THE PAST 30 DAYS? :YES 2ND COVID 11/06/2020 DO YOU PLAN TO RECEIVE A VACCINE IN THE NEXT 21 DAYS? :NO DO YOU NEED ANY PRESCRIPTION? :NO DO YOU TAKE ANY IMMUNOSUPPRESSIVE MEDICATIONS? :NO IS THERE A CHANCE YOU COULD BE ? :NO ARE YOU BREAST FEEDING? :NO CURRENT MEDICATIONS TAKING VICODIN 7.5MG 3TAB THREE TIMES A DAY TAKING ACCU-CHEK ESTEE PLUS - STRIP TWICE DIRECTED IN VITRO TAKING AMLODIPINE BESYLATE 10 MG TABLET 1 TABLET ORALLY ONCE A DAY TAKING ASPIRIN 81 MG TABLET DELAYED RELEASE 1 TABLET ORALLY ONCE A DAY TAKING ATENOLOL 25 MG TABLET 1 TABLET ORALLY ONCE A DAY TAKING CELEXA 40 MG TABLET 0.5 TABLET ORALLY ONCE A DAY TAKING CLONAZEPAM 0.25 MG TABLET DISINTEGRATING 1 TABLET ON THE TONGUE AND ALLOW TO DISSOLVE 30 MINUTES BEFORE BEDTIME ORALLY ONCE A DAY TAKING FISH OIL 1000 MG CAPSULE 1 CAPSULE ORALLY ONCE A DAY TAKING SENNA PLUS 8.6-50 MG TABLET 1 TABLET IN THE EVENING NEEDED ORALLY ONCE A DAY TAKING VITAMIN C 500 MG CAPSULE DIRECTED ORALLY TAKING DEXAMETHASONE 4 MG TABLET 1 TABLET ORALLY ONCE A DAY TAKING DOCUSATE SODIUM 100 MG CAPSULE 1 CAPSULE NEEDED ORALLY ONCE A DAY TAKING FERROUS SULFATE 325 (65 FE) MG TABLET 1 TABLET ORALLY ONCE A DAY TAKING FLUTICASONE PROPIONATE 50 MCG/ACT SUSPENSION 1 SPRAY IN EACH NOSTRIL NASALLY ONCE A DAY TAKING GABAPENTIN 600 MG TABLET 1 TABLET ORALLY 3 A DAY TAKING VITAMIN B12 1000 MCG TABLET EXTENDED RELEASE 1 TABLET ORALLY ONCE A DAY TAKING HYDRALAZINE HCL 50 MG TABLET 1 TABLET WITH FOOD ORALLY THREE TIMES A DAY TAKING ISOSORBIDE MONONITRATE ER 120 MG TABLET EXTENDED RELEASE 24 HOUR 1 TABLET IN THE MORNING ORALLY ONCE A DAY TAKING JANUVIA 50 MG TABLET DIRECTED ORALLY TAKING MIRALAX 17 GM/SCOOP POWDER DIRECTED ORALLY TAKING PROCHLORPERAZINE MALEATE 10 MG TABLET 1 TABLET NEEDED ORALLY THREE TIMES A DAY TAKING SIMVASTATIN 20 MG TABLET 1 TABLET IN THE EVENING ORALLY ONCE A DAY TAKING TYLENOL 325 MG TABLET 1 TABLET NEEDED ORALLY EVERY 4 HRS TAKING VENTOLIN HFA 108 (90 BASE) MCG/ACT AEROSOL SOLUTION 1 PUFF NEEDED INHALATION EVERY 4 HRS TAKING ATENOLOL 25 MG TABLET 1 TABLET ORALLY ONCE A DAY TAKING BUSPIRONE HCL 10 MG TABLET 1 TABLET ORALLY TWICE A DAY TAKING CITALOPRAM HYDROBROMIDE 40 MG TABLET 0.5 TABLET ORALLY ONCE A DAY TAKING FLONASE 150 MCG 2 SPRAY IHS TAKING OMEPRAZOLE 40 MG CAPSULE DELAYED RELEASE 1 CAPSULE 30 MINUTES BEFORE MORNING MEAL ORALLY ONCE A DAY TAKING FUROSEMIDE 1 TAB ORAL TAKING POTASSIUM 1 TAB ORAL IN AM TAKING IRON 325 (65 FE) MG TABLET 1 TABLET ORALLY ONCE A DAY TAKING DENOSUMAB 120 MG/1.7ML SOLUTION 1.7 ML SUBCUTANEOUS TAKING ELLIE-C 500-550 MG TABLET DIRECTED ORALLY TAKING POMALYST 2 MG CAPSULE 1 CAPSULE ORALLY ONCE A DAY TAKING CARFILZOMIB 10 MG SOLUTION RECONSTITUTED DIRECTED INTRAVENOUS 2 WEEKS TAKING DECADRON 6 MG TABLET DIRECTED ORALLY 20 MG ONCE A WEEK TAKING DIVALPROEX SODIUM ER 500 MG TABLET EXTENDED RELEASE 24 HOUR 1 TABLET ORALLY ONCE A DAY TAKING HYDROCODONE-ACETAMINOPHEN 7.5-325 MG TABLET 1 TABLET NEEDED ORALLY EVERY 6 HRS MDD4 TAKING SINGULAIR 10 MG TABLET 1 TABLET ORALLY ONCE A WEEK NOT-TAKING MORPHINE SULFATE 15 MG TABLET 1 TABLET NEEDED ORALLY EVERY 4 HRS NOT-TAKING ACETAMINOPHEN 325 MG TABLET 1 TABLET NEEDED ORALLY EVERY 4 HRS NOT-TAKING CALCIUM 600 MG TABLET 1 TABLET WITH MEALS ORALLY TWICE A DAY NOT-TAKING B COMPLEX 1 TAB ORAL NOT-TAKING CLONAZEPAM 0.25 MG TABLET DISINTEGRATING 1 TABLET ON THE TONGUE AND ALLOW TO DISSOLVE 30 MINUTES BEFORE BEDTIME ORALLY ONCE A DAY NOT-TAKING BUSPIRONE HCL 15 MG TABLET 1 TABLET ORALLY TWICE A DAY NOT-TAKING ACYCLOVIR 400 MG TABLET 1 TABLET ORALLY TWICE A DAY MEDICATION LIST REVIEWED AND RECONCILED WITH THE PATIENT PAST MEDICAL HISTORY HYPERTENSION DIABETES MELLITUS HYPERLIPIDEMIA GASTROESOPHAGEAL REFLUX DISEASE HEMORRHOIDECTOMY LOW BACK PAIN ALLERGIES N.K.D.A. SOCIAL HISTORY GENERAL: TOBACCO USE ARE YOU A:NONSMOKER NEVER SMOKE LATEX QUESTIONNAIRE LATEX ALLERGY : HAVE YOU EVER DEVELOPED ANY TYPE OF REACTION AFTER HANDLING LATEX PRODUCTS SUCH RUBBER GLOVES, CONDOMS, DIAPHRAGMS, BALLOONS, SOCKS, OR UNDERWEAR?NO LATEX ALLERGY : HAVE YOU EVER DEVELOPED ANY TYPE OF REACTION DURING OR AFTER DENTAL APPOINTMENT, VAGINAL/RECTAL EXAMINATION, SURGICAL PROCEDURE, OR ANY OTHER EXPOSURE?NO LATEX RISK : HAVE YOU EVER HAD ANY DIFFICULTY BREATHING OR HIVES AFTER EATING OR HANDLING ANY FRUITS, OR VEGETABLES; SUCH KIWI, BANANAS, STONE FRUITS, OR CHESTNUTSNO LATEX RISK : DO YOU HAVE A PREVIOUS PERSONAL HISTORY OF MORE THAN NINE SURGERIES, SPINA BIFIDA, OR REPEATED CATHERIZATIONS? NO LATEX RISK : ARE YOU FREQUENTLY EXPOSED TO LATEX PRODUCTS IN YOUR OCCUPATION?NO DATE ASKED : 12/18/2020 ALCOHOL USE: NO. RECREATIONAL DRUG USE DRUG USE?NO LANGUAGE LANGUAGES SPOKEN:WELSH LEARNING BARRIERS / SPECIAL NEEDS BARRIERS TO LEARNING?NO HEARING IMPAIRED?NO VISION IMPAIRED?YES :CORRECTIVE LENSES READING COGNITIVELY IMPAIRED?NO READINESS TO LEARN?YES LEARNING PREFERENCES?NO LEARNING CAPABILITIES PRESENT?YES EMOTIONAL BARRIERS?NO SPECIAL DEVICES?YES :WALKER NEEDED TIMBER MANAGEMENT TECHNICIAN NEEDED?NO DOMESTIC VIOLENCE STATUS: DO YOU FEEL SAFE IN YOUR ENVIRONMENT?YES - HAS THE PATIENT BEEN EDUCATED REGARDING HIS/HER PLAN OF CARE?YES HAS THE PATIENT BEEN EDUCATED REGARDING PAIN, THE RISK FOR PAIN, THE IMPORTANCE OF EFFECTIVE PAIN MANAGEMENT, AND THE PAIN ASSESSMENT PROCESS?YES ADVANCE DIRECTIVE ADVANCE DIRECTIVE DISCUSSED WITH PATIENT:YES NEED TO BRING FORM HOSPITALIZATION/MAJOR DIAGNOSTIC PROCEDURE [facility] 06/2020 REVIEW OF SYSTEMS CONSTITUTIONAL: ANY RECENT FEVER NO . CHILLS NO . WEIGHT CHANGE OF UNKNOWN REASONS NO . GASTROENTEROLOGY: NEW UNEXPLAINABLE CHANGES IN BOWEL CONTROL NO . CONSTIPATION NO . GENITOURINARY: ANY NEW CHANGE IN BLADDER CONTROL? NO . NEUROLOGY: NEW ONSET DIZZINESS OR NEUROLOGICAL CHANGES NOT MENTIONED NO . NEW NUMBNESS OR PAIN PATTERNS NOT MENTIONED AND PERTINENT TO TODAY'S VISIT NO . CARDIOLOGY: NEW CHEST PRESSURE NO . PATIENT DENIES NO . RESPIRATORY: UNEXPLAINABLE COUGH NO . NEW SHORTNESS OF BREATH NO . VITAL SIGNS WT 200.2 LBS, HT 67 IN, BMI 31.35 INDEX, BP 173/80 MM HG, REPEAT BP 135/77 MM HG, HR 56 /MIN, RR 18 /MIN, TEMP 97.4 F, OXYGEN SAT % 97%, SAFE IN ENV? (Y/N) YES, NA INITIALS KS 10:42T.BEL COLLIER. EXAMINATION GENERAL EXAMINATION: GENERALAWAKE,ALERT ,PLEASANT . PSYCHAFFECT NORMAL . LUNGS:LUNG GILL ARE CLEAR TO AUSCULTATION BILATERALLY. GOOD MOVEMENT OF AIR . HEART:S1, S2 IN A REGULAR RATE AND RHYTHM. NO SIGNIFICANT MURMURS, RUBS OR GALLOPS NOTED . ASSESSMENTS CHRONIC PRESCRIPTION OPIATE USE - Z79.891 (PRIMARY) SPONDYLOSIS OF LUMBOSACRAL REGION WITHOUT MYELOPATHY OR RADICULOPATHY - M47.817 TREATMENT CHRONIC PRESCRIPTION OPIATE USE REFILL HYDROCODONE-ACETAMINOPHEN TABLET, 7.5-325 MG, 1 TABLET NEEDED, ORALLY, EVERY 6 HRS MDD4, 30 DAYS, 120 LAB: URINE TEST GROUP CARLOS STAPLES 12/18/2020 11:15:02 AM > LAST DOSE : CLONAZEPAM 12/18/2020 @9:30AM, GABAPENTIN 12/18/2020@9:30AM, HYDROCODONE 12/18/2020 @8:45 NOTES: ISTOP REGISTRY REVIEWED AND DEMONSTRATES COMPLLIANCE. PROCEDURE CODES FA211 ESTABILISHED PATIENT [facility] CHARGE DISPOSITION & COMMUNICATION FOLLOW UP 3 MONTHS (REASON: MED MGMNT/REVIEW UTOX) ELECTRONICALLY SIGNED BY DANNY BHATTI ON 12/19/2020 AT 04:18 PM EDT DISCLAIMER : THIS IS A VISIT SUMMARY EXTRACTED FROM THE [employer] CHART. IT IS NOT A COPY OF THE [employer] PROGRESS NOTE. ARAM
== END ==
LOC: M PAIN 10:30
PROVIDERS: ATTEND Nurse Practitioner Family
DX: M47.817 Spondylosis without myelopathy or radiculopathy, lumbosacral region (principal); I10 Essential (primary) hypertension; E11.9 Type 2 diabetes mellitus without complications; E78.5 Hyperlipidemia, unspecified; K21.9 Gastro-esophageal reflux disease without esophagitis; M54.5 Low back pain; Z79.82 Long term (current) use of aspirin; Z79.891 Long term (current) use of opiate analgesic; Z79.899 Other long term (current) drug therapy

== ENCOUNTER → 2021-03-19 | Outpatient (CLI) | payer MEDICARE, BC ==
[~2021-03-19] MED LIST changes: +LEVO750T13 PO; +OMEP40CA4 PO; -OMEP40CA97 PO
--- NOTE | 2021-03-20 04:27 | ECWPNPC ---
PATIENT NAME: DARYL YOUSSEF : 1950 GENDER: MALE VISIT DATE: 03/19/2021 DISCHARGE DATE: 03/19/21 1117 VISIT LOCKED DATE TIME: PHYSICIAN: LEOBARDO STEIN RESOURCE: LEOBARDO STEIN REASON FOR APPOINTMENT 1. MED MGMNT/REVIEW UTOX HISTORY OF PRESENT ILLNESS GENERAL: HERE FOR FOLLOW-UP OF CHRONIC LOW BACK PAIN WITH LEFT LEG RADICULAR SYMPTOMS. 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 FINDS HYDROCODONE HELPFUL AT REDUCING PAIN AND KEEPING HIM FUNCTIONAL. DENIES ADVERSE SIDE EFFECTS OF HIS MEDICATIONS. BRINGS IN HIS MEDICINE WHICH IS APPROPRIATE FOR WHAT IS DISPENSED. ACCOMPANIED IN THE EXAM ROOM WITH HIS . -. FALL RISK SCREENING: SCREENING ONE FALLS THIS YEAR NO MAJOR INJURIES, PATIENT STATED THAT HE DID NOT GO THE ER. PAIN SCREENING: PATIENT HAS A COMPLAINT OF ACUTE OR CHRONIC PAIN :YES LOCATION OF PAIN:LOW BACK INTENSITY OF PAIN (SCALE OF 1 TO 10):4 WHAT DOES YOUR PAIN FEEL LIKE:ACHING, CONTINOUS DURATION:ONLY WITH SPECIFIC ACTIVITIES, INTERMITTENT PAIN IS INCREASED BY:ACTIVITIES PAIN IS DECREASED BY:USE OF PAIN MEDICATIONS NURSING NOTE: -. PAIN CENTER INTAKE QUESTIONS: DO YOU HAVE A HISTORY OF MRSA? :YES DO YOU TAKE A BLOOD THINNERS? :NO DO YOU HAVE ANY BLEEDING DISORDERS? :NO ANY NEW NUMBNESS OR WEAKNESS IN YOUR LEGS OR ARMS? :NO ANY PACEMAKER,DEFIBRILLATOR, OR DORSAL COLUMN STIMULATOR? :NO DO YOU HAVE ANY RASHES OR OPEN SORES? :NO ARE YOU ALLERGIC TO IV DYE? :NO ARE YOU DIABETIC? :YES ANY NEW PROBLEMS WITH YOUR MEDICATIONS? :NO HAVE YOU RECEIVED A VACCINE IN THE PAST 30 DAYS? :YES 2ND COVID 11/06/2020 DO YOU PLAN TO RECEIVE A VACCINE IN THE NEXT 21 DAYS? :NO DO YOU NEED ANY PRESCRIPTION? :YES HYDROCODONE 7.5- 325MG DO YOU TAKE ANY IMMUNOSUPPRESSIVE MEDICATIONS? :NO IS THERE A CHANCE YOU COULD BE ? :NO ARE YOU BREAST FEEDING? :NO CURRENT MEDICATIONS TAKING VICODIN 7.5MG 3TAB THREE TIMES A DAY TAKING ACCU-CHEK ESTEE PLUS - STRIP TWICE DIRECTED IN VITRO TAKING AMLODIPINE BESYLATE 10 MG TABLET 1 TABLET ORALLY ONCE A DAY TAKING ASPIRIN 81 MG TABLET DELAYED RELEASE 1 TABLET ORALLY ONCE A DAY TAKING ATENOLOL 25 MG TABLET 1 TABLET ORALLY ONCE A DAY TAKING CELEXA 40 MG TABLET 0.5 TABLET ORALLY ONCE A DAY TAKING CLONAZEPAM 0.25 MG TABLET DISINTEGRATING 1 TABLET ON THE TONGUE AND ALLOW TO DISSOLVE 30 MINUTES BEFORE BEDTIME ORALLY ONCE A DAY TAKING FISH OIL 1000 MG CAPSULE 1 CAPSULE ORALLY ONCE A DAY TAKING SENNA PLUS 8.6-50 MG TABLET 1 TABLET IN THE EVENING NEEDED ORALLY ONCE A DAY TAKING VITAMIN C 500 MG CAPSULE DIRECTED ORALLY TAKING DEXAMETHASONE 4 MG TABLET 1 TABLET ORALLY ONCE A DAY TAKING DOCUSATE SODIUM 100 MG CAPSULE 1 CAPSULE NEEDED ORALLY ONCE A DAY TAKING FERROUS SULFATE 325 (65 FE) MG TABLET 1 TABLET ORALLY ONCE A DAY TAKING FLUTICASONE PROPIONATE 50 MCG/ACT SUSPENSION 1 SPRAY IN EACH NOSTRIL NASALLY ONCE A DAY TAKING GABAPENTIN 600 MG TABLET 1 TABLET ORALLY 3 A DAY TAKING VITAMIN B12 1000 MCG TABLET EXTENDED RELEASE 1 TABLET ORALLY ONCE A DAY TAKING HYDRALAZINE HCL 50 MG TABLET 1 TABLET WITH FOOD ORALLY THREE TIMES A DAY TAKING ISOSORBIDE MONONITRATE ER 120 MG TABLET EXTENDED RELEASE 24 HOUR 1 TABLET IN THE MORNING ORALLY ONCE A DAY TAKING JANUVIA 50 MG TABLET DIRECTED ORALLY TAKING MIRALAX 17 GM/SCOOP POWDER DIRECTED ORALLY TAKING SIMVASTATIN 20 MG TABLET 1 TABLET IN THE EVENING ORALLY ONCE A DAY TAKING TYLENOL 325 MG TABLET 1 TABLET NEEDED ORALLY EVERY 4 HRS TAKING VENTOLIN HFA 108 (90 BASE) MCG/ACT AEROSOL SOLUTION 1 PUFF NEEDED INHALATION EVERY 4 HRS TAKING ATENOLOL 25 MG TABLET 1 TABLET ORALLY ONCE A DAY TAKING BUSPIRONE HCL 10 MG TABLET 1 TABLET ORALLY TWICE A DAY TAKING CITALOPRAM HYDROBROMIDE 40 MG TABLET 0.5 TABLET ORALLY ONCE A DAY TAKING FLONASE 150 MCG 2 SPRAY IHS TAKING OMEPRAZOLE 40 MG CAPSULE DELAYED RELEASE 1 CAPSULE 30 MINUTES BEFORE MORNING MEAL ORALLY ONCE A DAY TAKING FUROSEMIDE 1 TAB ORAL 20MG DAILY TAKING POTASSIUM 1 TAB ORAL 10MG IN AM TAKING IRON 325 (65 FE) MG TABLET 1 TABLET ORALLY ONCE A DAY TAKING DENOSUMAB 120 MG/1.7ML SOLUTION 1.7 ML SUBCUTANEOUS TAKING ELLIE-C 500-550 MG TABLET DIRECTED ORALLY TAKING POMALYST 2 MG CAPSULE 1 CAPSULE ORALLY ONCE A DAY TAKING CARFILZOMIB 10 MG SOLUTION RECONSTITUTED DIRECTED INTRAVENOUS 2 WEEKS TAKING DECADRON 6 MG TABLET DIRECTED ORALLY 10 MG ONCE A WEEK TAKING DIVALPROEX SODIUM ER 250 MG TABLET EXTENDED RELEASE 24 HOUR 1 TABLET ORALLY TWICE A DAY TAKING SINGULAIR 10 MG TABLET 1 TABLET ORALLY ONCE A WEEK TAKING HYDROCODONE-ACETAMINOPHEN 7.5-325 MG TABLET 1 TABLET NEEDED ORALLY EVERY 6 HRS MDD4 TAKING BORTEZOMIB 1 TAB ORAL 2.6MG TWICE A WEEK BEFORE CHEMO TAKING DARATUMUMAB 100 MG/5ML SOLUTION DIRECTED INTRAVENOUS 1400MG ONCE A WEEK CHEMO TAKING DIPHENHYDRAMINE 1 TAB ORAL 50MG DAY OF CHEMO NOT-TAKING PROCHLORPERAZINE MALEATE 10 MG TABLET 1 TABLET NEEDED ORALLY THREE TIMES A DAY NOT-TAKING MORPHINE SULFATE 15 MG TABLET 1 TABLET NEEDED ORALLY EVERY 4 HRS NOT-TAKING ACETAMINOPHEN 325 MG TABLET 1 TABLET NEEDED ORALLY EVERY 4 HRS NOT-TAKING CALCIUM 600 MG TABLET 1 TABLET WITH MEALS ORALLY TWICE A DAY NOT-TAKING B COMPLEX 1 TAB ORAL NOT-TAKING CLONAZEPAM 0.25 MG TABLET DISINTEGRATING 1 TABLET ON THE TONGUE AND ALLOW TO DISSOLVE 30 MINUTES BEFORE BEDTIME ORALLY ONCE A DAY NOT-TAKING BUSPIRONE HCL 15 MG TABLET 1 TABLET ORALLY TWICE A DAY NOT-TAKING ACYCLOVIR 400 MG TABLET 1 TABLET ORALLY TWICE A DAY MEDICATION LIST REVIEWED AND RECONCILED WITH THE PATIENT PAST MEDICAL HISTORY HYPERTENSION DIABETES MELLITUS HYPERLIPIDEMIA GASTROESOPHAGEAL REFLUX DISEASE HEMORRHOIDECTOMY LOW BACK PAIN 2ND COVID 11/06/2020 ALLERGIES N.K.D.A. SOCIAL HISTORY GENERAL: TOBACCO USE ARE YOU A:NONSMOKER NEVER SMOKE LATEX QUESTIONNAIRE LATEX ALLERGY : HAVE YOU EVER DEVELOPED ANY TYPE OF REACTION AFTER HANDLING LATEX PRODUCTS SUCH RUBBER GLOVES, CONDOMS, DIAPHRAGMS, BALLOONS, SOCKS, OR UNDERWEAR?NO LATEX ALLERGY : HAVE YOU EVER DEVELOPED ANY TYPE OF REACTION DURING OR AFTER DENTAL APPOINTMENT, VAGINAL/RECTAL EXAMINATION, SURGICAL PROCEDURE, OR ANY OTHER EXPOSURE?NO LATEX RISK : HAVE YOU EVER HAD ANY DIFFICULTY BREATHING OR HIVES AFTER EATING OR HANDLING ANY FRUITS, OR VEGETABLES; SUCH KIWI, BANANAS, STONE FRUITS, OR CHESTNUTSNO LATEX RISK : DO YOU HAVE A PREVIOUS PERSONAL HISTORY OF MORE THAN NINE SURGERIES, SPINA BIFIDA, OR REPEATED CATHERIZATIONS? NO LATEX RISK : ARE YOU FREQUENTLY EXPOSED TO LATEX PRODUCTS IN YOUR OCCUPATION?NO DATE ASKED : 03/19/2021 ALCOHOL USE: NO. RECREATIONAL DRUG USE DRUG USE?NO LANGUAGE LANGUAGES SPOKEN:[place] LEARNING BARRIERS / SPECIAL NEEDS BARRIERS TO LEARNING?NO HEARING IMPAIRED?YES : ONLY WHEN THERE IS BACKGROUND NOISE VISION IMPAIRED?YES :CORRECTIVE LENSES READING COGNITIVELY IMPAIRED?NO READINESS TO LEARN?YES LEARNING PREFERENCES?NO LEARNING CAPABILITIES PRESENT?YES EMOTIONAL BARRIERS?NO SPECIAL DEVICES?YES :WALKER NEEDED SNOW BLOWER NEEDED?NO DOMESTIC VIOLENCE STATUS: DO YOU FEEL SAFE IN YOUR ENVIRONMENT?YES - HAS THE PATIENT BEEN EDUCATED REGARDING HIS/HER PLAN OF CARE?YES HAS THE PATIENT BEEN EDUCATED REGARDING PAIN, THE RISK FOR PAIN, THE IMPORTANCE OF EFFECTIVE PAIN MANAGEMENT, AND THE PAIN ASSESSMENT PROCESS?YES ADVANCE DIRECTIVE ADVANCE DIRECTIVE DISCUSSED WITH PATIENT:YES NEED TO BRING FORM HOSPITALIZATION/MAJOR DIAGNOSTIC PROCEDURE PNEUMONIA 06/2020 PNEUMONIA 12/2020 REVIEW OF SYSTEMS CONSTITUTIONAL: ANY RECENT FEVER NO . CHILLS NO . WEIGHT CHANGE OF UNKNOWN REASONS NO . GASTROENTEROLOGY: NEW UNEXPLAINABLE CHANGES IN BOWEL CONTROL NO . CONSTIPATION NO . GENITOURINARY: ANY NEW CHANGE IN BLADDER CONTROL? NO . NEUROLOGY: NEW ONSET DIZZINESS OR NEUROLOGICAL CHANGES NOT MENTIONED NO . NEW NUMBNESS OR PAIN PATTERNS NOT MENTIONED AND PERTINENT TO TODAY'S VISIT NO . CARDIOLOGY: NEW CHEST PRESSURE NO . PATIENT DENIES NO . RESPIRATORY: UNEXPLAINABLE COUGH NO . NEW SHORTNESS OF BREATH NO . VITAL SIGNS WT 207 LBS, HT 67 IN, BMI 32.42 INDEX, BP 160/96 MM HG, HR 71 /MIN, RR 18 /MIN, TEMP 97.4 F, OXYGEN SAT % 96%, SAFE IN ENV? 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 EXAMINATION GENERAL EXAMINATION: GENERALAWAKE,ALERT ,PLEASANT . PSYCHAFFECT NORMAL . LUNGS:LUNG GILL ARE CLEAR TO AUSCULTATION BILATERALLY. GOOD MOVEMENT OF AIR . HEART:S1, S2 IN A REGULAR RATE AND RHYTHM. NO SIGNIFICANT MURMURS, RUBS OR GALLOPS NOTED . ASSESSMENTS SPONDYLOSIS OF LUMBOSACRAL REGION WITHOUT MYELOPATHY OR RADICULOPATHY - M47.817 (PRIMARY) TREATMENT SPONDYLOSIS OF LUMBOSACRAL REGION WITHOUT MYELOPATHY OR RADICULOPATHY REFILL HYDROCODONE-ACETAMINOPHEN TABLET, 7.5-325 MG, 1 TABLET NEEDED, ORALLY, EVERY 6 HRS MDD4, 30 DAYS, 120 NOTES: ISTOP REGISTRY REVIEWED AND DEMONSTRATES COMPLLIANCE. BRINGS IN MEDICATIONS WHICH IS APPROPRIATE FOR WHAT WAS DISPENSED. RECENT URINE TOXICOLOGY REVIEWED. NO UNAUTHORIZED MEDICATIONS. NO ILLICIT SUBSTANCES AND PRESCRIBED MEDICATIONS WERE PRESENT. PROCEDURE CODES FA211 ESTABILISHED PATIENT [facility] CHARGE DISPOSITION & COMMUNICATION FOLLOW UP 3 MONTHS (REASON: MEDICATION MANAGEMENT) ELECTRONICALLY SIGNED BY DANNY BHATTI ON 03/19/2021 AT 02:52 PM EDT DISCLAIMER : THIS IS A VISIT SUMMARY EXTRACTED FROM THE [employer] CHART. IT IS NOT A COPY OF THE [employer] PROGRESS NOTE. ARAM
== END ==
LOC: M PAIN 10:30
PROVIDERS: ATTEND Nurse Practitioner Family
DX: M47.817 Spondylosis without myelopathy or radiculopathy, lumbosacral region (principal); G89.29 Other chronic pain; E11.9 Type 2 diabetes mellitus without complications; K21.9 Gastro-esophageal reflux disease without esophagitis; Z86.14 Personal history of Methicillin resistant Staphylococcus aureus infection; Z79.82 Long term (current) use of aspirin; Z79.84 Long term (current) use of oral hypoglycemic drugs; Z79.891 Long term (current) use of opiate analgesic; Z79.899 Other long term (current) drug therapy

== ENCOUNTER → 2021-06-19 | Outpatient (CLI) | payer MEDICARE, BC ==
[~2021-06-19] MED LIST changes: +PROHANCE 279.3MG/ML 15ML VIAL As Ordered ONE; +PROHANCE 279.3MG/ML 5ML VIAL As Ordered ONE
--- NOTE | 2021-06-20 16:42 | REPVR ---
PROCEDURE INFORMATION: Exam: MR Lumbar Spine Without and With Contrast Exam date and time: 06/19/2021 10:14 AM Age: 70 years old Clinical indication: Low back pain; Multiple myeloma, back pain TECHNIQUE: Imaging protocol: Multiplanar magnetic resonance images of the lumbar spine without and with intravenous contrast. Contrast material: PROHANCE; Contrast volume: 18 ml; Contrast route: INTRAVENOUS (IV); COMPARISON: MRI-LS SPINE W/O FOLL WITH CON 04/21/2019 7:36 AM FINDINGS: Chronic [id number] compression fracture of L1. Heterogeneous fatty marrow signal. Modic type 1 edematous degenerative endplate change at L5-S1. Remaining lumbar vertebral body heights are maintained. No cord compression. No abnormal cord signal. Conus medullaris terminates at the L1 level. Paravertebral soft tissues are unremarkable. L1-L2: Broad-based disc bulge and thickening of the ligamentum flavum cause mild to moderate canal narrowing. Severe bilateral foraminal narrowing with compression of the bilateral exiting L1 nerve roots. L2-L3: Broad-based disc bulge and facet hypertrophy cause mild canal narrowing with mild right and moderate left foraminal narrowing. L3-L4: Broad-based disc bulge and facet hypertrophy cause mild canal narrowing with mild left and moderate right foraminal narrowing. L4-L5: Broad-based disc bulge and facet hypertrophy cause mild canal narrowing with moderate left and severe right foraminal narrowing. Compression of the exiting right L4 nerve root. L5-S1: Broad-based disc bulge and facet hypertrophy cause severe bilateral foraminal narrowing with compression of the bilateral exiting L5 nerve roots. IMPRESSION: 1. Multilevel advanced spondylotic changes of the lumbar spine, as detailed above. 2. Other chronic findings, as above. Electronically signed by: Bhanu Head On 06/20/2021 16:42:01 PM
== END ==
LOC: M RAD 08:58
PROVIDERS: ATTEND Internal Medicine Medical Oncology
DX: M51.26 Other intervertebral disc displacement, lumbar region (principal); C90.00 Multiple myeloma not having achieved remission; M47.816 Spondylosis without myelopathy or radiculopathy, lumbar region
CPT/HCPCS: 72158; A9576

== ENCOUNTER → 2021-07-02 | Outpatient (CLI) | payer MEDICARE, BC ==
[~2021-07-02] MED LIST changes: +AMOX875T2; +CYCL1CAP2 PO; -PROHANCE 279.3MG/ML 15ML VIAL As Ordered ONE; -PROHANCE 279.3MG/ML 5ML VIAL As Ordered ONE
== END ==
LOC: M PAIN 10:45
PROVIDERS: ATTEND Anesthesiology
DX: M48.061 Spinal stenosis, lumbar region without neurogenic claudication (principal); M51.16 Intervertebral disc disorders with radiculopathy, lumbar region; G89.29 Other chronic pain; E11.9 Type 2 diabetes mellitus without complications; K21.9 Gastro-esophageal reflux disease without esophagitis; Z79.82 Long term (current) use of aspirin; Z79.891 Long term (current) use of opiate analgesic; Z79.84 Long term (current) use of oral hypoglycemic drugs; Z79.899 Other long term (current) drug therapy

== ENCOUNTER → 2021-10-01 | Outpatient (CLI) | payer MEDICARE, BC ==
[~2021-10-01] MED LIST changes: -CITA40TA4 PO; +CITA40TA7 PO; -MONT10TA10 PO; +MONT10TA97 PO; -OMEP-221 PO; +OMEP40CA5 PO; +ONDA-84 PO; -ONDA8TAB10 PO; -PROC10TA4 PO; +PROC10TA5 PO
== END ==
LOC: M PAIN 11:30
PROVIDERS: ATTEND Nurse Practitioner Family
DX: M51.16 Intervertebral disc disorders with radiculopathy, lumbar region (principal); M48.061 Spinal stenosis, lumbar region without neurogenic claudication; G89.29 Other chronic pain; E11.9 Type 2 diabetes mellitus without complications; Z79.82 Long term (current) use of aspirin; Z79.84 Long term (current) use of oral hypoglycemic drugs; Z79.891 Long term (current) use of opiate analgesic; Z79.899 Other long term (current) drug therapy

== ENCOUNTER → 2021-12-04 | Outpatient (CLI) | payer MEDICARE, BC | LOC: M PAIN 11:30 | PROVIDERS: ATTEND Nurse Practitioner Family | DX: M48.061 Spinal stenosis, lumbar region without neurogenic claudication (principal); G89.29 Other chronic pain; E11.9 Type 2 diabetes mellitus without complications; K21.9 Gastro-esophageal reflux disease without esophagitis; Z79.82 Long term (current) use of aspirin; Z79.84 Long term (current) use of oral hypoglycemic drugs; Z79.899 Other long term (current) drug therapy ==

== ENCOUNTER → 2022-03-13 | Outpatient (CLI) | payer MEDICARE, BC ==
[~2022-03-13] MED LIST changes: +AMLO1TAB24 PO; +FISH10005 PO; -FISH7.5C PO; +LEVO1TAB40 PO; -LEVO750T13 PO; +OMEP10CASR PO
== END ==
LOC: M PAIN 11:45
PROVIDERS: ATTEND Nurse Practitioner Family
DX: M48.061 Spinal stenosis, lumbar region without neurogenic claudication (principal); G89.29 Other chronic pain; E11.9 Type 2 diabetes mellitus without complications; K21.9 Gastro-esophageal reflux disease without esophagitis; Z79.82 Long term (current) use of aspirin; Z79.84 Long term (current) use of oral hypoglycemic drugs; Z79.899 Other long term (current) drug therapy

== ENCOUNTER → 2022-06-04 | Outpatient (CLI) | payer MEDICARE, BC ==
[~2022-06-04] MED LIST changes: +AUGMENTIN PO; +PEPC40TA12 PO
== END ==
LOC: M PAIN 11:00
PROVIDERS: ATTEND Nurse Practitioner Family
DX: M51.16 Intervertebral disc disorders with radiculopathy, lumbar region (principal); G89.29 Other chronic pain; E11.9 Type 2 diabetes mellitus without complications; I10 Essential (primary) hypertension; K21.9 Gastro-esophageal reflux disease without esophagitis; Z79.82 Long term (current) use of aspirin; Z79.84 Long term (current) use of oral hypoglycemic drugs; Z79.899 Other long term (current) drug therapy

== ENCOUNTER → 2022-07-23 | Outpatient (CLI) | payer MEDICARE, BC ==
[~2022-07-23] MED LIST changes: +ALBU8.5H INH
== END ==
LOC: M PAIN 11:00
PROVIDERS: ATTEND Nurse Practitioner Family
DX: M79.10 Myalgia, unspecified site (principal); G89.29 Other chronic pain; E11.9 Type 2 diabetes mellitus without complications; I10 Essential (primary) hypertension; K21.9 Gastro-esophageal reflux disease without esophagitis; Z79.82 Long term (current) use of aspirin; Z79.84 Long term (current) use of oral hypoglycemic drugs; Z79.899 Other long term (current) drug therapy

== ENCOUNTER → 2022-09-18 | Outpatient (CLI) | payer MEDICARE, BC ==
[~2022-09-18] MED LIST changes: +BUPIVACAINE HCL 0.25% 10ML VIAL As Ordered ONE; +BUPIVACAINE HCL 0.25% 30ML VIAL As Ordered ONE; +POMA4CAP PO; -POTA10CA32 PO; +POTA10CA33 PO; +SELI1TAB23 PO
== END ==
LOC: M PAIN 13:45
PROVIDERS: ATTEND Anesthesiology
DX: M79.18 Myalgia, other site (principal); G89.29 Other chronic pain; E11.9 Type 2 diabetes mellitus without complications; G47.30 Sleep apnea, unspecified; I10 Essential (primary) hypertension; K21.9 Gastro-esophageal reflux disease without esophagitis; Z86.14 Personal history of Methicillin resistant Staphylococcus aureus infection; Z79.82 Long term (current) use of aspirin; Z79.84 Long term (current) use of oral hypoglycemic drugs; Z79.899 Other long term (current) drug therapy

== ENCOUNTER → 2022-10-13 | Outpatient (CLI) | payer MEDICARE, BC ==
[~2022-10-13] MED LIST changes: -BUPIVACAINE HCL 0.25% 10ML VIAL As Ordered ONE; -BUPIVACAINE HCL 0.25% 30ML VIAL As Ordered ONE
== END ==
LOC: M PAIN 14:45
PROVIDERS: ATTEND Nurse Practitioner Family
DX: G89.29 Other chronic pain (principal); M79.10 Myalgia, unspecified site; I10 Essential (primary) hypertension; E11.9 Type 2 diabetes mellitus without complications; E78.5 Hyperlipidemia, unspecified; K21.9 Gastro-esophageal reflux disease without esophagitis; M54.50 Low back pain, unspecified; C90.00 Multiple myeloma not having achieved remission; Z79.891 Long term (current) use of opiate analgesic; Z79.82 Long term (current) use of aspirin; Z79.84 Long term (current) use of oral hypoglycemic drugs; Z79.899 Other long term (current) drug therapy